=== PATIENT | female | born 1950 | race Caucasian/White ===

== ENCOUNTER 2016-07-20 03:56 | Emergency (ER) | payer OTHER ==
[~2016-07-20] VITALS: Ht 161.3 cm; Wt 83.9 kg
[~2016-07-20 03:56] MED LIST: ATOR-26 PO; Calcium PO; DICL-201 PO; EVS60; LISI5TAB3 PO; METO-217 PO; MULTTAB58 PO; OXYB5TAB74 PO; PANT40TA PO; TRIA25CA PO
[2016-07-20 03:57] VITALS: TEMP 36.7; Ht 161.3 cm; Wt 83.9 kg
[2016-07-20 04:03] VITALS: O2SAT 98
[2016-07-20] MEDS ORDERED: SODIUM CHLORIDE 0.9% 1000ML 1,000 ML IV ONE (04:15)
[2016-07-20] MEDS ORDERED: NITROGLYCERIN OINT 2% 1GM PACKET EXT ONE (04:15)
[2016-07-20] MEDS ORDERED: METO50TA16 PO (04:30)
[2016-07-20 04:31] LABS: BASO % 0.6 %; BASO ABS # 0.03 K/uL (0-0.2); COMPLETE YES; EOS % 2.8 %; HEMATOCRIT 43.1 % (37-47); IG% 0.2 %; LYMPH % 31.4 %; LYMPH ABS # 1.71 K/uL (1.2-3.4); MEAN CELL VOLUME 93.1 fL (80-100); MEAN CORPUSCULAR HEMOGLOBIN 32.4 pg (25-34); MEAN CORPUSCULAR HGB CONC 34.8 g/dl (32-36); MEAN PLATELET VOLUME 9.8 fL (7.4-10.4); MONO % 8.4 %; NEUT % 56.6 %; PLATELET COUNT 201 K/uL (130-400); RED BLOOD COUNT 4.63 M/uL (4.2-5.4); WHITE BLOOD COUNT 5.45 K/uL (4.8-10.8)
[2016-07-20 04:44] LABS: ALT/SGPT 52 U/L (12-78); BLOOD UREA NITROGEN 19 mg/dl (7-18); CALCIUM 9.6 mg/dl (8.5-10.1); CARBON DIOXIDE 26 mmol/L (21-32); CHLORIDE 100 mmol/L (98-107); GLUCOSE 109 mg/dl (70-99); SODIUM 140 mmol/L (136-145)
[2016-07-20 04:53] LABS: ALKALINE PHOSPHATASE 129 U/L (45-117)
[2016-07-20 05:11] LABS: POTASSIUM 3.6 mmol/L (3.5-5.1); PROTHROMBIN TIME (PATIENT) 10.4 SECONDS (9.0-12.0)
[2016-07-20 05:19] LABS: MAGNESIUM 1.9 mg/dl (1.8-2.4)
[2016-07-20 06:16] LABS: MANUAL MICROSCOPIC REQUIRED? NO; REVIEW REQ? NO; URINE APPEARANCE CLEAR (CLEAR); URINE BILIRUBIN NEG (NEG); URINE COLOR YELLOW; URINE EPITHELIAL CELL AUTO 0-5 /lpf (0-5); URINE NITRITE NEG (NEG); URINE PH 6.5 (4.5-7.5); URINE SPECIFIC GRAVITY 1.003 (1.000-1.030); UROBILINOGEN NEG (NEG); ZZUR CULT IF INDIC CLEAN CATCH NO
[2016-07-20] MEDS ORDERED: METOPROLOL TARTRATE 50 MG TAB PO STA (06:18)
[2016-07-20] MEDS ORDERED: HydrALAZINE HCL 20 MG/ML VIAL IV. STA (06:18)
--- NOTE | 2016-07-20 07:29 | DIAGNOSTIC IMAGING REPORT ---
CHEST ONE VIEW PORTABLE CLINICAL HISTORY: Atypical chest pain. Cold symptoms. COMPARISON STUDY: No previous studies for comparison. FINDINGS: The heart is mildly enlarged. There is mild aortic tortuosity. There is no failure. There is no focal pulmonary consolidation. There are no pleural effusions.[ IMPRESSION: AP portable study. No acute findings. Electronically signed by: Jesus Rubalcava M.D. 07/20/2016 7:27 AM
--- NOTE | 2016-07-20 07:59 | EMERGENCY ROOM VISIT NOTE ---
ED Visit Note First contact with patient: 04:03 I have personally evaluated and examined this patient. I agree with assessment and plan of Aleksandr Barros PA-C. 66 yr old female with left chest pain radiating to shoulder concerning for ACS though initial EKG/Trop normal. Much improved with nitro and with BP coming down.
[2016-07-20] MEDS ORDERED: PERFLUTREN LIPID MICROSPHERE (DEFINITY) IV ONE (09:47)
--- NOTE | 2016-07-20 10:44 | Discharge Instructions ---
Discharge Instructions Admission Reason for Admission: Chest Pain Discharge Discharge Diagnosis / Problem: Chest pain. non-cardiac. Dyspepsia Discharge Goals Goal(s): Decrease discomfort Activity Recommendations Activity Limitations: resume your previous activity . Instructions / Follow-Up Instructions / Follow-Up dr morales in one week Current Hospital Diet Patient's current hospital diet: Discharge Diet Recommended Diet: Low Fat Diet Pending Studies Studies pending at discharge: no Laboratory Results Hemoglobin A1c Test 07/07/16 11:00 Range/Units Estimated Average Glucose 114 mg/dl Hemoglobin A1c 5.6 4.5-5.6 % Lipid Panel Test 07/07/16 11:00 Range/Units Triglycerides Level 419 H 0-150 mg/dl Cholesterol Level 219 H 0-200 mg/dl HDL Cholesterol 55 mg/dl LDL Cholesterol Direct 109 mg/dl Cholesterol/HDL Ratio 4.0 LDL Cholesterol, Calculated mg/dl Medical Emergencies . Who to Call and When: Medical Emergencies: If at any time you feel your situation is an emergency, please call 911 immediately. . Non-Emergent Contact Non-Emergency issues call your: Primary Care Provider . . "Provider Documentation" section prepared by Sahil Morales. VTE Core Measure Inpt VTE Proph given/why not?: Treatment not indicated
[2016-07-20 10:56] VITALS: BP 160/86; PULSE 75; O2SAT 95
--- NOTE | 2016-07-20 10:58 | EXERCISE STRESS ECHO ---
*NOTICE TO RECEIVING [employer] This information is strictly Confidential and protected under [place] law. [place] law prohibits you from making any further disclosure of this information unless further disclosure is expressly permitted by the written consent of the person to whom it pertains or is authorized by law. A general authorization for the release of medical or other information is not sufficient for this purpose. Hospital accepts no responsibility if the information is made available to any other person, INCLUDING THE PATIENT. Interpretation Summary * The stress ECG response was normal * Suboptimal stress test due to inadequate maximum heart rate. * Stress wall motion was normal. * Normal resting biventricular systolic function. Moderate concentric left ventricular hypertrophy. Left ventricular diastolic dysfunction. Normal chamber dimensions. Normal echo response to exercise at 75 % MPHR. No significant valvular abnormalities. * -- Conclusions -- * Aortic valve sclerosis mild, without significant aortic valvular stenosis. Procedure Details * ECHOEX, CPT #86264 * ECHO COLOR FLOW, CPT #[id number] * ECHO DOPPLER, CPT #80682 * The study was technically limited with all images being suboptimal in quality. * A contrast injection of Definity was performed to improve assessment of LV function. * Contrast was injected into an intravenous site in the left arm. * One vial of Definity ultrasound contrast was diluted in normal saline to a total volume of 10 ml. A total of '5' ml of solution was administered during imaging. * Lot # [id number] of Definity utilized for procedure. * Expiration date DEC 31. * The attending nurse who injected the contrast agent was IVON LUND CPL, RN. Left Ventricle * The left ventricle is normal in size. * There is moderate concentric left ventricular hypertrophy. * Ejection Fraction = 55-60%. * Left ventricular systolic function is normal. * The left ventricular ejection fraction increases normally with stress. The left ventricular end-systolic cavity size reduces post-stress (normal response). The left ventricular wall motion with stress is normal. * A full diastolic examination was done with clinical findings of Class I diastolic dysfunction. * Resting wall motion: Normal. Stress wall motion: Appropriate increase in Left ventricular systolic function and decrease in cavity size. No stress induced segmental wall motion abnormalities. Right Ventricle * The right ventricle is normal in size and function. Atria * The left atrial size is normal. * Right atrial size is normal. * No ASD detected; PFO is not assessed. Mitral Valve * There is mild mitral annular calcification. * There is no mitral valve stenosis. * There is no mitral regurgitation noted. Tricuspid Valve * The tricuspid valve is not well visualized. * No tricuspid regurgitation. Aortic Valve * The aortic valve is trileaflet. * The aortic valve opens well. * Aortic valve sclerosis mild, without significant aortic valvular stenosis. * No aortic regurgitation is present. Pulmonic Valve * The pulmonic valve is not well visualized. * There is no pulmonic valvular regurgitation. Great Vessels * The aortic root is normal size. Stress Parameters * Normal baseline electrocardiogram. * The stress ECG response was normal * The stress portion of this study was personally supervised by the undersigned interpreting physician. * Rest heart rate was '69' BPM. * Rest blood pressure was '140/92' * Maximum heart rate achieved was 115 bpm. * Maximum heart rate was 75 % of maximum age-predicted heart rate. * Maximum blood pressure was '178/92' * Total exercise time was '03:00' * Maximum exercise MET level achieved was '4.60' METS * Maximum treadmill speed was '1.70' miles per hour. * Maximum treadmill elevation was '10.00'% grade. * Exercise was terminated due to 'SHORTNESS OF BREATH' * Target Heart Rate was not achieved due to dyspnea. * No chest pain during or following exercise. MMode 2D Measurements and Calculations IVSd 1.7 cm IVSs 1.8 cm LVIDd 3.6 cm LVIDs 2.5 cm LVPWd 1.0 cm LVPWs 1.6 cm IVS/LVPW 1.7 FS 28.6 % EDV(Teich) 53.2 ml ESV(Teich) 23.4 ml EF(Teich) 56.1 % EDV(cubed) 45.4 ml ESV(cubed) 16.5 ml EF(cubed) 63.6 % % IVS thick 6.4 % % LVPW thick 61.8 % LV mass(C)d 165.4 grams LV mass(C)dI 88.0 grams/m\S\2 LV mass(C)s 162.2 grams LV mass(C)sI 86.3 grams/m\S\2 SV(Teich) 29.9 ml SI(Teich) 15.9 ml/m\S\2 SV(cubed) 28.9 ml SI(cubed) 15.4 ml/m\S\2 Ao root diam 3.7 cm Ao root area 10.6 cm\S\2 ACS 1.8 cm LA dimension 3.5 cm LA/Ao 0.96 LVOT diam 2.0 cm LVOT area 3.2 cm\S\2 LVAd ap4 28.7 cm\S\2 LVLd ap4 7.7 cm EDV(MOD-sp4) 88.7 ml EDV(sp4-el) 90.8 ml LVAs ap4 16.1 cm\S\2 LVLs ap4 5.6 cm ESV(MOD-sp4) 39.7 ml ESV(sp4-el) 39.0 ml EF(MOD-sp4) 55.3 % EF(sp4-el) 57.1 % LVAd ap2 24.1 cm\S\2 LVLd ap2 7.4 cm EDV(MOD-sp2) 64.3 ml EDV(sp2-el) 66.2 ml LVAs ap2 15.9 cm\S\2 LVLs ap2 6.2 cm ESV(MOD-sp2) 34.3 ml ESV(sp2-el) 34.3 ml EF(MOD-sp2) 46.6 % EF(sp2-el) 48.2 % LVLd %diff -3.03 % EDV(MOD-bp) 75.2 ml LVLs %diff 9.4 % ESV(MOD-bp) 39.1 ml EF(MOD-bp) 48.0 % SV(MOD-sp4) 49.1 ml SI(MOD-sp4) 26.1 ml/m\S\2 SV(MOD-sp2) 30.0 ml SI(MOD-sp2) 15.9 ml/m\S\2 SV(MOD-bp) 36.1 ml SI(MOD-bp) 19.2 ml/m\S\2 SV(sp4-el) 51.8 ml SI(sp4-el) 27.6 ml/m\S\2 SV(sp2-el) 31.9 ml SI(sp2-el) 17.0 ml/m\S\2 Doppler Measurements and Calculations MV E max lainey 73.5 cm/sec MV A max lainey 82.4 cm/sec MV E/A 0.89 MV P1/2t max lainey 79.9 cm/sec MV P1/2t 80.2 msec MVA(P1/2t) 2.7 cm\S\2 MV dec slope 291.8 cm/sec\S\2 MV dec time 0.23 sec Ao V2 max 119.5 cm/sec Ao max PG 5.7 mmHg Ao max PG (full) 1.5 mmHg JH(V,A) 2.8 cm\S\2 JH(V,D) 2.8 cm\S\2 LV V1 max PG 4.3 mmHg LV V1 max 103.2 cm/sec PA V2 max 80.5 cm/sec PA max PG 2.6 mmHg
--- NOTE | 2016-07-20 22:40 | INTERNAL MEDICINE CONSULTATION ---
DATE OF CONSULTATION: 07/20/2016 HISTORY OF PRESENT ILLNESS: A 66-year-old female who was seen in the Emergency Room this morning. The patient presented to the Emergency Room complaining of chest pain. She does not have any prior coronary artery disease. She is treated for arterial hypertension and hyperlipidemia. The patient had her dinner last night. She had chicken lasagna. This morning she woke up around 3:00 in the morning. She was complaining of pain mostly in the most upper epigastric area and the pain radiated upward into her chest and towards the left shoulder. She felt short of breath. She had no diaphoresis. No dizziness, no lightheadedness. No nausea or vomiting. The pain persisted. She got up and tried to walk it off but it persisted, so her brought her to the Emergency Room. The patient was evaluated by Dr. Robbins. Multiple tests were done. Her electrocardiogram was normal. Her troponin I was negative and the rest of her cardiac isoenzymes were also normal. Question whether she needed admission. I saw the patient in the Emergency Room. She was resting comfortably. Her blood pressure was markedly elevated. She was given 1 dose of IV hydralazine 10 mg and she was also given her usual dose of metoprolol 75 mg p.o. PAST MEDICAL HISTORY: Her medical problems include: 1. Arterial hypertension. 2. Hyperlipidemia. 3. Inflammatory arthritis. 4. Gastroesophageal reflux. 5. Obesity. 6. Hyperglycemia. MEDICATIONS: Her home medication list included: 1. Metoprolol tartrate 75 mg twice a day. 2. Triamterene/HCTZ 37.5/25 one tablet daily. 3. Diclofenac 75 mg twice a day. 4. Pantoprazole 40 mg daily. 5. Lisinopril 5 mg daily. 6. Atorvastatin 80 mg daily. 7. Oxybutynin 5 mg twice a day. PHYSICAL EXAMINATION: GENERAL: Well developed, in no acute distress. Her recorded weight was 83.9 kg, height 161.3 cm, BMI 32.2. VITAL SIGNS: Blood pressure 176/85, pulse 75, respirations 18, oxygen saturation 97% on room air. Her temperature was 36.7. SKIN: Warm and dry. No rash. HEENT: She usually wears glasses. No mucosal abnormality. NECK: Supple without adenopathy or thyromegaly. No JVD. HEART: Regular heart sounds. No murmur, rub, or gallop. LUNGS: Clear. ABDOMEN: Soft, nontender. No organomegaly or masses. BACK: No spinal tenderness. EXTREMITIES: No edema, clubbing, or cyanosis. Good pulses. LABORATORY TESTS: WBC count 5450, hemoglobin 15, hematocrit 43.1, platelet count 201,000. Sodium 140, potassium 3.6, chloride 100, CO2 26, BUN 19, creatinine 1.0, glucose 109, calcium 9.6, magnesium 1.9, total bilirubin 0.8, AST 32, ALT 52, alkaline phosphatase 129, total CK 168, MB fraction 2.8. Troponin I less than 0.015 on arrival to the Emergency Room and I repeated a second one and was still less than 0.015 at 6:35 a.m. Total protein 8.6, albumin 4.3, globulin 4.3. Her lipase was 172 and TSH 3.770. Her electrocardiogram was normal. Her chest x-ray showed no cardiopulmonary abnormality. ASSESSMENT: 1. Chest pain. 2. Arterial hypertension. 3. Hyperlipidemia. 4. Obesity. 5. Inflammatory arthritis. 6. Hyperglycemia. PLAN: 1. After I saw the patient in the Emergency Room, I made arrangements for her to have a stress echo done. This was done. I spoke later after the test was done, to Dr. Kim. Even though the patient did not reach the maximum predicted heart rate, but his feeling was that the test was negative for any evidence of any ischemia. She had no EKG changes and no echocardiogram evidence of any ischemia. 2. The patient was discharged from the Emergency Room. She will resume all her medications. 3. Follow up in the office in 1 week. 4. It is very likely that the chest pain that she presented with is most likely dyspeptic in nature.
--- NOTE | 2016-07-21 06:30 | EMERGENCY ROOM VISIT NOTE ---
History First contact with patient: 04:03 Chief Complaint: CHEST PAIN Stated Complaint: CHEST PAIN Nursing Triage Summary: pt woke with mid sternal CP that radiates to left and her back. pt states it happened approx 0245. hx HTN. pt took tums. feels like pain may be gas but Tums didn't work. reports cold symptoms started today, has nasal drainage and cough. feels like she has been mouth breathing today. +SOB all day with cold symptoms. History of Present Illness The patient is a 66 year old female who presents to the Emergency Room with complaints of midsternal chest pain radiating to her left side and through to her back. The patient states that it began about 1 hour 15 minutes ago. She thought her symptoms might be GERD related and took times without relief. The patient has had some head cold/stuffiness today. She does have a family history of cardiac disease. She does not herself have a history of cardiac disease. She states the pain is dull. She has had some shortness of breath. Activity does not appear to improve or worsen her symptoms. She is allergic to aspirin and has a history of hives with this, and has not taken anything over- the-counter for her symptoms. Review of Systems More than 10 systems were reviewed and otherwise negative with the exception of history of present illness. Past Medical/Surgical History History of GERD and dyslipidemia Family History No pertinent family history Social History Smoking Status: Former Smoker Current/Historical Medications Scheduled Atorvastatin (Lipitor), 80 MG PO QAM Diclofenac (Voltaren), 75 MG PO BID Lisinopril (Zestril), 5 MG PO HS Metoprolol Tartrate (Lopressor) (Lopressor), 75 MG PO BID Oxybutynin Chloride (Ditropan), 5 MG PO QAM Pantoprazole (Protonix), 40 MG PO QAM Triamterene & Hydrochlorothiaz (Hctz/Triamterene), 37.5 CAP PO QAM Allergies Coded Allergies: Aspirin (Unverified Allergy, Unknown, HIVES, 07/20/16) Ibuprofen (Unverified Allergy, Unknown, HIVES, 07/20/16) Naproxen (Verified Allergy, Unknown, HIVES, 07/20/16) Piroxicam (Verified Allergy, Unknown, HIVES, 07/20/16) Sulfa Drugs (Unverified Allergy, Unknown, VOMITING/HIVES, 07/20/16) Tetracycline (Verified Allergy, Unknown, HIVES, 07/20/16) Physical Exam Vital Signs Date Time Temp Pulse Resp B/P Pulse Ox O2 Delivery O2 Flow Rate FiO2 07/20/16 10:56 75 18 160/86 95 07/20/16 09:58 75 18 155/91 97 Room Air 07/20/16 08:17 73 18 173/81 97 Room Air 07/20/16 08:02 82 07/20/16 07:31 75 18 176/85 97 Room Air 07/20/16 06:59 77 18 172/90 98 Room Air 07/20/16 06:02 75 18 195/99 98 Room Air 07/20/16 05:12 76 18 179/106 98 Room Air 07/20/16 04:09 85 07/20/16 04:07 97 Room Air 07/20/16 04:03 98 Room Air 07/20/16 03:57 36.7 79 20 200/94 97 Room Air Pain Rating (0-10): 0 Physical Exam VITALS: Vitals are noted on the nurse's note and reviewed by myself. Vital signs with elevated blood pressure GENERAL: Well-developed, well-nourished, white female, who is in no acute distress and resting comfortably. Patient is cooperative with the examination. HEAD: Normocephalic atraumatic. HEART: Regular rate and rhythm without murmurs gallops or rubs. LUNGS: Clear to auscultation bilaterally without wheezes, rales or rhonchi. No retractions or accessory muscle use. ABDOMEN: Positive normal bowel sounds x 4. Soft, nontender, without masses or organomegaly. No guarding or rebound tenderness. MUSCULOSKELETAL: No muscle atrophy, erythema, or edema noted. Full range of motion without joint tenderness in all extremities Medical Decision & Procedures ER Provider Diagnostic Interpretation: CHEST ONE VIEW PORTABLE CLINICAL HISTORY: Atypical chest pain. Cold symptoms. COMPARISON STUDY: No previous studies for comparison. FINDINGS: The heart is mildly enlarged. There is mild aortic tortuosity. There is no failure. There is no focal pulmonary consolidation. There are no pleural effusions.[ IMPRESSION: AP portable study. No acute findings. Laboratory Results 07/20/16 04:10 Red Blood Count 4.63, Mean Corpuscular Volume 93.1, Mean Corpuscular Hemoglobin 32.4, Mean Corpuscular Hemoglobin Concent 34.8, Mean Platelet Volume 9.8, Neutrophils (%) (Auto) 56.6, Lymphocytes (%) (Auto) 31.4, Monocytes (%) (Auto) 8.4, Eosinophils (%) (Auto) 2.8, Basophils (%) (Auto) 0.6, Neutrophils # (Auto) 3.09, Lymphocytes # (Auto) 1.71, Monocytes # (Auto) 0.46, Eosinophils # (Auto) 0.15, Basophils # (Auto) 0.03 07/20/16 04:10 07/20/16 04:50 Test 07/20/16 04:10 07/20/16 04:50 07/20/16 06:00 07/20/16 06:35 White Blood Count 5.45 K/uL (4.8-10.8) Red Blood Count 4.63 M/uL (4.2-5.4) Hemoglobin 15.0 g/dL (12.0-16.0) Hematocrit 43.1 % (37-47) Mean Corpuscular Volume 93.1 fL (80-100) Mean Corpuscular Hemoglobin 32.4 pg (25-34) Mean Corpuscular Hemoglobin Concent 34.8 g/dl (32-36) Platelet Count 201 K/uL (130-400) Mean Platelet Volume 9.8 fL (7.4-10.4) Neutrophils (%) (Auto) 56.6 % Lymphocytes (%) (Auto) 31.4 % Monocytes (%) (Auto) 8.4 % Eosinophils (%) (Auto) 2.8 % Basophils (%) (Auto) 0.6 % Neutrophils # (Auto) 3.09 K/uL (1.4-6.5) Lymphocytes # (Auto) 1.71 K/uL (1.2-3.4) Monocytes # (Auto) 0.46 K/uL (0.11-0.59) Eosinophils # (Auto) 0.15 K/uL (0-0.5) Basophils # (Auto) 0.03 K/uL (0-0.2) RDW Standard Deviation 46.2 fL (36.4-46.3) RDW Coefficient of Variation 13.5 % (11.5-14.5) Immature Granulocyte % (Auto) 0.2 % Immature Granulocyte # (Auto) 0.01 K/uL (0.00-0.02) Anion Gap 14.0 mmol/L (3-11) Est Creatinine Clear Calc Drug Dose 55.8 ml/min Estimated GFR () 67.0 Estimated GFR (Non- 57.8 BUN/Creatinine Ratio 19.0 (10-20) Calcium Level 9.6 mg/dl (8.5-10.1) Total Bilirubin 0.8 mg/dl (0.2-1) Alanine Aminotransferase (ALT/SGPT) 52 U/L (12-78) Alkaline Phosphatase 129 U/L (45-117) Creatine Kinase MB 2.8 ng/ml (0.5-3.6) Creatine Kinase MB Ratio (0-3.0) Total Protein 8.6 gm/dl (6.4-8.2) Albumin 4.3 gm/dl (3.4-5.0) Globulin 4.3 gm/dl (2.5-4.0) Albumin/Globulin Ratio 1.0 (0.9-2) Lipase 172 U/L (73-393) Thyroid Stimulating Hormone (TSH) 3.770 uIu/ml (0.300-4.500) Prothrombin Time 10.4 SECONDS (9.0-12.0) Prothromb Time International Ratio 1.0 (0.9-1.1) Activated Partial Thromboplast Time 26.2 SECONDS (21.0-31.0) Partial Thromboplastin Ratio 1.0 D-Dimer 410 ug/L FEU (0-500) Magnesium Level 1.9 mg/dl (1.8-2.4) Aspartate Amino Transf (AST/SGOT) 32 U/L (15-37) Total Creatine Kinase 168 U/L (26-192) Urine Color YELLOW Urine Appearance CLEAR (CLEAR) Urine pH 6.5 (4.5-7.5) Urine Specific [place] 1.003 (1.000-1.030) Urine Protein NEG (NEG) Urine Glucose (UA) NEG (NEG) Urine Ketones NEG (NEG) Urine Occult Blood NEG (NEG) Urine Nitrite NEG (NEG) Urine Bilirubin NEG (NEG) Urine Urobilinogen NEG (NEG) Urine Leukocyte Esterase TRACE (NEG) Urine WBC (Auto) 1-5 /hpf (0-5) Urine RBC (Auto) 0-4 /hpf (0-4) Urine Hyaline Casts (Auto) 0 /lpf (0-5) Urine Epithelial Cells (Auto) 0-5 /lpf (0-5) Urine Bacteria (Auto) NEG (NEG) Troponin I < 0.015 ng/ml (0-0.045) Medications Administered Medications (Trade) Dose Ordered Sig/Oneil Route Start Time Stop Time Status Last Admin Dose Admin Nitroglycerin 1 inch 1 inch NOW ONCE EXT 07/20/16 04:15 07/20/16 04:17 DC 07/20/16 04:27 1 INCH Sodium Chloride (Nss 1000ml) 1,000 ml @ 999 mls/hr Q1H1M ONCE IV 07/20/16 04:15 07/20/16 05:15 DC 07/20/16 04:27 999 MLS/HR Hydralazine HCl (HydrALAZINE INJ) 10 mg NOW STAT IV. 07/20/16 06:18 07/20/16 06:32 DC 07/20/16 06:38 10 MG Metoprolol Tartrate (Lopressor Tab) 75 mg ONE STAT PO 07/20/16 06:18 07/20/16 06:32 DC 07/20/16 06:38 75 MG Perflutren Lipid Microsphere (Definity) 2 ml ONE ONCE IV 07/20/16 09:47 07/20/16 09:48 DC 07/20/16 09:48 2 ML ED Course Physical exam and history were performed. Nursing notes and EMR were reviewed. Patient appears to have central chest pain radiating to her left side chest. The patient does have elevated blood pressure. EKG was performed and was normal sinus rhythm without acute ST elevation or evidence of ischemia. IV access was established and labs were obtained. Chest x-ray was performed. The patient was given 1 inch Nitropaste and placed on a case monitor. The patient's blood work is as above and was reviewed. She does not have a significantly elevated white blood cell count, anemia, bandemia, gross electrolyte imbalance. Troponin 1 is negative. She did have some improvement of her blood pressure with Nitropaste, however this did go up and down. I do have concern regarding the patient's symptoms, as they may be cardiac in nature. I discussed the case with patient's primary care physician, Dr. Kayla He, who agreed to evaluate the patient here in the department. Please see Dr. Morales's dictation for further patient course, plan, and disposition. The chart was completed utilizing [employer] Speech Voice Recognition Software. Grammatical errors, random word insertions, pronoun errors, and incomplete sentences are an occasional consequence of this system due to software limitations, ambient noise, and hardware issues. Any formal questions or concerns about the content, text, or information contained within the body of this dictation should be directly addressed to the provider for clarification. . Medical Decision Differential diagnosis includes, but is not limited to: Myocardial infarction, dysrhythmia, pericarditis, pneumothorax, aortic aneurysm/dissection, DVT/PE, anxiety, GERD, PUD, electrolyte imbalance, thyroid disorder, pneumonia, bronchitis, pancreatitis, and others Impression Primary Impression: Non-cardiac chest pain Departure Information Dispostion Home / Self-Care Referrals Sahil Zaman M.D. (PCP) Forms HOME CARE DOCUMENTATION FORM, IMPORTANT VISIT INFORMATION Patient Instructions A Signature Page, [facility] [employer] [facility]
== END 2016-07-20 10:56 | disposition home or self-care (01) ==
LOC: C.EDB 03:57 → C.EDA 10:56
DX: R07.89 Other chest pain (principal); I10 Essential (primary) hypertension; E66.9 Obesity, unspecified; E78.5 Hyperlipidemia, unspecified; K21.9 Gastro-esophageal reflux disease without esophagitis; Z87.891 Personal history of nicotine dependence; Z79.899 Other long term (current) drug therapy

== ENCOUNTER → 2017-01-09 | Outpatient (CLI) | payer OTHER ==
[~2017-01-09] MED LIST changes: +CALC500C70 PO; -Calcium PO; +DTR/5 PO; -EVS60; +LSN5 PO; -METO-217 PO; +METO50TA16 PO; +MULT-506 PO; -MULTTAB58 PO; -OXYB5TAB74 PO; +TRIA75TA PO
== END | disposition home or self-care (01) ==
LOC: C.PAPS 16:08
PROVIDERS: ATTEND Internal Medicine
DX: Z12.4 Encounter for screening for malignant neoplasm of cervix (principal)

== ENCOUNTER → 2017-01-09 | Outpatient (CLI) | payer OTHER ==
[~2017-01-09] MED LIST changes: -DTR/5 PO; +OXYB5TAB74 PO
[2017-01-09 13:23] LABS: BASO % 0.8 %; BASO ABS # 0.04 K/uL (0-0.2); COMPLETE YES; EOS % 2.3 %; IG% 0.2 %; LYMPH % 28.3 %; LYMPH ABS # 1.45 K/uL (1.2-3.4); MEAN CELL VOLUME 90.5 fL (80-100); MEAN CORPUSCULAR HEMOGLOBIN 30.5 pg (25-34); MEAN CORPUSCULAR HGB CONC 33.7 g/dl (32-36); MEAN PLATELET VOLUME 10.4 fL (7.4-10.4); MONO % 6.2 %; NEUT % 62.2 %; PLATELET COUNT 233 K/uL (130-400); WHITE BLOOD COUNT 5.13 K/uL (4.8-10.8)
[2017-01-09 13:26] LABS: ESTIMATED AVERAGE GLUCOSE 123 mg/dl; HA1C FLAG Normal (Normal)
[2017-01-09 13:42] LABS: ALT/SGPT 47 U/L (12-78); AST/SGOT 34 U/L (15-37); BLOOD UREA NITROGEN 21 mg/dl (7-18); BUN/CREATININE RATIO 21.4 (10-20); CARBON DIOXIDE 27 mmol/L (21-32); CHLORIDE 102 mmol/L (98-107); CHOLESTEROL 187 mg/dl (0-200); GLUCOSE 104 mg/dl (70-99); POTASSIUM 3.4 mmol/L (3.5-5.1); SODIUM 139 mmol/L (136-145); TRIGLYCERIDES 307 mg/dl (0-150); VERY LOW DENSITY LIPOPROT CALC 61 mg/dl
[2017-01-09 13:44] LABS: ALB/GLOB RATIO 1.3 (0.9-2); ALKALINE PHOSPHATASE 69 U/L (45-117); CHOLESTEROL/HDL RATIO 4.3; HDL CHOLESTEROL 43 mg/dl
[2017-01-09 13:46] LABS: CALCIUM 9.8 mg/dl (8.5-10.1)
== END | disposition home or self-care (01) ==
LOC: C.LABSPEC 12:18
PROVIDERS: ATTEND Internal Medicine
DX: R73.9 Hyperglycemia, unspecified (principal); I10 Essential (primary) hypertension; E78.5 Hyperlipidemia, unspecified; M06.4 Inflammatory polyarthropathy; B35.1 Tinea unguium

== ENCOUNTER → 2017-01-13 | Outpatient (CLI) | payer OTHER | END | disposition home or self-care (01) | LOC: C.LABSPEC 16:52 | PROVIDERS: ATTEND Internal Medicine | DX: Z12.11 Encounter for screening for malignant neoplasm of colon (principal) ==

== ENCOUNTER 2017-03-14 12:11 | Emergency (ER) | payer OTHER ==
[~2017-03-14 12:11] MED LIST changes: -CALC500C70 PO; -LSN5 PO; -MULT-506 PO; -TRIA75TA PO
[2017-03-14 12:14] VITALS: Ht 160 cm
[2017-03-14 12:42] VITALS: O2SAT 95
[2017-03-14 12:50] LABS: HEMATOCRIT 37.9 % (37-47); MEAN CELL VOLUME 87.3 fL (80-100); MEAN CORPUSCULAR HEMOGLOBIN 30.4 pg (25-34); MEAN CORPUSCULAR HGB CONC 34.8 g/dl (32-36); MEAN PLATELET VOLUME 9.8 fL (7.4-10.4); PLATELET COUNT 235 K/uL (130-400); RED BLOOD COUNT 4.34 M/uL (4.2-5.4)
[2017-03-14] MEDS ORDERED: ACETAMINOPHEN 500 MG TAB PO STA (12:53)
--- NOTE | 2017-03-14 12:59 | EMERGENCY ROOM VISIT NOTE ---
History Report prepared by Ankuribe: Ladi Null Under the Supervision of: Dr. Flaco Alcantara M.D. First contact with patient: 12:47 Chief Complaint: CHEST PAIN Stated Complaint: CHEST PAIN, NAUSEA, HEADACHE, UNDER EYE PRESSURE Nursing Triage Summary: Patient c/o mid sternal chest pain that began approx 10 minutes ago while she was driving. Pain is sharp, mid chest in to left chest, shoulder and bilateral jaw. Associated nausea when pain began. Hx controlled arhythmia with Lopressor. History of Present Illness The patient is a 66 year old female who presents to the Emergency Room with complaints of sudden stabbing central chest pain that started an hour ago. The patient states that she felt nauseous and had jaw, left shoulder, and back pain. She also notes she was slightly short of breath and had a headache. She ranks her pain as a 5/10. She denies any sweating with the onset of her symptoms. She was driving when the pain began. She is under a lot of stress right now--her is ill. Source of History: patient Onset: an hour ago Position: chest Symptom Intensity: 5/10 Quality: stabbing Timing: other (sudden) Associated Symptoms: + headache, + SOB Note: Pt notes jaw, left shoulder, and back pain. Pt denies sweating with onset of symptoms. Review of Systems See HPI for pertinent positives & negatives. A total of 10 systems reviewed and were otherwise negative. Past Medical & Surgical Medical Problems: (1) Arrhythmia Family History no pertinent family history stated. Social History Smoking Status: Former Smoker Marital Status: Current/Historical Medications Scheduled Atorvastatin (Lipitor), 80 MG PO QAM Calcium/Vitamin D (Os-[place]on 500 Plus D), 1 TAB PO DAILY Diclofenac (Voltaren), 75 MG PO BID Lisinopril (Lisinopril), 5 MG PO HS Metoprolol Tartrate (Lopressor) (Lopressor), 75 MG PO BID Multivitamin (Multivitamin), 1 TAB PO DAILY Oxybutynin Chloride (Ditropan), 5 MG PO QAM Pantoprazole (Protonix), 40 MG PO QAM Triamterene & Hydrochlorothiaz (Hctz/Triamterene), 1 TAB PO DAILY Allergies Coded Allergies: Aspirin (Unverified Allergy, Unknown, HIVES, 03/14/17) Celecoxib (Unverified Allergy, Unknown, ., 03/14/17) Ibuprofen (Unverified Allergy, Unknown, HIVES, 03/14/17) Naproxen (Verified Allergy, Unknown, HIVES, 03/14/17) Piroxicam (Verified Allergy, Unknown, HIVES, 03/14/17) Sulfa Drugs (Unverified Allergy, Unknown, VOMITING/HIVES, 03/14/17) Tetracycline (Verified Allergy, Unknown, HIVES, 03/14/17) Physical Exam Vital Signs Date Time Temp Pulse Resp B/P (MAP) Pulse Ox O2 Delivery O2 Flow Rate FiO2 03/14/17 16:32 37.5 63 14 176/85 95 03/14/17 15:51 64 14 192/63 96 Room Air 03/14/17 14:41 63 9 100 03/14/17 14:31 156/73 03/14/17 14:11 62 7 96 03/14/17 14:01 158/78 03/14/17 13:41 61 9 98 03/14/17 13:31 169/82 03/14/17 13:27 63 16 151/100 97 03/14/17 13:11 66 15 98 03/14/17 13:01 151/100 03/14/17 12:42 95 Room Air 03/14/17 12:42 37.5 68 20 191/88 95 Room Air 2.0 03/14/17 12:14 37.5 68 20 191/88 95 Room Air 03/14/17 12:14 Room Air Physical Exam GENERAL: Patient is in no acute distress. HEENT: No acute trauma, normocephalic atraumatic, mucous membranes moist, no nasal congestion, no scleral icterus. NECK: No stridor, no adenopathy, no meningismus, trachea is midline. LUNGS: Clear to auscultation bilaterally, no wheeze, no rhonchi, breath sounds equal. HEART: Without murmurs gallops or rubs, regular rate and rhythm. CHEST: Tender over left chest wall near the breast. ABDOMEN: Soft, nontender, bowel sounds positive, no hernias, no peritonitis. EXTREMITIES: No cyanosis or edema, full range of motion of all the joints without pain or difficulty, no signs for acute trauma. NEUROLOGIC: Oriented x 3, no acute motor or sensory deficits, no focal weakness. SKIN: No rash, no jaundice, no diaphoresis. Medical Decision & Procedures ER Provider Diagnostic Interpretation: Radiology results as stated below per my review and radiologist interpretation: CHEST ONE VIEW PORTABLE FINDINGS: Lung volumes are normal. No pneumothorax or pleural effusion is present. There is no consolidation or evidence of pulmonary edema. Mild cardiomegaly is unchanged. IMPRESSION: 1. No acute cardiopulmonary findings. 2. Stable mild cardiomegaly. Electronically signed by: Nick Pierre M.D. (CHEST FOR PE) ANGIO WITH FINDINGS: Talent Advisor topogram: Unremarkable. Pulmonary vasculature: The study is adequate for assessment of the pulmonary vascular tree. No filling defect within the pulmonary arteries to suggest embolus. Main pulmonary artery not enlarged. No flattening of the interventricular septum. No intracardiac filling defect. Remaining chest: On soft tissue windows, normal thyroid and thoracic inlet. No axillary, supraclavicular, hilar, or mediastinal lymphadenopathy. Atherosclerosis of the aortic arch. Multichamber enlargement of heart. Minimal aortic valve and coronary artery calcification. No pericardial or pleural effusion. Upper abdomen normal. On lung windows, minimal dependent changes likely atelectasis. Airways patent. On bone windows, degenerative changes of the spine. IMPRESSION: 1. No evidence of pulmonary embolus. No acute intrathoracic pathology. 2. Minimal dependent atelectasis. 3. Cardiomegaly. Electronically signed by: Peng Phillip M.D. Laboratory Results 03/14/17 12:30 03/14/17 12:30 Test 03/14/17 12:30 03/14/17 15:43 Red Blood Count 4.34 M/uL (4.2-5.4) Mean Corpuscular Volume 87.3 fL (80-100) Mean Corpuscular Hemoglobin 30.4 pg (25-34) Mean Corpuscular Hemoglobin Concent 34.8 g/dl (32-36) RDW Standard Deviation 42.9 fL (36.4-46.3) RDW Coefficient of Variation 13.3 % (11.5-14.5) Mean Platelet Volume 9.8 fL (7.4-10.4) Prothrombin Time 10.3 SECONDS (9.0-12.0) Prothromb Time International Ratio 1.0 (0.9-1.1) Activated Partial Thromboplast Time 25.7 SECONDS (21.0-31.0) Partial Thromboplastin Ratio 1.0 D-Dimer 600 ug/L FEU (0-500) Anion Gap 7.0 mmol/L (3-11) Estimated GFR () 71.3 Estimated GFR (Non- 61.5 BUN/Creatinine Ratio 31.7 (10-20) Calcium Level 9.7 mg/dl (8.5-10.1) Total Bilirubin 1.0 mg/dl (0.2-1) Aspartate Amino Transf (AST/SGOT) 33 U/L (15-37) Alanine Aminotransferase (ALT/SGPT) 41 U/L (12-78) Alkaline Phosphatase 79 U/L (45-117) Total Creatine Kinase 405 U/L (26-192) Creatine Kinase MB 4.2 ng/ml (0.5-3.6) Creatine Kinase MB Ratio 1.0 (0-3.0) Total Protein 7.4 gm/dl (6.4-8.2) Albumin 3.8 gm/dl (3.4-5.0) Globulin 3.6 gm/dl (2.5-4.0) Albumin/Globulin Ratio 1.1 (0.9-2) Bedside Troponin I < 0.030 ng/ml (0-0.045) Laboratory results reviewed by me. Medications Administered Medications (Trade) Dose Ordered Sig/Oneil Route Start Time Stop Time Status Last Admin Dose Admin Acetaminophen (Tylenol Tab) 1,000 mg NOW STAT PO 03/14/17 12:53 03/14/17 12:57 DC 03/14/17 13:10 1,000 MG ECG Indication: chest pain Rate (beats per minute): 69 Rhythm: normal sinus Findings: no acute ischemic change, no ectopy ED Course 1250: The patient was evaluated in room C6. A complete history and physical exam was performed. 1253: Tylenol Tab 1000 mg PO. 1415: Ioversol 100 ml IV. 1430: The patient is doing fine, agreed to a CT scan. 1540: The patient is doing fine. Awaiting second troponin before discharge. 1600: Reevaluated the patient. Discussed results and discharge instructions: She verbalized understanding and agreement. The patient is ready for discharge. Medical Decision Differential diagnosis includes but is not limited to: musculoskeletal pain, aortic dissection, PE, pneumothorax, pneumonia, SD, pericarditis. There is no leukocytosis or concerning anemia. No significant electrolyte abnormality, kidney failure or hepatitis. There is no coagulopathy. EKG shows a normal sinus rhythm, no acute ischemia. Cardiac enzyme testing 1 is not consistent with acute cardiac injury. Chest x-ray does not show mediastinal widening, pneumonia or pneumothorax. D-dimer testing was positive. Chest CT does not show evidence for PE, no obvious aortic dissection. The patient presents with sudden, sharp chest pain. Her workup is benign. Her pain seems reproducible on exam. During her stay, she was given oral Tylenol for pain control. The patient's pain is likely musculoskeletal. She was reassured. She is being discharged home with outpatient follow-up. Medication Reconcilliation Current Medication List: was personally reviewed by me Blood Pressure Screening Patient's blood pressure: Elevated blood pressure Blood pressure disposition: Referred to PCP Impression Primary Impression: Left sided chest pain Scribe Attestation The scribe's documentation has been prepared under my direction and personally reviewed by me in its entirety. I confirm that the note above accurately reflects all work, treatment, procedures, and medical decision making performed by me. Departure Information Dispostion Home / Self-Care Referrals Sahil Zaman M.D. (PCP) Forms Call Back Authorization, HOME CARE DOCUMENTATION FORM, IMPORTANT VISIT INFORMATION Patient Instructions My [facility] [employer] Additional Instructions tylenol for pain heat to the area may help rest return if worsening have blood pressure rechecked at latisha aguirre office--was high here recheck with latisha aguirre this week testing today was all ok
[2017-03-14 13:02] LABS: PROTHROMBIN TIME (PATIENT) 10.3 SECONDS (9.0-12.0)
[2017-03-14 13:08] LABS: ALT/SGPT 41 U/L (12-78); AST/SGOT 33 U/L (15-37); BLOOD UREA NITROGEN 30 mg/dl (7-18); BUN/CREATININE RATIO 31.7 (10-20); CALCIUM 9.7 mg/dl (8.5-10.1); CARBON DIOXIDE 27 mmol/L (21-32); CHLORIDE 103 mmol/L (98-107); CREATININE 0.95 mg/dl (0.60-1.20); GLUCOSE 104 mg/dl (70-99); POTASSIUM 3.6 mmol/L (3.5-5.1); SODIUM 137 mmol/L (136-145)
--- NOTE | 2017-03-14 13:09 | DIAGNOSTIC IMAGING REPORT ---
CHEST ONE VIEW PORTABLE CLINICAL HISTORY: Chest pain. COMPARISON STUDY: Chest radiograph July 20, 2016. FINDINGS: Lung volumes are normal. No pneumothorax or pleural effusion is present. There is no consolidation or evidence of pulmonary edema. Mild cardiomegaly is unchanged. IMPRESSION: 1. No acute cardiopulmonary findings. 2. Stable mild cardiomegaly. Electronically signed by: Nick Pierre M.D. 03/14/2017 1:07 PM Dictated Date/Time: 03/14/2017 1:07 PM
[2017-03-14 13:12] LABS: ALB/GLOB RATIO 1.1 (0.9-2); ALKALINE PHOSPHATASE 79 U/L (45-117)
[2017-03-14] MEDS ORDERED: TRIA75TA PO (13:34)
[2017-03-14] MEDS ORDERED: LSN5 PO (13:34)
[2017-03-14] MEDS ORDERED: MULT-506 PO (13:56)
[2017-03-14] MEDS ORDERED: CALC500C70 PO (13:56)
[2017-03-14] MEDS ORDERED: OPTIRAY 320 IV PRN (14:15)
--- NOTE | 2017-03-14 15:07 | DIAGNOSTIC IMAGING REPORT ---
(CHEST FOR PE) ANGIO WITH CLINICAL HISTORY: 66 years-old Female presenting with mid chest pain, shortness of breath, clinical concern for pulmonary embolus. TECHNIQUE: Multidetector CT angiography of the chest was performed after administration of intravenous contrast. 3-D volumetric and maximum intensity projection (MIP) images were subsequently reconstructed for review. IV contrast: 93 mL of Optiray 320. A dose lowering technique was used consistent with the principles of ALARA (as low as reasonably achievable). COMPARISON: None. CT DOSE (mGy.cm): The estimated cumulative dose is 380.80 mGy.cm. FINDINGS: Nurse Companion topogram: Unremarkable. Pulmonary vasculature: The study is adequate for assessment of the pulmonary vascular tree. No filling defect within the pulmonary arteries to suggest embolus. Main pulmonary artery not enlarged. No flattening of the interventricular septum. No intracardiac filling defect. Remaining chest: On soft tissue windows, normal thyroid and thoracic inlet. No axillary, supraclavicular, hilar, or mediastinal lymphadenopathy. Atherosclerosis of the aortic arch. Multichamber enlargement of heart. Minimal aortic valve and coronary artery calcification. No pericardial or pleural effusion. Upper abdomen normal. On lung windows, minimal dependent changes likely atelectasis. Airways patent. On bone windows, degenerative changes of the spine. IMPRESSION: 1. No evidence of pulmonary embolus. No acute intrathoracic pathology. 2. Minimal dependent atelectasis. 3. Cardiomegaly. Electronically signed by: Peng Phillip M.D. 03/14/2017 3:06 PM Dictated Date/Time: 03/14/2017 3:01 PM
[2017-03-14 16:32] VITALS: BP 176/85; PULSE 63; TEMP 37.5; O2SAT 95
== END 2017-03-14 16:33 | disposition home or self-care (01) ==
LOC: C.EDB 12:12 → C.EDC 16:33
DX: R07.9 Chest pain, unspecified (principal); I51.7 Cardiomegaly; Z87.891 Personal history of nicotine dependence; Z79.82 Long term (current) use of aspirin; Z79.899 Other long term (current) drug therapy; Z88.2 Allergy status to sulfonamides; Z88.6 Allergy status to analgesic agent; Z88.8 Allergy status to other drugs, medicaments and biological substances

== ENCOUNTER → 2017-06-28 | Outpatient (CLI) | payer OTHER ==
[~2017-06-28] MED LIST changes: +CALC500C70 PO; +DTR/5 PO; -LISI5TAB3 PO; +LSN5 PO; +MULT-506 PO; -OXYB5TAB74 PO; -TRIA25CA PO; +TRIA75TA PO
--- NOTE | 2017-06-28 16:02 | MAMMOGRAPHY REPORT ---
BILATERAL DIGITAL SCREENING MAMMOGRAM TOMOSYNTHESIS WITH CAD: 06/28/2017 TECHNIQUE: Breast tomosynthesis in addition to standard 2D mammography was performed. Current study was also evaluated with a Computer Aided Detection (CAD) system. COMPARISON: Comparison is made to exams dated: 06/27/2016 mammogram, 02/17/2016 mammogram, 07/15/2015 mammogram, 06/26/2015 mammogram, 06/25/2014 mammogram, and 06/24/2013 mammogram - [facility]. BREAST COMPOSITION: There are scattered areas of fibroglandular density in both breasts. FINDINGS: No suspicious masses, calcifications, or areas of architectural distortion are noted in ei ther breast. There has been no significant interval change compared to prior exams. There are stable postsurgical changes in the left breast from prior surgical excisions. Bilateral benign appearing c alcifications are not significantly changed. Circumscribed benign-appearing mass in the right 6:00 b reast is stable compared to multiple prior exams. IMPRESSION: ACR BI-RADS CATEGORY 2: BENIGN There is no mammographic evidence of malignancy. A 1 year screening mammogram is recommended. The pa tient will receive written notification of the results. Approximately 10% of breast cancers are not detected with mammography. A negative mammographic report should not delay biopsy if a clinically suggestive mass is present. Niesha Moore M.D. /:06/28/2017 12:38:00 Regional Program Manager: Gregoria HAHN)(M), [facility] letter sent: Normal 1/2 BI-RADS Code: ACR BI-RADS Category 2: Benign
== END | disposition home or self-care (01) ==
LOC: C.MAMM 11:06
PROVIDERS: ATTEND Internal Medicine
DX: Z12.31 Encounter for screening mammogram for malignant neoplasm of breast (principal)

== ENCOUNTER → 2017-08-02 | Outpatient (CLI) | payer OTHER ==
--- NOTE | 2017-08-02 14:25 | DIAGNOSTIC IMAGING REPORT ---
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 No acute fracture or dislocation. Small joint effusion. Peripheral vascular disease. IMPRESSION: 1. Small joint effusion without acute fracture or subluxation. 2. Degenerative changes as above. The above report was generated using voice recognition software. It may contain grammatical, syntax or spelling errors. Electronically signed by: Marito Quezada M.D. 08/02/2017 2:24 PM Dictated Date/Time: 08/02/2017 2:23 PM
--- NOTE | 2017-08-02 14:29 | DIAGNOSTIC IMAGING REPORT ---
L HIP UNILATERAL 1 VIEW CLINICAL HISTORY: HIP PAIN COMPARISON: None. DISCUSSION: Mild degenerative narrowing left and joint space. Minimal calcific trochanteric bursitis. No evidence for acetabular protrusion. Mild degenerative sclerosis of the left sacroiliac joint. There is no evidence for soft tissue swelling. IMPRESSION: Mild degenerative change. Mild calcific trochanteric bursitis. The above report was generated using voice recognition software. It may contain grammatical, syntax or spelling errors. Electronically signed by: Yazan Trivedi M.D. 08/02/2017 2:27 PM Dictated Date/Time: 08/02/2017 2:21 PM
== END | disposition home or self-care (01) ==
LOC: C.RAD 13:33
PROVIDERS: ATTEND Internal Medicine
DX: M25.562 Pain in left knee (principal); M25.552 Pain in left hip

== ENCOUNTER → 2018-02-26 | Outpatient (CLI) | payer OTHER ==
[~2018-02-26] MED LIST changes: +LISI-730 PO; -LSN5 PO
[2018-02-26 15:40] LABS: BASO % 0.7 %; BASO ABS # 0.04 K/uL (0-0.2); EOS % 4.1 %; EOS ABS # 0.25 K/uL (0-0.5); HEMATOCRIT 38.8 % (37-47); IG# 0.01 K/uL (0.00-0.02); LYMPH % 32.3 %; LYMPH ABS # 1.95 K/uL (1.2-3.4); MEAN CELL VOLUME 89.8 fL (80-100); MEAN CORPUSCULAR HEMOGLOBIN 30.1 pg (25-34); MEAN CORPUSCULAR HGB CONC 33.5 g/dl (32-36); MEAN PLATELET VOLUME 10.2 fL (7.4-10.4); MONO % 6.6 %; NEUT % 56.1 %; NEUT ABS # 3.39 K/uL (1.4-6.5); PLATELET COUNT 216 K/uL (130-400); RED CELL DISTRIBUTION WIDTH CV 13.4 % (11.5-14.5); RED CELL DISTRIBUTION WIDTH SD 43.9 fL (36.4-46.3); WHITE BLOOD COUNT 6.04 K/uL (4.8-10.8)
[2018-02-26 15:48] LABS: BLOOD UREA NITROGEN 25 mg/dl (7-18); CALCIUM 9.1 mg/dl (8.5-10.1); CARBON DIOXIDE 24 mmol/L (21-32); CREATININE 0.93 mg/dl (0.60-1.20); GLUCOSE 93 mg/dl (70-99); POTASSIUM 3.8 mmol/L (3.5-5.1); SODIUM 136 mmol/L (136-145)
--- NOTE | 2018-02-26 15:49 | DIAGNOSTIC IMAGING REPORT ---
CHEST 2 VIEWS ROUTINE CLINICAL HISTORY: 67 years-old Female presenting with preoperative assessment. TECHNIQUE: PA and lateral views of the chest were obtained. COMPARISON: 03/14/2017. FINDINGS: Atherosclerosis of the aortic arch. Cardiac silhouette normal in size. Lungs and pleural spaces clear. Osseous structures normal. Upper abdomen normal. IMPRESSION: 1. No acute cardiopulmonary disease. Electronically signed by: Peng Phillip M.D. 02/26/2018 3:48 PM Dictated Date/Time: 02/26/2018 3:47 PM
[2018-02-26 15:56] LABS: PTT PATIENT 24.4 SECONDS (21.0-31.0)
== END | disposition home or self-care (01) ==
LOC: C.CPL 14:42
PROVIDERS: ATTEND Orthopaedic Surgery
DX: Z01.810 Encounter for preprocedural cardiovascular examination (principal); Z01.812 Encounter for preprocedural laboratory examination

== ENCOUNTER 2021-02-16 04:51 | Inpatient (IN) ==
[2021-02-16] MEDS ORDERED: fentaNYL citrate 100 MCG/2 ML VIAL IV STA ×2 (05:07→09:01)
[2021-02-16] MEDS ORDERED: SODIUM CHLORIDE 0.9% 1000ML 1,000 ML IV ONE (05:07)
--- NOTE | 2021-02-16 05:10 | Emergency Department Note ---
Impression & Plan Sigmoid diverticulitis, Failure of outpatient treatment, Acute arthritis, Rigors ED Provider Note Name: BONNY PRINGLE Age: 70 Sex: F Arrives Via: Ambulance Informant: Patient ED Provider: Harris Robbins MD Chief Complaint: Chills Impression: See Above Medical Decision Makin yr old pleasant female with history of GERD, HTN, HLP, Bladder dysfunction, Ankylosing Spondylitis arrives with worsening chills/rigors overnight. Diarrhea for the previous 3 weeks with minimal improvement on flagyl. TTP left abdomen on exam without peritonitis. Labs with normal lactate, mild wbc elevation and moderate esr/crp bumps. With abdominal discomfort felt CT imaging indicated. She was found to have acute sigmoid diverticulitis on CT. Given rigors, already had a week of treatment, and now adding in severe arthritic flare, likely reactive, hospitalization seems warranted. She does not have perforation nor abscess on CT. She is not currently septic, though with rigors earlier I am concerned possible bacteremia thus cultures initially. Start with IV zosyn as already on flagyl. Hospitalist consulted for further management. Prior Medical Record and Triage/Nursing Notes reviewed by Me Additional history obtained from chart Differentials:Viral syndrome, otitis, pharyngitis, pneumonia, influenza, meningitis, urinary tract infection, sepsis, bacteremia, as well as other pathologies. Vital Signs: reviewed and remarkable for no significant abnormalities Interventions: saline lock, fentanyl IV, nss bolus 1 L IV, zosyn 4.5gm iv Labs:Reviewed and remarkable for no significant abnormalities Imaging:Radiologist interpretation reviewed by me: CT a/p w con: sigmoid diverticulitis EKG:Per My Interpretation: Indication Chills: NSR 87 bpm, qtc 411. No Ectopy. No Ischemia. Compared to EKG 02/26/18, no significant changes. Cardiac/Tele Monitoring: Cardiac Monitoring: An Order was placed for continuous cardiac monitoring. The monitor shows a rate of 80 with a normal sinus rhythm. Consults:Dr Devin PEREA Hospitalist Plan: Disposition:Hospitalization. Condition: Good History of Present Illness:70 yr old female arrives for evaluation of weakness. Patient notes that for the previous 3 weeks she has been dealing with diarrheal issues. Watery, sometimes quite frequent with abdominal cramping. Was worse last week though improving the last few days. She has been on Flagyl BID for the previous week for treatment of the diarrhea. Notes dark urine the last few days. Today with rapidly worsening weakness, lightheadedness, nausea, fatigue, chills. States she is having episodes of entire body shaking the last few hours on and off. For the previous several days she noticed that her arthritis in fingers has rapidly worsened with red swollen knuckles, far beyond baseline. No nausea, vomiting, syncope, cp, sob, cough, headache, runny nose, sore throat, neck pain, rashes, leg swelling, nor other symptoms. Notes some mild diffuse abdominal cramping, but her joints in hands/feet are much more painful. ROS: See above HPI for pertinent positives & negatives. A total of 10 systems reviewed and were otherwise negative. Past Medical History:GERD, HTN, HLP, Bladder dysfunction, Ankylosing Spondylitis Past Surgical History:Left Knee Replacement Family History:Non contributory Social History:retired, no drugs/tobacco, rare ETOH Home Medications:See Below Allergies:ASA and NSIADs, Sulfa, Tetracycline Vitals:Blood Pressure: 117/93, Pulse 86, RR 18, T 37.5C, O2 96% on RA Physical Exam: GENERAL: Patient is unwell appearing and in mild distress. Dehydrated EYES: No scleral icterus, unremarkable pupils ENT: Mucous membranes moist, no nasal congestion. NECK: No masses appreciated, nomeningismus, trachea is midline. RESPIRATORY: No dyspnea. Clear to auscultation and equal bilaterally. No wheeze, no rhonchi. CARDIOVASCULAR: Regular rate and rhythm.No murmurs, rubs, gallops appreciated. GASTROINTESTINAL: Vague diffuse TTP worse along left abdomen, otherwise abdomen soft, no peritonitis.Bowel sounds positive.No masses appreciated. BACK: No midline tenderness, no CVA tenderness EXTREMITIES: Diffuse small joint swelling and erythema in fingers, unable to close hand, mild pain with right ROM. Otherwise normal motion all extremities, no cyanosis, no edema. NEUROLOGIC: Alert and oriented, no acute motor or sensory deficits, no focal weakness, cranial nerves grossly intact. SKIN: No rash, no jaundice, no diaphoresis. PSYCH: Appropriate GCS: 15 ED Course: Times/Reassessments: Improvement with fluids and fentanyl Harris Robbins MD Past Med/Surg History Medical History Ankylosing spondylitis Arrhythmia HX OF TACHYCARDIA GERD (gastroesophageal reflux disease) History of palpitations Hyperlipemia Hypertension Osteoarthritis Surgical History H/O tubal ligation Hx of cataract surgery RIGHT AND LEFT Hx of colonoscopy Hx of hysterectomy Hx of lumpectomy LEFT BREAST Hx of varicose vein ligation RLE Social History Smoking Status: Never smoker Second Hand Exposure: No; Hx Alcohol Use: Yes Alcohol type: wine Hx Substance Use: No Preferred Language: Maltese Communication Ability: Effective Visual Impairment: No Limitations Weight Clerk Required: No Beliefs That Will Affect Care: None Current Living Situation: Spouse Other Information That Helps Us Care for You: No Feels Safe at Home: Yes Safety Concerns: Feels Safe At This Time Assistive Devices: Glasses and Walker Allergies Allergies Allergy/AdvReac Type Severity Reaction Status Date / Time adhesive Allergy Unknown BLISTERS Verified 02/16/21 07:10 aspirin Allergy Unknown HIVES Verified 02/16/21 07:10 celecoxib Allergy Unknown HIVES Verified 02/16/21 07:10 ibuprofen Allergy Unknown HIVES Verified 02/16/21 07:10 naproxen Allergy Unknown HIVES Verified 02/16/21 07:10 piroxicam Allergy Unknown HIVES Verified 02/16/21 07:10 Sulfa (Sulfonamide Allergy Unknown VOMITING/HI Verified 02/16/21 07:10 Antibiotics) VES tetracycline Allergy Unknown HIVES?, Verified 02/16/21 07:10 ANXIETY Home Meds Home Medications Medication Instructions Recorded Confirmed lisinopril 5 mg tablet 5 mg PO HS #0 03/14/17 02/16/21 multivitamin 1 tab PO QAM #0 tab 03/14/17 02/16/21 atorvastatin 80 mg tablet 80 mg PO QPM #0 tab 02/22/18 02/16/21 diclofenac sodium 75 mg 75 mg PO BID #0 tab 02/22/18 02/16/21 tablet,delayed release metoprolol tartrate 50 mg tablet 75 mg PO BID #0 tab 02/22/18 02/16/21 oxybutynin chloride 5 mg tablet 5 mg PO QPM #0 tab 02/22/18 02/16/21 pantoprazole 40 mg tablet,delayed 40 mg PO QAM #30 tab 02/22/18 02/16/21 release calcium citrate 250 mg 1 tab PO DAILY 02/16/21 02/16/21 calcium-vitamin D3 5 mcg (200 unit) tablet furosemide 40 mg tablet 40 mg PO DAILY 02/16/21 02/16/21 metronidazole 500 mg tablet 500 mg PO TID 02/16/21 02/16/21 spironolactone 25 mg tablet 25 mg PO QAM 02/16/21 02/16/21 Results & Data (ED) Vital Signs Vital Signs - 24 hr 02/16/21 04:56 02/16/21 04:59 02/16/21 05:00 Temperature 37.5 C Temperature Source Oral Pulse Rate 88 86 86 Pulse Rate from SpO2 Sensor 87 87 Respiratory Rate 14 18 18 Respiratory Effort / Characteristics Non-Labored Respiratory Depth Normal Blood Pressure 117/93 117/93 126/61 Blood Pressure Mean 101 101 82 Pulse Oximetry 98 96 95 Oxygen Delivery Method Room Air Room Air Room Air Sepsis Recent Fever Within 48 Hours No Sepsis New/Unexplained Change in Mental Status N/A Sepsis Action Taken by Nursing No Action Required 02/16/21 05:30 02/16/21 06:01 02/16/21 06:37 Temperature Temperature Source Pulse Rate 81 83 88 Pulse Rate from SpO2 Sensor 82 83 87 Respiratory Rate 17 14 15 Respiratory Effort / Characteristics Respiratory Depth Blood Pressure 118/49 L 130/72 113/93 Blood Pressure Mean 72 91 99 Pulse Oximetry 95 98 97 Oxygen Delivery Method Room Air Room Air Room Air Sepsis Recent Fever Within 48 Hours Sepsis New/Unexplained Change in Mental Status Sepsis Action Taken by Nursing 02/16/21 07:00 02/16/21 07:30 02/16/21 08:02 Temperature Temperature Source Pulse Rate 81 78 81 Pulse Rate from SpO2 Sensor 82 78 Respiratory Rate 14 9 L 8 L Respiratory Effort / Characteristics Respiratory Depth Blood Pressure 110/56 L 109/53 L Blood Pressure Mean 74 71 Pulse Oximetry 97 94 Oxygen Delivery Method Sepsis Recent Fever Within 48 Hours Sepsis New/Unexplained Change in Mental Status Sepsis Action Taken by Nursing 02/16/21 08:30 02/16/21 09:00 02/16/21 09:31 Temperature Temperature Source Pulse Rate 80 83 90 Pulse Rate from SpO2 Sensor Respiratory Rate 11 L 17 12 Respiratory Effort / Characteristics Respiratory Depth Blood Pressure 124/60 Blood Pressure Mean 81 Pulse Oximetry Oxygen Delivery Method Sepsis Recent Fever Within 48 Hours Sepsis New/Unexplained Change in Mental Status Sepsis Action Taken by Nursing Laboratory Data Result diagrams: 02/16/21 05:10 08/03/21 05:10 Lab Results 02/16/21 02/16/21 02/16/21 Range/Units 05:10 05:10 05:10 WBC 12.79 H (4.8-10.8) K/uL RBC 3.39 L (4.2-5.4) M/uL Hgb 10.6 L (12.0-16.0) g/dL Hct 31.6 L (37-47) % MCV 93.2 (80-100) fL MCH 31.3 (25-34) pg MCHC 33.5 (32-36) g/dL RDW Std Deviation 44.7 (36.4-46.3) fL RDW Coeff of [place] 13.2 (11.5-14.5) % Plt Count 327 (130-400) K/uL MPV 9.1 (7.4-10.4) fL Immature Gran % (Auto) 0.7 % Neut % (Auto) 81.6 % Lymph % (Auto) 9.3 % [place] % (Auto) 6.6 % Eos % (Auto) 1.6 % Baso % (Auto) 0.2 % Neut # (Auto) 10.44 H (1.4-6.5) K/uL Lymph # (Auto) 1.19 L (1.2-3.4) K/uL [place] # (Auto) 0.84 H (0.11-0.59) K/uL Eos # (Auto) 0.20 (0-0.5) K/uL Baso # (Auto) 0.03 (0-0.2) K/uL Immature Gran # (Auto) 0.09 H (0.00-0.02) K/uL ESR 42 H (0-30) mm/hr Sodium 132 L (136-145) mmol/L Potassium 4.0 (3.5-5.1) mmol/L Chloride 101 (98-107) mmol/L Carbon Dioxide 24 (21-32) mmol/L Anion Gap 7.0 (3-11) BUN 49 H (7-18) mg/dl Creatinine 1.64 H (0.6-1.2) mg/dl Est Cr Clr Drug Dosing 31.3 ml/min Est GFR ( Amer) 35.8 ml/min Est GFR (Non-Af Amer) 30.9 ml/min BUN/Creatinine Ratio 30.0 H (10-20) Glucose 115 H (70-99) mg/dl Lactate (0.4-2.0) mmol/L Calcium 9.6 (8.5-10.1) mg/dl Magnesium 1.7 L (1.8-2.4) mg/dl Total Bilirubin 0.5 (0.2-1) mg/dl Direct Bilirubin < 0.1 (0-0.2) mg/dl AST 54 H (15-37) U/L ALT 71 (12-78) U/L Alkaline Phosphatase 82 (45-117) U/L Troponin I < 0.015 (0-0.045) ng/ml C-Reactive Protein 2.54 H (0-0.29) mg/dl Total Protein 7.4 (6.4-8.2) gm/dl Albumin 3.5 (3.4-5.0) gm/dl Lipase 224 (73-393) U/L Procalcitonin (0-0.5) ng/ml Urine Color Urine Appearance (Clear) Urine pH (4.5-7.5) Ur Specific [place] (1.000-1.030) Urine Protein (Negative) Urine Glucose (UA) (Negative) Urine Ketones (Negative) Urine Blood (Negative) Urine Nitrite (Negative) Urine Bilirubin (Negative) Urine Urobilinogen (Negative) Ur Leukocyte Esterase (Negative) COVID-19 Eval Order SARS-CoV-2 (PCR) (Negative) 02/16/21 02/16/21 02/16/21 Range/Units 05:10 05:10 06:33 WBC (4.8-10.8) K/uL RBC (4.2-5.4) M/uL Hgb (12.0-16.0) g/dL Hct (37-47) % MCV (80-100) fL MCH (25-34) pg MCHC (32-36) g/dL RDW Std Deviation (36.4-46.3) fL RDW Coeff of Neville (11.5-14.5) % Plt Count (130-400) K/uL MPV (7.4-10.4) fL Immature Gran % (Auto) % Neut % (Auto) % Lymph % (Auto) % [place] % (Auto) % Eos % (Auto) % Baso % (Auto) % Neut # (Auto) (1.4-6.5) K/uL Lymph # (Auto) (1.2-3.4) K/uL [place] # (Auto) (0.11-0.59) K/uL Eos # (Auto) (0-0.5) K/uL Baso # (Auto) (0-0.2) K/uL Immature Gran # (Auto) (0.00-0.02) K/uL ESR (0-30) mm/hr Sodium (136-145) mmol/L Potassium (3.5-5.1) mmol/L Chloride (98-107) mmol/L Carbon Dioxide (21-32) mmol/L Anion Gap (3-11) BUN (7-18) mg/dl Creatinine (0.6-1.2) mg/dl Est Cr Clr Drug Dosing ml/min Est GFR ( Amer) ml/min Est GFR (Non-Af Amer) ml/min BUN/Creatinine Ratio (10-20) Glucose (70-99) mg/dl Lactate 1.4 (0.4-2.0) mmol/L Calcium (8.5-10.1) mg/dl Magnesium (1.8-2.4) mg/dl Total Bilirubin (0.2-1) mg/dl Direct Bilirubin (0-0.2) mg/dl AST (15-37) U/L ALT (12-78) U/L Alkaline Phosphatase (45-117) U/L Troponin I (0-0.045) ng/ml C-Reactive Protein (0-0.29) mg/dl Total Protein (6.4-8.2) gm/dl Albumin (3.4-5.0) gm/dl Lipase (73-393) U/L Procalcitonin < 0.05 (0-0.5) ng/ml Urine Color Yellow Urine Appearance Clear (Clear) Urine pH 6.0 (4.5-7.5) Ur Specific [place] 1.008 (1.000-1.030) Urine Protein Negative (Negative) Urine Glucose (UA) Negative (Negative) Urine Ketones Negative (Negative) Urine Blood Negative (Negative) Urine Nitrite Negative (Negative) Urine Bilirubin Negative (Negative) Urine Urobilinogen Negative (Negative) Ur Leukocyte Esterase Negative (Negative) COVID-19 Eval Order SARS-CoV-2 (PCR) (Negative) 02/16/21 02/16/21 Range/Units 09:23 09:23 WBC (4.8-10.8) K/uL RBC (4.2-5.4) M/uL Hgb (12.0-16.0) g/dL Hct (37-47) % MCV (80-100) fL MCH (25-34) pg MCHC (32-36) g/dL RDW Std Deviation (36.4-46.3) fL RDW Coeff of [place] (11.5-14.5) % Plt Count (130-400) K/uL MPV (7.4-10.4) fL Immature Gran % (Auto) % Neut % (Auto) % Lymph % (Auto) % [place] % (Auto) % Eos % (Auto) % Baso % (Auto) % Neut # (Auto) (1.4-6.5) K/uL Lymph # (Auto) (1.2-3.4) K/uL [place] # (Auto) (0.11-0.59) K/uL Eos # (Auto) (0-0.5) K/uL Baso # (Auto) (0-0.2) K/uL Immature Gran # (Auto) (0.00-0.02) K/uL ESR (0-30) mm/hr Sodium (136-145) mmol/L Potassium (3.5-5.1) mmol/L Chloride (98-107) mmol/L Carbon Dioxide (21-32) mmol/L Anion Gap (3-11) BUN (7-18) mg/dl Creatinine (0.6-1.2) mg/dl Est Cr Clr Drug Dosing ml/min Est GFR ( Amer) ml/min Est GFR (Non-Af Amer) ml/min BUN/Creatinine Ratio (10-20) Glucose (70-99) mg/dl Lactate (0.4-2.0) mmol/L Calcium (8.5-10.1) mg/dl Magnesium (1.8-2.4) mg/dl Total Bilirubin (0.2-1) mg/dl Direct Bilirubin (0-0.2) mg/dl AST (15-37) U/L ALT (12-78) U/L Alkaline Phosphatase (45-117) U/L Troponin I (0-0.045) ng/ml C-Reactive Protein (0-0.29) mg/dl Total Protein (6.4-8.2) gm/dl Albumin (3.4-5.0) gm/dl Lipase (73-393) U/L Procalcitonin (0-0.5) ng/ml Urine Color Urine Appearance (Clear) Urine pH (4.5-7.5) Ur Specific [place] (1.000-1.030) Urine Protein (Negative) Urine Glucose (UA) (Negative) Urine Ketones (Negative) Urine Blood (Negative) Urine Nitrite (Negative) Urine Bilirubin (Negative) Urine Urobilinogen (Negative) Ur Leukocyte Esterase (Negative) COVID-19 Eval Order Covid19 at [facility] SARS-CoV-2 (PCR) NEGATIVE (Negative) Administered Medications Atorvastatin Calcium (Atorvastatin 40 Mg Tab) 80 mg PO QPM NASH Stop: 03/18/21 20:59 Last Admin: 02/16/21 21:36 Dose: 80 mg Documented by: [id number] Diclofenac Sodium (Diclofenac Sodium 75 Mg Tabcr) 75 mg PO BID NASH Stop: 03/18/21 20:59 Last Admin: 02/16/21 21:36 Dose: 75 mg Documented by: [id number] Enoxaparin Sodium (Enoxaparin Inj 40 Mg/0.4 Ml Syr) 40 mg SQ Q24H NASH Stop: 03/18/21 18:33 Last Admin: 02/16/21 21:35 Dose: 40 mg Documented by: [id number] Sodium Chloride (Nss 1000ml) 1,000 mls @ 125 mls/hr IV .Q8H NASH Stop: 03/18/21 08:59 Last Admin: 02/16/21 19:45 Dose: 125 mls/hr Documented by: [id number] Infusion: 02/16/21 17:16 Dose: 0 mls/hr Documented by: [id number] Admin: 02/16/21 09:15 Dose: 125 mls/hr Documented by: [id number] Metoprolol Tartrate (Metoprolol Tartrate 25 Mg Tab) 75 mg PO BID NASH Stop: 03/18/21 20:59 Last Admin: 02/16/21 21:39 Dose: 75 mg Documented by: [id number] Oxybutynin Chloride (Oxybutynin Chloride 5 Mg Tab) 5 mg PO QPM NASH Stop: 03/18/21 20:59 Last Admin: 02/16/21 21:36 Dose: 5 mg Documented by: [id number] Discontinued Medications Fentanyl Citrate (Fentanyl Citrate 100 Mcg/2 Ml Vial) 25 mcg IV NOW STA Stop: 02/16/21 05:08 Last Admin: 02/16/21 05:26 Dose: 25 mcg Documented by: [id number] Fentanyl Citrate (Fentanyl Citrate 100 Mcg/2 Ml Vial) 25 mcg IV NOW STA Stop: 02/16/21 09:02 Last Admin: 02/16/21 09:15 Dose: 25 mcg Documented by: [id number] Sodium Chloride (Nss 1000ml) 1,000 mls @ 999 mls/hr IV .Q1H1M ONE Stop: 02/16/21 06:07 Last Infusion: 02/16/21 06:29 Dose: 0 mls/hr Documented by: [id number] Admin: 02/16/21 05:28 Dose: 999 mls/hr Documented by: [id number] Piperacillin Sod/Tazobactam Sod (Zosyn) 4.5 gm in 120 mls @ 240 mls/hr IV NOW ONE Stop: 02/16/21 09:12 Last Infusion: 02/16/21 10:25 Dose: 0 mls/hr Documented by: [id number] Admin: 02/16/21 09:15 Dose: 240 mls/hr Documented by: [id number] Piperacillin Sod/Tazobactam (Sod 3.375 gm/ Dextrose) 115 mls @ 230 mls/hr IV NOW ONE; Protocol Stop: 02/16/21 19:44 Last Infusion: 02/16/21 20:20 Dose: 0 mls/hr Documented by: [id number] Admin: 02/16/21 19:46 Dose: 230 mls/hr Documented by: [id number] Ioversol (Optiray 320 100ml) 94 ml IV ONCE ONE Stop: 02/16/21 07:54 Last Admin: 02/16/21 07:53 Dose: 94 ml Documented by: [id number] Imaging Data Radiologist's Impression: Abdomen/Pelvis CT 02/16/21 06:[address] WITH IV CONTRAST CT DOSE: 652.12 mGy.cm HISTORY: Acute generalized abdominal pain with diarrhea persistent diarrhea, abdominal pain, tremors TECHNIQUE: Multiaxial CT images of the abdomen and pelvis were performed following the IV administration of 94 cc of Optiray, A dose lowering technique was utilized adhering to the principles of ALARA. COMPARISON STUDY: CT abdomen and pelvis 03/18/2009 FINDINGS: The imaged inferior cardiac chambers are upper limits of normal in size. Aortic annular and coronary artery calcifications. Clear lung bases. No pn eumatosis or pneumoperitoneum. 6 mm inferior splenic hypodensity on image 124 is indeterminate however likely benign. The spleen measures within the upper limits of normal in size. Unremarkable pancreas, adrenal glands and mildly distended gallbladder. The common bile duct measures 9 mm, likely incidental. There are a few scattered hypodensities of the liver suggestive of cysts measuring up to 1.3 cm within the inferior right hepatic lobe. Mild hepatomegaly. Patency of the hepatic and portal veins. Unremarkable kidneys. No hydronephrosis. Unremarkable urinary bladder. Pelvic floor relaxation with hysterectomy. Atherosclerosis of the aorta. No adenopathy. No bowel obstruction. Colonic diverticulosis. There is mild to moderate circumferential wall thickening of the mid sigmoid colon with pericolonic inflammatory stranding and thickening of the adjacent peritoneal reflection. No abscess. The visualized appendix is unremarkable. Tiny fat filled periumbilical hernia. Degenerative changes of the spine, pelvis and hips. No acute fracture. Grade 2 anterolisthesis L5 on S1 with severe facet arthrosis. Lumbar levoscoliosis. IMPRESSION: 1. Acute sigmoid diverticulitis. No abscess or perforation. 2. No bowel obstruction. 3. Additional findings as above. ACT 112: Negative or not required by law. The above report was generated using voice recognition software. It may contain grammatical, syntax or spelling errors. Electronically signed by: Bahman Quezada M.D. 02/16/2021 8:40 AM Discharge Plan Visit Data Chief Complaint: Diarrhea Stated Complaint: DIARRHEA/BODY ACHES/SHAKES ED Provider: Harris Robbins Discharge Problem: Sigmoid diverticulitis, Failure of outpatient treatment, Acute arthritis, Rigors Patient Disposition: Admitted As Inpatient Discharge Instructions Interventions: ED Discharge Assessment Last Done: 02/16/21 18:23
[2021-02-16 05:29] LABS: Basophils # (auto) 0.03 K/uL (0-0.2); Basophils % (auto) 0.2 %; Eosinophils % (auto) 1.6 %; Hematocrit (blood only) 31.6 % (37-47); Hemoglobin 10.6 g/dL (12.0-16.0); Immature Granulocytes # (auto) 0.09 K/uL (0.00-0.02); Immature Granulocytes % (auto) 0.7 %; Lymphocytes # (auto) 1.19 K/uL (1.2-3.4); Lymphocytes % (auto) 9.3 %; Mean Corpuscular Hemoglobin 31.3 pg (25-34); Mean Corpuscular Hgb Conc 33.5 g/dL (32-36); Mean Corpuscular Volume 93.2 fL (80-100); Mean Platelet Volume 9.1 fL (7.4-10.4); Monocytes # (auto) 0.84 K/uL (0.11-0.59); Monocytes % (auto) 6.6 %; Neutrophils # (auto) 10.44 K/uL (1.4-6.5); Neutrophils % (auto) 81.6 %; Platelet Count 327 K/uL (130-400); RDW Coefficient of Variation 13.2 % (11.5-14.5); RDW Standard Deviation 44.7 fL (36.4-46.3); Red Blood Count 3.39 M/uL (4.2-5.4); White Blood Count 12.79 K/uL (4.8-10.8)
[2021-02-16 05:51] LABS: Alanine Aminotransferase 71 U/L (12-78); Albumin Level 3.5 gm/dl (3.4-5.0); Aspartate Aminotransferase 54 U/L (15-37); Blood Urea Nitrogen 49 mg/dl (7-18); C Reactive Protein 2.54 mg/dl (0-0.29); Calcium 9.6 mg/dl (8.5-10.1); Carbon Dioxide 24 mmol/L (21-32); Chloride 101 mmol/L (98-107); Creatinine Clr Calc Pharmacy 31.3 ml/min; Est GFR (African American) 35.8 ml/min; Est GFR (Non-African American) 30.9 ml/min; Glucose 115 mg/dl (70-99); Lipase 224 U/L (73-393); Magnesium 1.7 mg/dl (1.8-2.4); Sodium 132 mmol/L (136-145)
[2021-02-16 05:54] LABS: Alkaline Phosphatase 82 U/L (45-117); Bilirubin Direct < 0.1 mg/dl (0-0.2); Bilirubin,Total 0.5 mg/dl (0.2-1); Total Protein 7.4 gm/dl (6.4-8.2); Troponin I < 0.015 ng/ml (0-0.045)
[2021-02-16 06:49] LABS: Appearance Urine Clear (Clear); Bilirubin Urine Negative (Negative); Blood Urine Negative (Negative); Color Urine Yellow; Glucose Urine UA Negative (Negative); Ketones Urine Negative (Negative); Leukocyte Esterase Urine Negative (Negative); Nitrite Urine Negative (Negative); Protein Urine Negative (Negative); Specific Gravity Urine 1.008 (1.000-1.030); Urobilinogen Urine Negative (Negative)
[2021-02-16] MEDS ORDERED: OPTIRAY 320 100ml IV ONE (07:53)
--- NOTE | 2021-02-16 08:42 | CT Scan Report ---
ABDOMEN AND PELVIS CT WITH IV CONTRAST CT DOSE: 652.12 mGy.cm HISTORY: Acute generalized abdominal pain with diarrhea persistent diarrhea, abdominal pain, tremors TECHNIQUE: Multiaxial CT images of the abdomen and pelvis were performed following the IV administrat ion of 94 cc of Optiray, A dose lowering technique was utilized adhering to the principles of ALARA. COMPARISON STUDY: CT abdomen and pelvis 03/18/2009 FINDINGS: The imaged inferior cardiac chambers are upper limits of normal in size. Aortic annular and coronary artery calcifications. Clear lung bases. No pneumatosis or pneumoperitoneum. 6 mm inferior splenic hypodensity on image 124 is indeterminate however likely benign. The spleen measures within t he upper limits of normal in size. Unremarkable pancreas, adrenal glands and mildly distended gallbla dder. The common bile duct measures 9 mm, likely incidental. There are a few scattered hypodensities of the liver suggestive of cysts measuring up to 1.3 cm within the inferior right hepatic lobe. Mild hepatomegaly. Patency of the hepatic and portal veins. Unremarkable kidneys. No hydronephrosis. Unremarkable urinary bladder. Pelvic floor relaxation with h ysterectomy. Atherosclerosis of the aorta. No adenopathy. No bowel obstruction. Colonic diverticulosis. There is mild to moderate circumferential wall thickeni ng of the mid sigmoid colon with pericolonic inflammatory stranding and thickening of the adjacent pe ritoneal reflection. No abscess. The visualized appendix is unremarkable. Tiny fat filled periumbilic al hernia. Degenerative changes of the spine, pelvis and hips. No acute fracture. Grade 2 anterolisth esis L5 on S1 with severe facet arthrosis. Lumbar levoscoliosis. IMPRESSION: 1. Acute sigmoid diverticulitis. No abscess or perforation. 2. No bowel obstruction. 3. Additional findings as above. ACT 112: Negative or not required by law. The above report was generated using voice recognition software. It may contain grammatical, syntax o r spelling errors. Electronically signed by: Bahman Quezada M.D. 02/16/2021 8:40 AM
[2021-02-16] MEDS ORDERED: PIPERACILL/TAZOBAC CONSULT ACTIVE PRN ×2 (08:43→18:34)
[2021-02-16] MEDS ORDERED: PIPERACILLIN/TAZOBACTAM 4.5 GM/120 ML BAG IV ONE (08:43)
[2021-02-16] MEDS: SODIUM CHLORIDE 0.9% 1000ML 1,000 ML IV SCH ×2 (09:15→19:45)
--- NOTE | 2021-02-16 15:04 | History & Physical Report ---
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 She says her PCP has tested her for C diff and stool cultures, negative testing. She was placed on Flagyl with no improvement. Tested for COVID, negative. She says she moves her bowels several times a day. She has been trying to keep up with oral intake to replace what she loses. Admits to lower abdominal pain, most pronounced in center of abdomen. Pain is bad when she has to move her bowels, relieved after BM. No blood or melena seen, stools are orange/mucous color. No nausea or vomiting. In the ED CT abd/pelvis shows acute diverticulitis of sigmoid colon. She says she had diverticulitis many years ago, she is careful about what she eats, has been okay for many years. Recently, over past week, her finger joints have become swollen, very tender. Never had this issue before. She has h/o ankylosing spondylitis, diagnosed with HLA B27 mutation. 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 Allergies Allergy/AdvReac Type Severity Reaction Status Date / Time adhesive Allergy Unknown BLISTERS Verified 02/16/21 07:10 aspirin Allergy Unknown HIVES Verified 02/16/21 07:10 celecoxib Allergy Unknown HIVES Verified 02/16/21 07:10 ibuprofen Allergy Unknown HIVES Verified 02/16/21 07:10 naproxen Allergy Unknown HIVES Verified 02/16/21 07:10 piroxicam Allergy Unknown HIVES Verified 02/16/21 07:10 Sulfa (Sulfonamide Allergy Unknown VOMITING/HI Verified 02/16/21 07:10 Antibiotics) VES tetracycline Allergy Unknown HIVES?, Verified 02/16/21 07:10 ANXIETY Home Medications Medication Instructions Recorded Confirmed Type lisinopril 5 mg tablet 5 mg PO HS #0 03/14/17 02/16/21 History multivitamin 1 tab PO QAM #0 tab 03/14/17 02/16/21 History atorvastatin 80 mg tablet 80 mg PO QPM #0 tab 02/22/18 02/16/21 History diclofenac sodium 75 mg 75 mg PO BID #0 tab 02/22/18 02/16/21 History tablet,delayed release metoprolol tartrate 50 mg tablet 75 mg PO BID #0 tab 02/22/18 02/16/21 History oxybutynin chloride 5 mg tablet 5 mg PO QPM #0 tab 02/22/18 02/16/21 History pantoprazole 40 mg tablet,delayed 40 mg PO QAM #30 tab 02/22/18 02/16/21 History release calcium citrate 250 mg 1 tab PO DAILY 02/16/21 02/16/21 History calcium-vitamin D3 5 mcg (200 unit) tablet furosemide 40 mg tablet 40 mg PO DAILY 02/16/21 02/16/21 History metronidazole 500 mg tablet 500 mg PO TID 02/16/21 02/16/21 History spironolactone 25 mg tablet 25 mg PO QAM 02/16/21 02/16/21 History Past Med/Surg History Medical History Ankylosing spondylitis Arrhythmia HX OF TACHYCARDIA GERD (gastroesophageal reflux disease) History of palpitations Hyperlipemia Hypertension Osteoarthritis Surgical History H/O tubal ligation Hx of cataract surgery RIGHT AND LEFT Hx of colonoscopy Hx of hysterectomy Hx of lumpectomy LEFT BREAST Hx of varicose vein ligation RLE Social History Smoking Status: Never smoker Second Hand Exposure: No; Hx Alcohol Use: Yes Alcohol type: wine Hx Substance Use: No Preferred Language: [place] Communication Ability: Effective Visual Impairment: No Limitations Bell Ringer Required: No Beliefs That Will Affect Care: None Current Living Situation: Spouse Other Information That Helps Us Care for You: No Feels Safe at Home: Yes Safety Concerns: Feels Safe At This Time Assistive Devices: None Review of Systems Review of Systems: All systems reviewed & are unremarkable except as noted in HPI & below Physical Exam Constitutional: well developed, well nourished and + obese; no acute distress Eyes: PERRL, conjunctivae normal, anicteric sclerae ENMT: external ear and nose normal, oropharynx normal Neck: trachea midline, no thyromegaly Respiratory: normal respiratory effort, lungs clear to auscultation Cardiovascular: RRR, no murmur, no edema Gastrointestinal (Abdomen): Inspection/Auscultation: abdomen normal to inspection and normal bowel sounds; abdomen not distended Percussion/Palpation: + abdomen tender (lower, central abdomen), abdomen soft and normal to percussion; no guarding and abdomen not rigid Musculoskeletal: Head/Neck/Chest: normocephalic, head atraumatic and neck supple Spine: no thoracic spinal tenderness and no lumbar spinal tenderness Extremities: + extremities abnormal to inspection (DIP, MP, PIP joints bilaterally swollen, tender, tophi), no cyanosis, no clubbing and no petechiae Skin: no rashes, warm and dry Neurologic: patellar DTR's 2+ bilat, sensation intact and PERRL, EOMI, accommodation nl, no face palsy, no dysarthria Psychiatric: A+Ox3, euthymic affect Results & Data Results & Data ([facility]) Vital Signs (Past 12 Hours) Vital Signs Temp Pulse Resp BP Pulse Ox 02/16/21 14:30 91 H 14 125/73 02/16/21 14:08 89 17 02/16/21 13:30 70 12 120/65 02/16/21 13:00 69 14 122/65 02/16/21 12:30 72 17 119/66 02/16/21 12:00 70 22 106/57 L 02/16/21 11:30 70 13 116/57 L 02/16/21 11:00 70 15 02/16/21 10:30 69 19 02/16/21 10:02 78 18 02/16/21 09:31 90 12 124/60 02/16/21 09:00 83 17 02/16/21 08:30 80 11 L 02/16/21 08:02 81 8 L 02/16/21 07:30 78 9 L 109/53 L 94 02/16/21 07:00 81 14 110/56 L 97 02/16/21 06:37 88 15 113/93 97 02/16/21 06:01 83 14 130/72 98 02/16/21 05:30 81 17 118/49 L 95 02/16/21 05:00 86 18 126/61 95 02/16/21 04:59 37.5 C 86 18 117/93 96 02/16/21 04:56 88 14 117/93 98 Laboratory Results Laboratory Results - last 24 hr 02/16/21 02/16/21 02/16/21 05:10 05:10 05:10 WBC 12.79 H RBC 3.39 L Hgb 10.6 L Hct 31.6 L MCV 93.2 MCH 31.3 MCHC 33.5 RDW Std Deviation 44.7 RDW Coeff of [place] 13.2 Plt Count 327 MPV 9.1 Immature Gran % (Auto) 0.7 Neut % (Auto) 81.6 Lymph % (Auto) 9.3 [place] % (Auto) 6.6 Eos % (Auto) 1.6 Baso % (Auto) 0.2 Neut # (Auto) 10.44 H Lymph # (Auto) 1.19 L [place] # (Auto) 0.84 H Eos # (Auto) 0.20 Baso # (Auto) 0.03 Immature Gran # (Auto) 0.09 H ESR 42 H Sodium 132 L Potassium 4.0 Chloride 101 Carbon Dioxide 24 Anion Gap 7.0 BUN 49 H Creatinine 1.64 H Est Cr Clr Drug Dosing 31.3 Est GFR ( Amer) 35.8 Est GFR (Non-Af Amer) 30.9 BUN/Creatinine Ratio 30.0 H Glucose 115 H Lactate Calcium 9.6 Magnesium 1.7 L Total Bilirubin 0.5 Direct Bilirubin < 0.1 AST 54 H ALT 71 Alkaline Phosphatase 82 Troponin I < 0.015 C-Reactive Protein 2.54 H Total Protein 7.4 Albumin 3.5 Lipase 224 Procalcitonin Urine Color Urine Appearance Urine pH Ur Specific [place] Urine Protein Urine Glucose (UA) Urine Ketones Urine Blood Urine Nitrite Urine Bilirubin Urine Urobilinogen Ur Leukocyte Esterase COVID-19 Eval Order SARS-CoV-2 (PCR) 02/16/21 02/16/21 02/16/21 05:10 05:10 06:33 WBC RBC Hgb Hct MCV MCH MCHC RDW Std Deviation RDW Coeff of [place] Plt Count MPV Immature Gran % (Auto) Neut % (Auto) Lymph % (Auto) [place] % (Auto) Eos % (Auto) Baso % (Auto) Neut # (Auto) Lymph # (Auto) [place] # (Auto) Eos # (Auto) Baso # (Auto) Immature Gran # (Auto) ESR Sodium Potassium Chloride Carbon Dioxide Anion Gap BUN Creatinine Est Cr Clr Drug Dosing Est GFR ( Amer) Est GFR (Non-Af Amer) BUN/Creatinine Ratio Glucose Lactate 1.4 Calcium Magnesium Total Bilirubin Direct Bilirubin AST ALT Alkaline Phosphatase Troponin I C-Reactive Protein Total Protein Albumin Lipase Procalcitonin < 0.05 Urine Color Yellow Urine Appearance Clear Urine pH 6.0 Ur Specific [place] 1.008 Urine Protein Negative Urine Glucose (UA) Negative Urine Ketones Negative Urine Blood Negative Urine Nitrite Negative Urine Bilirubin Negative Urine Urobilinogen Negative Ur Leukocyte Esterase Negative COVID-19 Eval Order SARS-CoV-2 (PCR) 02/16/21 02/16/21 09:23 09:23 WBC RBC Hgb Hct MCV MCH MCHC RDW Std Deviation RDW Coeff of [place] Plt Count MPV Immature Gran % (Auto) Neut % (Auto) Lymph % (Auto) [place] % (Auto) Eos % (Auto) Baso % (Auto) Neut # (Auto) Lymph # (Auto) [place] # (Auto) Eos # (Auto) Baso # (Auto) Immature Gran # (Auto) ESR Sodium Potassium Chloride Carbon Dioxide Anion Gap BUN Creatinine Est Cr Clr Drug Dosing Est GFR ( Amer) Est GFR (Non-Af Amer) BUN/Creatinine Ratio Glucose Lactate Calcium Magnesium Total Bilirubin Direct Bilirubin AST ALT Alkaline Phosphatase Troponin I C-Reactive Protein Total Protein Albumin Lipase Procalcitonin Urine Color Urine Appearance Urine pH Ur Specific [place] Urine Protein Urine Glucose (UA) Urine Ketones Urine Blood Urine Nitrite Urine Bilirubin Urine Urobilinogen Ur Leukocyte Esterase COVID-19 Eval Order Covid19 at [facility] [place] SARS-CoV-2 (PCR) NEGATIVE Diagnostic Findings CT abdomen/pelvis IMPRESSION: 1. Acute sigmoid diverticulitis. No abscess or perforation. 2. No bowel obstruction. 3. Additional findings as above. Code Status & VTE Plan VTE Prophylaxis Plan VTE Prophylaxis will be ordered: Yes PG Care Time/CCT Total # of Minutes Spent Total Time Spent with Patient: Total time spent is greater than 50% in coord ination of care (as documented) at patient's floor/unit and/or counseling patient: Coding Level of Care Code 54615 Initial Inpt Care Lvl 2 Diagnoses Sigmoid diverticulitis K57.32 Acute arthritis M19.90 Dehydration E86.0
[2021-02-16] MEDS ORDERED: ONDANSETRON INJ 2 MG/ML 2 ML VIAL IV PRN (18:34)
[2021-02-16] MEDS ORDERED: PIPERACILLIN/TAZOBACTAM 3.375 GM in DEXTROSE 5% 100 ML IV SCH (18:34)
[2021-02-16] MEDS ORDERED: ACETAMINOPHEN 325 MG TAB PO PRN (18:34)
[2021-02-16] MEDS ORDERED: PIPERACILLIN/TAZOBACTAM 3.375 GM in DEXTROSE 5% 100 ML IV ONE (19:15)
[2021-02-16] MEDS: ENOXAPARIN INJ 40 MG/0.4 ML SYR SQ SCH (21:35)
[2021-02-16] MEDS: DICLOFENAC SODIUM 75 MG TABCR PO SCH (21:36)
[2021-02-16] MEDS: OXYBUTYNIN CHLORIDE 5 MG TAB PO SCH (21:36)
[2021-02-16] MEDS: ATORVASTATIN 40 MG TAB PO SCH (21:36)
[2021-02-16] MEDS: METOPROLOL TARTRATE 25 MG TAB PO SCH (21:39)
[2021-02-17] MEDS: PIPERACILLIN/TAZOBACTAM 3.375 GM in DEXTROSE 5% 100 ML IV SCH ×3 (03:26→18:14)
[2021-02-17] MEDS: SODIUM CHLORIDE 0.9% 1000ML 1,000 ML IV SCH ×2 (03:26→15:22)
[2021-02-17 06:46] LABS: Basophils # (auto) 0.03 K/uL (0-0.2); Basophils % (auto) 0.5 %; Eosinophils # (auto) 0.13 K/uL (0-0.5); Eosinophils % (auto) 2.2 %; Hematocrit (blood only) 27.1 % (37-47); Hemoglobin 8.7 g/dL (12.0-16.0); Immature Granulocytes # (auto) 0.02 K/uL (0.00-0.02); Immature Granulocytes % (auto) 0.3 %; Lymphocytes % (auto) 24.2 %; Mean Corpuscular Hemoglobin 30.2 pg (25-34); Mean Corpuscular Hgb Conc 32.1 g/dL (32-36); Mean Corpuscular Volume 94.1 fL (80-100); Mean Platelet Volume 8.7 fL (7.4-10.4); Monocytes # (auto) 0.65 K/uL (0.11-0.59); Monocytes % (auto) 11.2 %; Neutrophils # (auto) 3.56 K/uL (1.4-6.5); Neutrophils % (auto) 61.6 %; Platelet Count 253 K/uL (130-400); RDW Coefficient of Variation 13.6 % (11.5-14.5); Red Blood Count 2.88 M/uL (4.2-5.4); White Blood Count 5.79 K/uL (4.8-10.8)
[2021-02-17 07:18] LABS: BUN Creatinine Ratio 20.3 (10-20); Calcium 8.5 mg/dl (8.5-10.1); Creatinine Clr Calc Pharmacy 41.6 ml/min; Est GFR (African American) 51.3 ml/min; Est GFR (Non-African American) 44.2 ml/min; Potassium 3.5 mmol/L (3.5-5.1)
[2021-02-17] MEDS: METOPROLOL TARTRATE 25 MG TAB PO SCH ×2 (08:12→20:54)
[2021-02-17] MEDS: DICLOFENAC SODIUM 75 MG TABCR PO SCH ×2 (08:12→20:51)
[2021-02-17] MEDS: PANTOprazole 40 MG TAB PO SCH (08:12)
[2021-02-17] MEDS: CALCIUM 600MG + VIT D 400 IU TAB PO SCH (08:12)
--- NOTE | 2021-02-17 09:38 | XRay Report ---
LEFT HAND 3 VIEWS CLINICAL HISTORY: Arthritis. FINDINGS: 3 views of the left hand are obtained. No prior studies are available for comparison at the time of dictation. The skeletal structures are osteopenic. No acute fracture is seen. There is degen erative narrowing at the radiocarpal articulation. Bony spurring is seen along the radial aspect of t he scaphoid. Advanced osteoarthritic changes at the first carpometacarpal joint where there is bony o vergrowth, sclerosis, severe loss of the joint space, and subluxation. Moderate to severe osteophytic arthritic changes seen involving the radial intercarpal articulations and at the second carpometacar pal joint. Moderate osteoarthritic change is seen involving the first, second, and third metacarpopha langeal joints. There is subluxation at the second and third MTPs. Hooked osteophytes are noted in th e second and third metacarpal heads. Advanced arthritic change is noted involving the interphalangeal joints, distal greater than proximal. 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 This is greatest involving the first interphalangeal joint, as well as the third and fift h distal interphalangeal joints. There is subluxation at the first interphalangeal joint and the thir d DIP. Soft tissue edema is noted throughout the hand and fingers. IMPRESSION: 1. No fracture is seen. 2. Advanced arthritic change as detailed above with associated soft tissue edema throughout the finge rs and hand. Electronically signed by: Falco Sheppard M.D. 02/17/2021 9:37 AM
--- NOTE | 2021-02-17 11:02 | XRay Report ---
XR hand RT min 3V routine CLINICAL HISTORY: Acute arthritis. Bilateral hand pain. COMPARISON: None FINDINGS: No acute fracture is identified. Note is made of severe disc space narrowing with osteophy tosis within multiple articulations of the right hand and wrist. There is associated soft tissue swel ling, most pronounced within the fourth finger. No erosions are identified. IMPRESSION: 1. No acute fracture or dislocation within the right hand. 2. Severe arthritis within multiple articulations of the right hand and wrist with associated soft ti ssue swelling. ACT 112: Negative or not required by law. Electronically signed by: Nick Pierre M.D. 02/17/2021 11:00 AM
[2021-02-17] MEDS: ENOXAPARIN INJ 40 MG/0.4 ML SYR SQ SCH (18:14)
[2021-02-17] MEDS: OXYBUTYNIN CHLORIDE 5 MG TAB PO SCH (20:51)
[2021-02-17] MEDS: ATORVASTATIN 40 MG TAB PO SCH (20:51)
--- NOTE | 2021-02-17 22:44 | Hospitalist Progress Note ---
Date of Service February 17, 2021 Assessment & Plan (1) Sigmoid diverticulitis: Plan: had diverticulitis many many years prior continue Zosyn IV, look for less pain, less diarrhea allow her to eat WBC down to normal still with diarrhea? 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 presents with sausage digits, tophi will get hand x-rays - no erosive changes, only chronic arthritic changes seen with soft tissue swelling ask rheumatology to see since the arthritis is so pronounced -- no one available until 02/22 check LIDYA screen, uric acid, CRP, ESR tomorrow (3) Dehydration: Plan: poor oral intake, losses from diarrhea give NSS at 125cc/hr initially stop fluids (4) Anemia: Plan: Hb dropped, could be from fluids no melena, no bright red blood repeat H/H tomorrow Admission and Anticipated Discharge Date Admission Date: February 16, 2021 Subjective patient feeling a little better, less abdominal pain, still with diarrhea, maybe three times, no blood discussed Hb dropped a little, will monitor fingers, arthritis a little better breathing well, no fever, tolerating liquid diet, will advance to low residue diet Review of Systems Review of Systems: All systems reviewed & are unremarkable except as noted in Subjective Gastrointestinal: + abdominal pain and + diarrhea/loose stools; no nausea and no vomiting Musculoskeletal: + joint pain (fingers bilaterally) Physical Exam Constitutional: well developed, well nourished and + obese; no acute distress Neck: trachea midline, no thyromegaly Respiratory: normal respiratory effort, lungs clear to auscultation Cardiovascular: RRR, no murmur, no edema Gastrointestinal (Abdomen): Inspection/Auscultation: abdomen normal to inspection and normal bowel sounds; abdomen not distended Percussion/Palpation: + abdomen tender (lower, central abdomen), abdomen soft and normal to percussion; no guarding and abdomen not rigid Musculoskeletal: Head/Neck/Chest: normocephalic, head atraumatic and neck supple Spine: no thoracic spinal tenderness and no lumbar spinal tenderness Extremities: + extremities abnormal to inspection (DIP, MP, PIP joints bilaterally swollen, tender, tophi), no cyanosis, no clubbing and no petechiae Skin: no rashes, warm and dry Neurologic: patellar DTR's 2+ bilat, sensation intact and PERRL, EOMI, accommodation nl, no face palsy, no dysarthria Psychiatric: A+Ox3, euthymic affect Results & Data Results & Data ([facility]) Vital Signs (Past 12 Hours) Vital Signs Temp Pulse Resp BP BP Pulse Ox 02/17/21 21:00 75 128/75 02/17/21 15:35 37.0 C 71 16 104/52 L 96 Laboratory Results Laboratory Results - last 24 hr 02/16/21 02/17/21 02/17/21 Unknown 06:32 06:32 WBC 5.79 RBC 2.88 L Hgb 8.7 L Hct 27.1 L MCV 94.1 MCH 30.2 MCHC 32.1 RDW Std Deviation 47.0 H RDW Coeff of [place] 13.6 Plt Count 253 MPV 8.7 Immature Gran % (Auto) 0.3 Neut % (Auto) 61.6 Lymph % (Auto) 24.2 [place] % (Auto) 11.2 Eos % (Auto) 2.2 Baso % (Auto) 0.5 Neut # (Auto) 3.56 Lymph # (Auto) 1.40 [place] # (Auto) 0.65 H Eos # (Auto) 0.13 Baso # (Auto) 0.03 Immature Gran # (Auto) 0.02 Sodium Potassium Chloride Carbon Dioxide Anion Gap BUN Creatinine Est Cr Clr Drug Dosing Est GFR ( Amer) Est GFR (Non-Af Amer) BUN/Creatinine Ratio Glucose Calcium Stl C. diff Tox B Gene Negative Cdiff Gene Hepatitis C Ab Screen Neg 02/17/21 06:32 WBC RBC Hgb Hct MCV MCH MCHC RDW Std Deviation RDW Coeff of [place] Plt Count MPV Immature Gran % (Auto) Neut % (Auto) Lymph % (Auto) [place] % (Auto) Eos % (Auto) Baso % (Auto) Neut # (Auto) Lymph # (Auto) [place] # (Auto) Eos # (Auto) Baso # (Auto) Immature Gran # (Auto) Sodium 140 D Potassium 3.5 Chloride 112 H Carbon Dioxide 22 Anion Gap 6.0 BUN 25 H Creatinine 1.22 H D Est Cr Clr Drug Dosing 41.6 Est GFR ( Amer) 51.3 Est GFR (Non-Af Amer) 44.2 BUN/Creatinine Ratio 20.3 H Glucose 90 Calcium 8.5 Stl C. diff Tox B Gene Hepatitis C Ab Screen Medications Administered Current Inpatient Medications Acetaminophen (Acetaminophen 325 Mg Tab) 650 mg PO Q4H PRN PRN Reason: pain/fever Stop: 03/18/21 18:33 Last Admin: 02/17/21 20:54 Dose: 650 mg Documented by: Atorvastatin Calcium (Atorvastatin 40 Mg Tab) 80 mg PO QPM [facility] Stop: 03/18/21 20:59 Last Admin: 02/17/21 20:51 Dose: 80 mg Documented by: Diclofenac Sodium (Diclofenac Sodium 75 Mg Tabcr) 75 mg PO BID [facility] Stop: 03/18/21 20:59 Last Admin: 02/17/21 20:51 Dose: 75 mg Documented by: Enoxaparin Sodium (Enoxaparin Inj 40 Mg/0.4 Ml Syr) 40 mg SQ Q24H [facility] Stop: 03/18/21 18:33 Last Admin: 02/17/21 18:14 Dose: 40 mg Documented by: Piperacillin Sod/Tazobactam (Sod 3.375 gm/ Dextrose) 115 mls @ 28.75 mls/hr IV Q8H [facility]; Protocol Stop: 02/27/21 01:59 Last Infusion: 02/17/21 22:22 Dose: Infused Documented by: Metoprolol Tartrate (Metoprolol Tartrate 25 Mg Tab) 75 mg PO BID [facility] Stop: 03/18/21 20:59 Last Admin: 02/17/21 20:54 Dose: 75 mg Documented by: Miscellaneous Information (Piperacill/Tazobac Consult Active) 1 ea N/A UD PRN PRN Reason: Consult Stop: 03/18/21 18:33 Multivitamins/Minerals (Calcium 600mg + Vit D 400 Iu Tab) 1 tab PO DAILY [facility] Stop: 03/19/21 08:59 Last Admin: 02/17/21 08:12 Dose: 1 tab Documented by: Ondansetron HCl (Ondansetron Inj 2 Mg/Ml 2 Ml Vial) 4 mg IV Q6H PRN PRN Reason: Nausea Stop: 03/18/21 18:33 Oxybutynin Chloride (Oxybutynin Chloride 5 Mg Tab) 5 mg PO QPM [facility] Stop: 03/18/21 20:59 Last Admin: 02/17/21 20:51 Dose: 5 mg Documented by: Pantoprazole Sodium (Pantoprazole 40 Mg Tab) 40 mg PO QAM [facility] Stop: 03/19/21 08:59 Last Admin: 02/17/21 08:12 Dose: 40 mg Documented by: PG Care Time/CCT Total # of Minutes Spent Total Time Spent with Patient: Total time spent is greater than 50% in coordination of care (as documented) at patient's floor/unit and/or counseling patient: Coding Level of Care Code 83616 Subseq Hosp Care Lvl 3 Diagnoses Sigmoid diverticulitis K57.32 Acute arthritis M19.90 Dehydration E86.0 Anemia D64.9
[2021-02-18] MEDS: PIPERACILLIN/TAZOBACTAM 3.375 GM in DEXTROSE 5% 100 ML IV SCH ×3 (01:49→17:43)
--- NOTE | 2021-02-18 06:05 | Electrocardiogram Report ---
Test Reason : Blood Pressure : / mmHG Vent. Rate : 087 BPM Atrial Rate : 087 BPM P-R Int : 208 ms QRS Dur : 080 ms QT Int : 342 ms P-R-T Axes : 063 012 044 degrees QTc Int : 411 ms Poor data quality, interpretation may be adversely affected Normal sinus rhythm Normal ECG When compared with ECG of 26-FEB-2018 15:08, No significant change was found Confirmed by Ignacio Levi ([id number] on 02/18/2021 6:05:20 AM Referred By: Confirmed By:Ignacio Levi
[2021-02-18 07:37] LABS: Hematocrit (blood only) 28.7 % (37-47); Hemoglobin 9.1 g/dL (12.0-16.0); Mean Corpuscular Hemoglobin 29.9 pg (25-34); Mean Corpuscular Hgb Conc 31.7 g/dL (32-36); Mean Corpuscular Volume 94.4 fL (80-100); Mean Platelet Volume 8.8 fL (7.4-10.4); Platelet Count 251 K/uL (130-400); RDW Coefficient of Variation 13.7 % (11.5-14.5); RDW Standard Deviation 47.3 fL (36.4-46.3); Red Blood Count 3.04 M/uL (4.2-5.4); White Blood Count 7.02 K/uL (4.8-10.8)
[2021-02-18 08:02] LABS: BUN Creatinine Ratio 13.9 (10-20); C Reactive Protein 7.4 mg/dl (0-0.29); Calcium 8.9 mg/dl (8.5-10.1); Creatinine Clr Calc Pharmacy 37.8 ml/min; Est GFR (African American) 45.8 ml/min; Est GFR (Non-African American) 39.5 ml/min; Potassium 3.7 mmol/L (3.5-5.1)
[2021-02-18] MEDS: METOPROLOL TARTRATE 25 MG TAB PO SCH ×2 (08:45→20:14)
[2021-02-18] MEDS: CALCIUM 600MG + VIT D 400 IU TAB PO SCH (08:45)
[2021-02-18] MEDS: DICLOFENAC SODIUM 75 MG TABCR PO SCH ×2 (08:45→20:14)
[2021-02-18] MEDS: PANTOprazole 40 MG TAB PO SCH (08:46)
--- NOTE | 2021-02-18 14:16 | Hospitalist Progress Note ---
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 presents with sausage digits, tophi will get hand x-rays - no erosive changes, only chronic arthritic changes seen with soft tissue swelling ask rheumatology to see since the arthritis is so pronounced -- no one available until 02/22 check LIDYA screen, will take a few days uric acid normal ESR and CRP elevated, could partially be due to diverticulitis (3) Dehydration: Plan: poor oral intake, losses from diarrhea give NSS at 125cc/hr initially (4) Anemia: Plan: Hb dropped, could be from fluids no melena, no bright red blood repeat H/H today is 9 Admission and Anticipated Discharge Date Admission Date: February 16, 2021 Subjective patient says she is "a little better" less pain, still with diarrhea which is frustrating will repeat C diff testing on her, told her to get a sample fingers are about the same reviewed labs, uric acid normal, ESR 36, CRP 7.4, cr 1.3 LIDYA pending (send out labs) no fever/chills, no chest pain, no dyspnea, tolerating food Review of Systems Review of Systems: All systems reviewed & are unremarkable except as noted in Subjective Gastrointestinal: + abdominal pain and + diarrhea/loose stools; no nausea and no vomiting Musculoskeletal: + joint pain Physical Exam Constitutional: well developed, well nourished and + obese; no acute distress Neck: trachea midline, no thyromegaly Respiratory: normal respiratory effort, lungs clear to auscultation Cardiovascular: RRR, no murmur, no edema Gastrointestinal (Abdomen): Inspection/Auscultation: abdomen normal to inspection and normal bowel sounds; abdomen not distended Percussion/Palpation: + abdomen tender (lower, central abdomen), abdomen soft and normal to percussion; no guarding and abdomen not rigid Musculoskeletal: Head/Neck/Chest: normocephalic, head atraumatic and neck supple Spine: no thoracic spinal tenderness and no lumbar spinal tenderness Extremities: + extremities abnormal to inspection (DIP, MP, PIP joints bilaterally swollen, tender, tophi), no cyanosis, no clubbing and no petechiae Skin: no rashes, warm and dry Neurologic: patellar DTR's 2+ bilat, sensation intact and PERRL, EOMI, accommodation nl, no face palsy, no dysarthria Psychiatric: A+Ox3, euthymic affect Results & Data Results & Data ([facility]) Vital Signs (Past 12 Hours) Vital Signs Temp Pulse Resp BP Pulse Ox 02/18/21 06:28 36.8 C 62 18 123/72 96 Laboratory Results Laboratory Results - last 24 hr 02/18/21 02/18/21 02/18/21 07:20 07:20 07:20 WBC 7.02 RBC 3.04 L Hgb 9.1 L Hct 28.7 L MCV 94.4 MCH 29.9 MCHC 31.7 L RDW Std Deviation 47.3 H RDW Coeff of Neville 13.7 Plt Count 251 MPV 8.8 ESR 36 H Sodium 140 Potassium 3.7 Chloride 112 H Carbon Dioxide 23 Anion Gap 6.0 BUN 19 H Creatinine 1.34 H Est Cr Clr Drug Dosing 37.8 Est GFR ( Amer) 45.8 Est GFR (Non-Af Amer) 39.5 BUN/Creatinine Ratio 13.9 Glucose 99 Uric Acid 5.0 Calcium 8.9 C-Reactive Protein 7.40 H LIDYA Screen SS-A/Ro Antibody SS-B/La Antibody Sm (Francisco) Antibody SUPPLY CLERK Antibody Scl-70 Scleroderma Ab Anti-ds DNA (Crithidia) Anti-Centromere Ab Complement C3 Complement C4 02/18/21 07:20 WBC RBC Hgb Hct MCV MCH MCHC RDW Std Deviation RDW Coeff of Neville Plt Count MPV ESR Sodium Potassium Chloride Carbon Dioxide Anion Gap BUN Creatinine Est Cr Clr Drug Dosing Est GFR ( Amer) Est GFR (Non-Af Amer) BUN/Creatinine Ratio Glucose Uric Acid Calcium C-Reactive Protein LIDYA Screen Pending SS-A/Ro Antibody Pending SS-B/La Antibody Pending Sm (Francisco) Antibody Pending SUPPLY CLERK Antibody Pending Scl-70 Scleroderma Ab Pending Anti-ds DNA (Crithidia) Pending Anti-Centromere Ab Pending Complement C3 Pending Complement C4 Pending Medications Administered Current Inpatient Medications Acetaminophen (Acetaminophen 325 Mg Tab) 650 mg PO Q4H PRN PRN Reason: pain/fever Stop: 03/18/21 18:33 Last Admin: 02/17/21 20:54 Dose: 650 mg Documented by: Atorvastatin Calcium (Atorvastatin 40 Mg Tab) 80 mg PO QPM FOR[facility], [facility]1983 Stop: 03/18/21 20:59 Last Admin: 02/17/21 20:51 Dose: 80 mg Documented by: Diclofenac Sodium (Diclofenac Sodium 75 Mg Tabcr) 75 mg PO BID [facility], [facility]1983 Stop: 03/18/21 20:59 Last Admin: 02/18/21 08:45 Dose: 75 mg Documented by: Enoxaparin Sodium (Enoxaparin Inj 40 Mg/0.4 Ml Syr) 40 mg SQ Q24H [facility], [facility]1983 Stop: 03/18/21 18:33 Last Admin: 02/17/21 18:14 Dose: 40 mg Documented by: Piperacillin Sod/Tazobactam (Sod 3.375 gm/ Dextrose) 115 mls @ 28.75 mls/hr IV Q8H [facility], [facility]1983; Protocol Stop: 02/27/21 01:59 Last Admin: 02/18/21 09:23 Dose: 28.8 mls/hr Documented by: Metoprolol Tartrate (Metoprolol Tartrate 25 Mg Tab) 75 mg PO BID [facility], [facility]1983 Stop: 03/18/21 20:59 Last Admin: 02/18/21 08:45 Dose: 75 mg Documented by: Miscellaneous Information (Piperacill/Tazobac Consult Active) 1 ea N/A UD PRN PRN Reason: Consult Stop: 03/18/21 18:33 Multivitamins/Minerals (Calcium 600mg + Vit D 400 Iu Tab) 1 tab PO DAILY [facility]1983 Stop: 03/19/21 08:59 Last Admin: 02/18/21 08:45 Dose: 1 tab Documented by: Ondansetron HCl (Ondansetron Inj 2 Mg/Ml 2 Ml Vial) 4 mg IV Q6H PRN PRN Reason: Nausea Stop: 03/18/21 18:33 Oxybutynin Chloride (Oxybutynin Chloride 5 Mg Tab) 5 mg PO QPM [facility], [facility]1983 Stop: 03/18/21 20:59 Last Admin: 02/17/21 20:51 Dose: 5 mg Documented by: Pantoprazole Sodium (Pantoprazole 40 Mg Tab) 40 mg PO QAM [facility], [facility]1983 Stop: 03/19/21 08:59 Last Admin: 02/18/21 08:46 Dose: 40 mg Documented by: PG Care Time/CCT Total # of Minutes Spent Total Time Spent with Patient: Total time spent is greater than 50% in coordination of care (as documented) at patient's floor/unit and/or counseling patient: Coding Level of Care Code 34070 Subseq Hosp Care Lvl 2 Diagnoses Sigmoid diverticulitis K57.32 Acute arthritis M19.90 Dehydration E86.0 Anemia D64.9
[2021-02-18] MEDS: ENOXAPARIN INJ 40 MG/0.4 ML SYR SQ SCH (17:43)
[2021-02-18] MEDS: ATORVASTATIN 40 MG TAB PO SCH (20:14)
[2021-02-18] MEDS: OXYBUTYNIN CHLORIDE 5 MG TAB PO SCH (20:14)
[2021-02-19] MEDS: PIPERACILLIN/TAZOBACTAM 3.375 GM in DEXTROSE 5% 100 ML IV SCH ×2 (02:12→10:12)
[2021-02-19 05:51] LABS: Basophils # (auto) 0.01 K/uL (0-0.2); Basophils % (auto) 0.2 %; Eosinophils # (auto) 0.26 K/uL (0-0.5); Eosinophils % (auto) 3.9 %; Hematocrit (blood only) 27.7 % (37-47); Hemoglobin 8.9 g/dL (12.0-16.0); Immature Granulocytes # (auto) 0.05 K/uL (0.00-0.02); Immature Granulocytes % (auto) 0.8 %; Lymphocytes % (auto) 24.1 %; Mean Corpuscular Hemoglobin 30.1 pg (25-34); Mean Corpuscular Hgb Conc 32.1 g/dL (32-36); Mean Corpuscular Volume 93.6 fL (80-100); Mean Platelet Volume 9.1 fL (7.4-10.4); Monocytes # (auto) 0.49 K/uL (0.11-0.59); Monocytes % (auto) 7.4 %; Neutrophils # (auto) 4.22 K/uL (1.4-6.5); Neutrophils % (auto) 63.6 %; Platelet Count 272 K/uL (130-400); RDW Coefficient of Variation 13.7 % (11.5-14.5); RDW Standard Deviation 46.9 fL (36.4-46.3); Red Blood Count 2.96 M/uL (4.2-5.4); White Blood Count 6.63 K/uL (4.8-10.8)
[2021-02-19 06:25] LABS: Albumin Level 2.5 gm/dl (3.4-5.0); BUN Creatinine Ratio 13.4 (10-20); Bilirubin Direct 0.1 mg/dl (0-0.2); Calcium 8.5 mg/dl (8.5-10.1); Creatinine Clr Calc Pharmacy 35.7 ml/min; Est GFR (African American) 42.7 ml/min; Est GFR (Non-African American) 36.8 ml/min; Potassium 3.7 mmol/L (3.5-5.1)
[2021-02-19 06:28] LABS: Bilirubin,Total 0.6 mg/dl (0.2-1)
[2021-02-19] MEDS: CALCIUM 600MG + VIT D 400 IU TAB PO SCH (08:46)
[2021-02-19] MEDS: PANTOprazole 40 MG TAB PO SCH (08:46)
[2021-02-19] MEDS: METOPROLOL TARTRATE 25 MG TAB PO SCH (08:46)
[2021-02-19] MEDS: DICLOFENAC SODIUM 75 MG TABCR PO SCH (08:46)
--- NOTE | 2021-02-19 14:11 | Discharge Summary ---
Date of Service February 19, 2021 Admission HPI Per Admitting Provider 70 yo female presents with 3 weeks of diarrhea, says she has not really had a solid stool in that time frame. She says her PCP has tested her for C diff and stool cultures, negative testing. She was placed on Flagyl with no improvement. Tested for COVID, negative. She says she moves her bowels several times a day. She has been trying to keep up with oral intake to replace what she loses. Admits to lower abdominal pain, most pronounced in center of abdomen. Pain is bad when she has to move her bowels, relieved after BM. No blood or melena seen, stools are orange/mucous color. No nausea or vomiting. In the ED CT abd/pelvis shows acute diverticulitis of sigmoid colon. She says she had diverticulitis many years ago, she is careful about what she eats, has been okay for many years. Recently, over past week, her finger joints have become swollen, very tender. Never had this issue before. She has h/o ankylosing spondylitis, diagnosed with HLA B27 mutation. Has not followed with cold working supervisor for many years, has not had issues. Principal Diagnosis Sigmoid diverticulitis, without abscess Reactive arthritis Discharge Exam Constitutional well developed, well nourished and + obese; no acute distress Eyes PERRL, conjunctivae normal, anicteric sclerae ENMT external ear and nose normal, oropharynx normal Neck trachea midline, no thyromegaly Respiratory normal respiratory effort, lungs clear to auscultation Cardiovascular RRR, no murmur, no edema Gastrointestinal (Abdomen) Inspection/Auscultation: abdomen normal to inspection and normal bowel sounds; abdomen not distended Percussion/Palpation: abdomen soft and normal to percussion; abdomen nontender, no guarding and abdomen not rigid Musculoskeletal Head/Neck/Chest: normocephalic, head atraumatic and neck supple Spine: no thoracic spinal tenderness and no lumbar spinal tenderness Extremities: + extremities abnormal to inspection (DIP, MP, PIP joints bilaterally swollen, tender, tophi), no cyanosis, no clubbing and no petechiae Skin no rashes, warm and dry Neurologic patellar DTR's 2+ bilat, sensation intact and PERRL, EOMI, accommodation nl, no face palsy, no dysarthria Psychiatric A+Ox3, euthymic affect Discharge Data Allergies Allergy/AdvReac Type Severity Reaction Status Date / Time adhesive Allergy Unknown BLISTERS Verified 02/16/21 07:10 aspirin Allergy Unknown HIVES Verified 02/16/21 07:10 celecoxib Allergy Unknown HIVES Verified 02/16/21 07:10 ibuprofen Allergy Unknown HIVES Verified 02/16/21 07:10 naproxen Allergy Unknown HIVES Verified 02/16/21 07:10 piroxicam Allergy Unknown HIVES Verified 02/16/21 07:10 Sulfa (Sulfonamide Allergy Unknown VOMITING/HI Verified 02/16/21 07:10 Antibiotics) VES tetracycline Allergy Unknown HIVES?, Verified 02/16/21 07:10 ANXIETY Consultations 02/16/21 09:09 ED Decision to Admit Stat 02/16/21 22:37 Consult Rheumatology Routine Ordered Studies 02/16/21 06:15 CT abd pelvis IV con only Stat Hospital Course (1) Sigmoid diverticulitis: had diverticulitis many many years prior treated with Zosyn IV allow her to eat, tolerating diet for two days WBC down to normal for three days but still with diarrhea check C diff - NEGATIVE stool culture from admission is negative COVID negative discharge to home on Augmentin for 11 more days follow up with PCP if still with diarrhea after treatment could consider referral to GI should have colonoscopy in 6 weeks regardless (2) Acute arthritis: unclear etiology, h/o ankylosing spondylitis 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 Garland He uric acid normal at 5 ESR and CRP elevated, could partially be due to diverticulitis pain and swelling are improved without any treatment (3) Dehydration: poor oral intake, losses from diarrhea give NSS at 125cc/hr initially drinking well, told to replace any fluids she loses from diarrhea (4) Anemia: Hb dropped, could be from fluids no melena, no bright red blood repeat H/H stable for two days straight (5) Hypertension: on admission, her lisinopril, Lasix and Spironolactone were held due to dehydration and diarrhea BP has been normal entire stay without these medications will continue to hold since she still has diarrhea instructed her she can take the Lasix as needed if she has swelling/edema follow up with PCP Total Time Total Time Spent Total Time Spent (In Minutes): 32 Discharge Plan Discharge Items Patient Disposition: Home - Self-Care Reason For Visit: DIVERTICULITIS Discharge Diagnosis: Sigmoid diverticulitis Reactive arthritis Condition on Discharge: Good Goals: complete course of Augmentin follow up with Dr. Garland He Activity: Resume your previous activity Non-emergency contact: Primary Care Provider Call non-emergency contact if: you have any medication questions, your symptoms worsen and you have a fever Follow-up/Referrals: Sahil Morales MD [Primary Care Provider] - (We attempted to make an appt for you; however, there was only an answering machine service available when we phoned Dr. Nicholson office. Please call the office again and schedule a follow up appt within 7-10 days.) Diet: Low Fiber Addtl Attending Provider Instructions: Medications: - AUGMENTIN: 1 tab twice a day for 10 more days, start this evening - FLORASTOR: probiotic to try to restore healthy gut bacteria Sigmoid diverticulitis, diarrhea CT scan showed the mild sigmoid diverticulitis, no abscess seen pain is better, WBC was elevated on admission now down to normal for three days still with loose stools, hopeful this will improve with treatment of infection stay well hydrated, replace what you lose with stools, be sure to drink fluids with electrolytes (Gatorade, Vitamin water, Pedialyte) diarrhea: stool culture negative, COVID negative, C diff negative, no colitis on CT scan, just the diverticulitis Reactive arthritis: x-ray of both hands, no erosive changes seen, just chronic arthritis and soft tissue swelling pain is better over past few days the large bumps appear to be tophi, can be seen with gout however, uric acid level was normal could try treating acute gout but not sure that is the diagnosis, colchicine causes diarrhea and hesitant to give Prednisone with diverticulitis LIDYA screen (auto immune panel) sent but results won't be back until next week, follow up with Dr. Garland He attempted to get rheumatology to see but no one stone rigger for hospital until 02/22 if arthritis changes persist, Dr. Garland He can refer you to local cold working supervisor Lisinopril, Lasix, Spironolactone: held all these medications while admitted blood pressure and volume status stable continue to hold if you get edema in legs you can take the Lasix NEEDED follow up with Dr. Garland He with blood pressure check in office Pending Studies at Discharge: Yes Studies:: LIDYA screen, should be back next week Stand-Alone Forms: My [facility], Smoking Cessation Medications and DC Order Prescriptions: New amoxicillin-pot clavulanate [Augmentin] 875-125 mg tablet 1 tab PO BID 10 Days Qty: 20 RF: 0 Continued multivitamin Tablet 1 tab PO QAM Qty: 0 RF: 0 atorvastatin 80 mg Tablet 80 mg PO QPM Qty: 0 RF: 0 pantoprazole 40 mg Tablet,Delayed Release (Dr/Ec) 40 mg PO QAM Qty: 30 RF: 0 metoprolol tartrate 50 mg Tablet 75 mg PO BID Qty: 0 RF: 0 diclofenac sodium 75 mg Tablet,Delayed Release (Dr/Ec) 75 mg PO BID Qty: 0 RF: 0 oxybutynin chloride 5 mg Tablet 5 mg PO QPM Qty: 0 RF: 0 calcium citrate-vitamin D3 250 mg-5 mcg (200 unit) Tablet 1 tab PO DAILY RF: 0 Discontinued lisinopril 5 mg Tablet 5 mg PO HS Qty: 0 RF: 0 furosemide 40 mg tablet 40 mg PO DAILY RF: 0 metronidazole 500 mg tablet 500 mg PO TID RF: 0 spironolactone 25 mg tablet 25 mg PO QAM RF: 0 Discharge Orders: Discharge Order (Routine); Ordered 02/19/21 Ordered By: Byron Philip/Other Patient Handouts: Low-Fiber Diet, ED Diverticulitis Admission Data Admit Date/Time: 02/16/21 09:59 Attending Provider: Byron Beltran Admit Provider: Byron Beltran Primary Care Provider: Sahil Morales Other Providers: Byron Beltran ; Melchor Clark Other Interventions: Discharge Summary Assessment (RN) Last Done: 02/19/21 15:20 Coding Level of Care Code D/C DAY MANAGEMENT >30 MINS Diagnoses Sigmoid diverticulitis K57.32 Acute arthritis M19.90 Dehydration E86.0 Anemia D64.9 Hypertension I10
[2021-02-25 19:55] LABS: Anti Nuclear Antibody Screen POSITIVE (NEGATIVE); Anti-Centromere Ab <1.0 NEG AI (<1.0 NEG); Anti-SS-A <1.0 NEG AI (<1.0 NEG); Anti-SS-B <1.0 NEG AI (<1.0 NEG); Complement C3 97 mg/dL (83-193); DNA ds Crithidia NEGATIVE (NEGATIVE); RNP Antibody <1.0 NEG AI (<1.0 NEG); Scleroderma Anti Scl-70 Ab <1.0 NEG AI (<1.0 NEG); Sm Antibody <1.0 NEG AI (<1.0 NEG)
[2021-03-01 08:03] LABS: ANA Pattern 2 Nuclear, Speckled
== END 2021-02-19 15:53 | disposition home or self-care (01) | DRG 392 ==
LOC: ED 04:51 → EDINP 09:59 → 3N 18:23

== ENCOUNTER 2021-04-21 17:04 | Inpatient (IN) ==
[2021-04-21] MEDS ORDERED: SODIUM CHLORIDE 0.9% 1000ML 1,000 ML IV ONE (17:35)
[2021-04-21] MEDS ORDERED: PIPERACILLIN/TAZOBACTAM 4.5 GM/120 ML BAG IV ONE (17:35)
[2021-04-21] MEDS ORDERED: MoRPHine SULFATE 4 MG/ML 1 ML CARP\\VIAL IV PRN (17:35)
[2021-04-21] MEDS ORDERED: ONDANSETRON INJ 2 MG/ML 2 ML VIAL IV STA (17:35)
[2021-04-21] MEDS ORDERED: PIPERACILL/TAZOBAC CONSULT ACTIVE PRN ×2 (17:35→21:45)
--- NOTE | 2021-04-21 17:48 | Emergency Department Note ---
Impression & Plan Acute diverticulitis, Diverticulitis of large intestine with abscess ED Provider Note NAME: BONNY PRINGLE AGE: 70 SEX: F : 1950 ARRIVES VIA: Walk-In INFORMANT: Patient, ED PROVIDER(S): Mark Thompson DO CHIEF COMPLAINT: Abdominal pain HPI: The patient is a 70-year-old female who presented to the emergency depart [facility] for an evaluation of abdominal pain. The patient has a history of diverticulitis. She had a very rough course of diverticulitis a few months ago. She was treated with antibiotics and symptoms completely resolved. The patient was pain-free for almost complete month. She started having symptoms again a few days ago. The patient went to see her primary care physician today because of the significant pain was sent for outpatient laboratory and radiographic studies. Patient was found to have diverticulitis with a rupture on CT of the abdomen and pelvis. I did review the patient's laboratory and radiographic studies with her. The patient states she has very significant pain. She also notices mild nausea. She has had no vomiting. She denies having any rectal bleeding. Pain is worsened with palpation over the abdomen defecation as well as ambulation. Patient states the pain is mildly improved with holding still. She notices no chest pain or difficulty breathing. ROS: See above HPI for pertinent positives & negatives. A total of 10 systems reviewed and were otherwise negative. PAST MEDICAL HISTORY: See Below PAST SURGICAL HISTORY: See Below FAMILY HISTORY: See Below SOCIAL HISTORY: See Below HOME MEDICATIONS: See Below ALLERGIES: See Below VITALS: See Below PHYSICAL EXAMINATION: GENERAL: The patient is awake and alert. The patient is somewhat anxious appearing and appears to be uncomfortable. EARS, NOSE, MOUTH AND THROAT: The nose is without any evidence of any deformity. NECK: The neck is nontender and supple. RESPIRATORY: Normal respiratory effort is noted there is no evidence of wheezing rhonchi or rales CARDIOVASCULAR: Regular rate and rhythm noted there no murmurs rubs or gallops normal S1 normal S2. GASTROINTESTINAL: Abdomen is soft and mildly distended. There is significant left lower quadrant tenderness palpation. There is mild guarding in the left lower quadrant. MUSCULOSKELETAL/EXTREMITIES: There is no evidence of gross deformity full range of motion is noted in the hips and shoulders. SKIN: There is no obvious evidence of any rash. There are no petechiae, pallor or cyanosis noted. NEUROLOGIC: Patient is awake alert and oriented x3. MEDICAL DECISION MAKING: The patient is a 70-year-old female who presented to the emergency department for an evaluation of left lower quadrant abdominal pain. The patient has a history of diverticulitis over the last few months. She started having worsening symptoms over the course the last few days. She had an outpatient work-up which included CT of the abdomen and pelvis. This was consistent with microperforation and abscess. The patient was sent to the emergency department for further evaluation. She was treated with IV fluids and IV pain medication. She was also treated with IV antibiotics. I discussed her condition with the on-call general surgeon as well as the on-call [facility] hospitalist. They have agreed to evaluate the patient in the emergency department for further management and disposition. The patient was reevaluated multiple times. She was somewhat improved on reevaluation. The patient did have outpatient CT and laboratory studies which I did review. Triage Nursing notes reviewed. Prior medical records reviewed Vital Signs: reviewed and remarkable for no significant abnormalities Differential diagnosis: Etiologies such as appendicitis, diverticulitis, obstruction, inflammatory bowel disease, renal colic, PUD, biliary pathology, pancreatitis, mesenteric ischemia, aortic pathology, infections, genitourinary, UTI, perforated viscus, as well as others were entertained. ER treatment provided: See below Diagnostics interpreted by me: ECG: none Cardiac Monitoring: An order was placed for continuous cardiac monitoring. The monitor shows a rate of 81 bpm with sinus rhythm. Laboratory studies: As stated above and show below. Imaging studies: See below Consultation(s): 0445: I discussed this case with Dr. Salmon who is on-call for general surgery. I discussed this case with Dr. Stinson [facility] He will evaluate the patient in the emergency department for further management and disposition. Past Med/Surg History Medical History (Updated 04/21/21 @ 19:20 by Mark Thompson DO) Ankylosing spondylitis Arrhythmia HX OF TACHYCARDIA Bladder spasm GERD (gastroesophageal reflux disease) History of palpitations Hyperlipemia Hypertension Osteoarthritis Surgical History H/O tubal ligation Hx of cataract surgery RIGHT AND LEFT Hx of colonoscopy Hx of hysterectomy Hx of lumpectomy LEFT BREAST Hx of varicose vein ligation RLE Social History Smoking Status: Former smoker Second Hand Exposure: No; Hx Alcohol Use: Yes Alcohol type: wine Hx Substance Use: No Preferred Language: Mauritian Communication Ability: Effective Visual Impairment: No Limitations Mail Examiner Required: No Beliefs That Will Affect Care: None marital status: / Current Living Situation: Alone Feels Safe at Home: Yes Assistive Devices: Cane Allergies Allergies Allergy/AdvReac Type Severity Reaction Status Date / Time adhesive Allergy Unknown BLISTERS Verified 04/21/21 18:20 aspirin Allergy Unknown HIVES Verified 04/21/21 18:20 celecoxib Allergy Unknown HIVES Verified 04/21/21 18:20 ibuprofen Allergy Unknown HIVES Verified 04/21/21 18:20 naproxen Allergy Unknown HIVES Verified 04/21/21 18:20 piroxicam Allergy Unknown HIVES Verified 04/21/21 18:20 Sulfa (Sulfonamide Allergy Unknown VOMITING/HI Verified 04/21/21 18:20 Antibiotics) VES tetracycline Allergy Unknown HIVES?, Verified 04/21/21 18:20 ANXIETY Home Meds Home Medications Medication Instructions Recorded Confirmed multivitamin 1 tab PO QAM #0 tab 03/14/17 04/21/21 atorvastatin 80 mg tablet 80 mg PO QPM #0 tab 02/22/18 04/21/21 diclofenac sodium 75 mg 75 mg PO BID #0 tab 02/22/18 04/21/21 tablet,delayed release metoprolol tartrate 50 mg tablet 75 mg PO BID #0 tab 02/22/18 04/21/21 oxybutynin chloride 5 mg tablet 5 mg PO QPM #0 tab 02/22/18 04/21/21 pantoprazole 40 mg tablet,delayed 40 mg PO QAM #30 tab 02/22/18 04/21/21 release calcium citrate 250 mg 1 tab PO QAM 02/16/21 04/21/21 calcium-vitamin D3 5 mcg (200 unit) tablet furosemide 40 mg tablet 40 mg PO QAM 04/21/21 04/21/21 lisinopril 5 mg tablet 5 mg PO QPM 04/21/21 04/21/21 prednisone 10 mg tablet 5 mg PO DAILY 04/21/21 04/21/21 spironolactone 25 mg tablet 25 mg PO QAM 04/21/21 04/21/21 Results & Data (ED) Vital Signs Vital Signs - 24 hr 04/21/21 17:12 04/21/21 17:42 04/21/21 17:44 Temperature 36 C L 37.1 C Temperature Source Temporal Artery Scan Oral Pulse Rate 87 81 Pulse Rate [Apical] 84 Pulse Rhythm Regular Pulse Rhythm [Apical] Regular Pulse Strength [Apical] Normal Respiratory Rate 18 20 18 Respiratory Effort / Characteristics Non-Labored Spontaneous Respiratory Depth Normal Normal Respiratory Pattern Regular Blood Pressure 97/63 L Blood Pressure [Right Arm] 125/48 L Blood Pressure Mean 74 Blood Pressure Mean [Right Arm] 73 Blood Pressure Position Sitting Blood Pressure Position [Right Arm] Semi-fowlers Pulse Oximetry 96 95 97 Oxygen Delivery Method Room Air Room Air Room Air Oxygen Flow Rate 0 0 Sepsis Recent Fever Within 48 Hours No Sepsis New/Unexplained Change in Mental Status N/A Sepsis Action Taken by Nursing No Action Required Home Medications Current Medication List: was personally reviewed by me Laboratory Data Attestation: I reviewed the patient's lab results. Result diagrams: 04/22/21 06:25 04/22/21 06:25 Lab Results 04/21/21 04/21/21 04/21/21 Range/Units 17:35 17:35 17:55 ESR 47 H (0-30) mm/hr Creatinine (0.6-1.2) mg/dl Est Cr Clr Drug Dosing ml/min Est GFR ( Amer) ml/min Est GFR (Non-Af Amer) ml/min C-Reactive Protein (0-0.29) mg/dl COVID-19 Eval Order Covid19 at [facility] SARS-CoV-2 (PCR) NEGATIVE (Negative) 04/21/21 Range/Units 17:55 ESR (0-30) mm/hr Creatinine 2.54 H (0.6-1.2) mg/dl Est Cr Clr Drug Dosing 19.8 ml/min Est GFR ( Amer) 21.1 ml/min Est GFR (Non-Af Amer) 18.2 ml/min C-Reactive Protein 8.11 H (0-0.29) mg/dl COVID-19 Eval Order SARS-CoV-2 (PCR) (Negative) Administered Medications Hydromorphone HCl (Hydromorphone Inj 0.5 Mg/0.5 Ml Syr) 0.25 mg IV Q4H PRN PRN Reason: Severe Pain Stop: 05/05/21 18:45 Last Admin: 04/22/21 08:02 Dose: 0.25 mg Documented by: [id number] Cosigned by: [id number] Pantoprazole Sodium 40 mg/ (Syringe) 10 mls @ 5 mls/min IV DAILY@1100 NASH Stop: 05/22/21 10:59 Last Admin: 04/22/21 11:05 Dose: 5 mls/min Documented by: [id number] Cosigned by: [id number] Sodium Chloride (Nss 1000ml) 1,000 mls @ 100 mls/hr IV .Q10H NASH Stop: 05/21/21 21:44 Last Admin: 04/22/21 08:01 Dose: 100 mls/hr Documented by: [id number] Cosigned by: [id number] Infusion: 04/22/21 08:01 Dose: 100 mls/hr Documented by: [id number] Cosigned by: [id number] Admin: 04/21/21 22:17 Dose: 100 mls/hr Documented by: [id number] Acetaminophen (Ofirmev) 1,000 mg in 100 mls @ 400 mls/hr IV Q8H PRN PRN Reason: Pain or Fever Stop: 04/24/21 21:44 Last Infusion: 04/22/21 00:51 Dose: 0 mls/hr Documented by: [id number] Admin: 04/22/21 00:20 Dose: 400 mls/hr Documented by: [id number] Piperacillin Sod/Tazobactam (Sod 3.375 gm/ Dextrose) 115 mls @ 28.75 mls/hr IV Q8H [facility]; Protocol Stop: 05/02/21 11:59 Last Admin: 04/22/21 12:18 Dose: 28.8 mls/hr Documented by: [id number] Discontinued Medications Sodium Chloride (Nss 1000ml) 1,000 mls @ 999 mls/hr IV .Q1H1M ONE Stop: 04/21/21 18:35 Last Infusion: 04/21/21 19:58 Dose: 0 mls/hr Documented by: [id number] Admin: 04/21/21 18:00 Dose: 999 mls/hr Documented by: [id number] Piperacillin Sod/Tazobactam Sod (Zosyn) 4.5 gm in 120 mls @ 240 mls/hr IV NOW ONE Stop: 04/21/21 18:04 Last Infusion: 04/21/21 19:03 Dose: 0 mls/hr Documented by: [id number] Admin: 04/21/21 18:09 Dose: 240 mls/hr Documented by: [id number] Piperacillin Sod/Tazobactam (Sod 3.375 gm/ Dextrose) 115 mls @ 28.75 mls/hr IV Q12H [facility]; Protocol Stop: 05/02/21 00:00 Last Infusion: 04/22/21 04:16 Dose: 0 mls/hr Documented by: [id number] Admin: 04/22/21 00:16 Dose: 28.8 mls/hr Documented by: [id number] Morphine Sulfate (Morphine Sulfate 4 Mg/Ml 1 Ml Carp\Vial) 4 mg IV Q30M PRN PRN Reason: Pain Stop: 05/05/21 17:34 Last Admin: 04/21/21 18:05 Dose: 4 mg Documented by: [id number] Ondansetron HCl (Ondansetron Inj 2 Mg/Ml 2 Ml Vial) 4 mg IV NOW STA Stop: 04/21/21 17:36 Last Admin: 04/21/21 18:03 Dose: 4 mg Documented by: [id number] Discharge Plan Visit Data Chief Complaint: Abdominal Pain Stated Complaint: Abdominal Pain, DR REF ED Provider: Mark Thompson Discharge Problem: Acute diverticulitis, Diverticulitis of large intestine with abscess Patient Disposition: Admitted As Inpatient Discharge Instructions Interventions: ED Discharge Assessment Last Done: 04/21/21 21:18 Discharge Problem: Diverticulitis of large intestine with abscess Qualifiers: Diverticulitis bleeding: unspecified bleeding status Qualified Code(s): K57.20 - Diverticulitis of large intestine with perforation and abscess without bleeding
--- NOTE | 2021-04-21 18:18 | Surgery Consultation ---
Date of Consultation April 21, 2021 Assessment & Plan (1) Diverticulitis of large intestine with abscess: Patient is stable to present time and not toxic She will be admitted to the hospital for bowel rest Very limited p.o. intake with ice only for 48 hours IV antibiotics IV analgesics and antiemetics Will be very slow to advance her diet She will require colonoscopy at some point in the future We will try to avoid emergent operation which would involve colostomy History of Present Illness History of Present Illness 70-year-old female presenting to the emergency room with persistent abdominal pain mostly left lower quadrant Found on CAT scan to have acute diverticulitis with pericolonic abscess extending toward the bladder This is actually worsened since a CAT scan done 02/16/2021 where again she had acute diverticulitis and at that time Did seem to respond to oral antibiotics She does not remember when her last colonoscopy was performed She has a history of hypertension and anemia Allergies Allergy/AdvReac Type Severity Reaction Status Date / Time adhesive Allergy Unknown BLISTERS Verified 02/16/21 07:10 aspirin Allergy Unknown HIVES Verified 02/16/21 07:10 celecoxib Allergy Unknown HIVES Verified 02/16/21 07:10 ibuprofen Allergy Unknown HIVES Verified 02/16/21 07:10 naproxen Allergy Unknown HIVES Verified 02/16/21 07:10 piroxicam Allergy Unknown HIVES Verified 02/16/21 07:10 Sulfa (Sulfonamide Allergy Unknown VOMITING/HI Verified 02/16/21 07:10 Antibiotics) VES tetracycline Allergy Unknown HIVES?, Verified 02/16/21 07:10 ANXIETY Home Medications Medication Instructions Recorded Confirmed Type multivitamin 1 tab PO QAM #0 tab 03/14/17 04/21/21 History atorvastatin 80 mg tablet 80 mg PO QPM #0 tab 02/22/18 04/21/21 History diclofenac sodium 75 mg 75 mg PO BID #0 tab 02/22/18 04/21/21 History tablet,delayed release metoprolol tartrate 50 mg tablet 75 mg PO BID #0 tab 02/22/18 04/21/21 History oxybutynin chloride 5 mg tablet 5 mg PO QPM #0 tab 02/22/18 04/21/21 History pantoprazole 40 mg tablet,delayed 40 mg PO QAM #30 tab 02/22/18 04/21/21 History release calcium citrate 250 mg 1 tab PO QAM 02/16/21 04/21/21 History calcium-vitamin D3 5 mcg (200 unit) tablet furosemide 40 mg tablet 40 mg PO QAM 04/21/21 04/21/21 History lisinopril 5 mg tablet 5 mg PO QPM 04/21/21 04/21/21 History prednisone 10 mg tablet 5 mg PO DAILY 04/21/21 04/21/21 History spironolactone 25 mg tablet 25 mg PO QAM 04/21/21 04/21/21 History Patient History Medical History Ankylosing spondylitis Arrhythmia HX OF TACHYCARDIA GERD (gastroesophageal reflux disease) History of palpitations Hyperlipemia Hypertension Osteoarthritis Surgical History H/O tubal ligation Hx of cataract surgery RIGHT AND LEFT Hx of colonoscopy Hx of hysterectomy Hx of lumpectomy LEFT BREAST Hx of varicose vein ligation RLE Social History Smoking Status: Former smoker Second Hand Exposure: No; Hx Alcohol Use: Yes Alcohol type: wine Hx Substance Use: No Preferred Language: Yemeni Communication Ability: Effective Visual Impairment: No Limitations [employer] Leak Tester Required: No Beliefs That Will Affect Care: None Current Living Situation: Spouse Feels Safe at Home: Yes Assistive Devices: Glasses Review of Systems Review of Systems: All systems reviewed & are unremarkable except as noted in HPI & below Physical Exam Physical Exam: Her abdomen is soft without significant distention but she does have tenderness in the left lower quadrant to deep palpation She does have bowel sounds Constitutional: well developed and well nourished; no acute distress Eyes: + anicteric sclerae Respiratory: normal respiratory effort; no respiratory distress Cardiovascular: Rate/Rhythm: regular rate Gastrointestinal (Abdomen): Inspection/Auscultation: abdomen normal to inspection; abdomen not distended Percussion/Palpation: abdomen soft Musculoskeletal: Head/Neck/Chest: head atraumatic Skin: no rashes, warm and dry Neurologic: awake Psychiatric: Orientation: alert Results & Data ([facility]) Vital Signs (Past 12 Hours) Vital Signs Temp Pulse Pulse Resp BP BP Pulse Ox 04/21/21 17:44 81 18 97 04/21/21 17:42 37.1 C 84 20 125/48 L 95 04/21/21 17:12 36 C L 87 18 97/63 L 96 Laboratory Results I did review her laboratories and her white blood cell count is 10.2 Her H&H is 10.9 and 32 respectively Diagnostic Findings I did review her CAT scan and also her CAT scan from 02/16/2021 PG Care Time/CCT Total # of Minutes Spent Total Time Spent with Patient: Total time spent is greater than 50% in coordination of care (as documented) at patient's floor/unit and/or counseling patient: Coding Level of Care Code 99206 Initial Inpt Care Lvl 3 Diagnoses Diverticulitis of large intestine with abscess K57.20
[2021-04-21 18:36] LABS: C Reactive Protein 8.11 mg/dl (0-0.29)
[2021-04-21] MEDS ORDERED: METOPROLOL TARTRATE 1 MG/ML VIAL IV PRN (18:46)
--- NOTE | 2021-04-21 18:53 | History & Physical Report ---
Date of Service April 21, 2021 Assessment & Plan (1) Diverticulitis of large intestine with abscess: Plan: NPO except meds Zosyn 3.375 mg IV every 8 hours Zofran 4 mg IV every 6 hours as needed Protonix 40 mg IV daily Acetaminophen 1 g IV every 8 hours as needed mild pain or fever Dilaudid 0.25 mg IV every 4 hours as needed for moderate and severe pain NSS at 100 mils per hour (2) Acute kidney injury: Plan: Creatinine 2.44 upon admission, with base 1.11 IV fluids as noted above, repeat laboratories in a.m. (3) Hypertension: Plan: Hold furosemide, lisinopril, metoprolol tartrate and spironolactone. Lopressor 5 mg IV every 4 hours as needed systolic blood pressure greater than 150 (4) Ankylosing spondylitis: Plan: Hold prednisone, diclofenac. Avoid stress dose steroids for now due to infection (5) GERD (gastroesophageal reflux disease): Plan: Change pantoprazole from 40 mg p.o. every morning to IV (6) Hyperlipemia: Plan: Resume atorvastatin 80 mg in evening and able to take p.o. (7) Bladder spasm: Plan: Resume oxybutynin chloride 5 mg in the evening when able to take p.o. (8) Hypercalcemia: Plan: Calcium 11.3 upon admission, with range 8.5-9.8 May be an element of hemoconcentration due to dehydration and associated acute kidney injury Repeat laboratories in a.m. History of Present Illness Chief Complaint: The patient presents to the emergency department with recurrent left lower quadrant pain over the past several days, similar to previous episodes of diverticulitis, with most recent episode a few months ago that responded to oral antibiotics Primary Care Provider: Sahil Morales MD The patient is a 70-year-old female with a past medical history including sigmoid diverticulitis, hypertension, anemia, arthritis, left hip trochanteric bursitis, hyperlipidemia, bladder spasm, GERD, and CHF. She presented to the outpatient office of her PCP with her usual symptoms of diverticulitis, and had outpatient laboratories and CT scan of abdomen pelvis performed. The CT scan of abdomen pelvis showed acute sigmoid diverticulitis and a 3.1 x 1.5 cm perforation/abscess fluid collection. Abnormal laboratories: WBC 10.29, hemoglobin 10.9, hematocrit 32.9, sodium 133, BUN 58, creatinine 2.44 and calcium 11.3. Patient was seen by general surgery Dr. Salmon while in the ED, who will be following along, with primary service being the medical service of [facility]. Allergies Allergy/AdvReac Type Severity Reaction Status Date / Time adhesive Allergy Unknown BLISTERS Verified 04/21/21 18:20 aspirin Allergy Unknown HIVES Verified 04/21/21 18:20 celecoxib Allergy Unknown HIVES Verified 04/21/21 18:20 ibuprofen Allergy Unknown HIVES Verified 04/21/21 18:20 naproxen Allergy Unknown HIVES Verified 04/21/21 18:20 piroxicam Allergy Unknown HIVES Verified 04/21/21 18:20 Sulfa (Sulfonamide Allergy Unknown VOMITING/HI Verified 04/21/21 18:20 Antibiotics) VES tetracycline Allergy Unknown HIVES?, Verified 04/21/21 18:20 ANXIETY Home Medications Medication Instructions Recorded Confirmed Type multivitamin 1 tab PO QAM #0 tab 03/14/17 04/21/21 History atorvastatin 80 mg tablet 80 mg PO QPM #0 tab 02/22/18 04/21/21 History diclofenac sodium 75 mg 75 mg PO BID #0 tab 02/22/18 04/21/21 History tablet,delayed release metoprolol tartrate 50 mg tablet 75 mg PO BID #0 tab 02/22/18 04/21/21 History oxybutynin chloride 5 mg tablet 5 mg PO QPM #0 tab 02/22/18 04/21/21 History pantoprazole 40 mg tablet,delayed 40 mg PO QAM #30 tab 02/22/18 04/21/21 History release calcium citrate 250 mg 1 tab PO QAM 02/16/21 04/21/21 History calcium-vitamin D3 5 mcg (200 unit) tablet furosemide 40 mg tablet 40 mg PO QAM 04/21/21 04/21/21 History lisinopril 5 mg tablet 5 mg PO QPM 04/21/21 04/21/21 History prednisone 10 mg tablet 5 mg PO DAILY 04/21/21 04/21/21 History spironolactone 25 mg tablet 25 mg PO QAM 04/21/21 04/21/21 History Past Med/Surg History Medical History (Updated 04/21/21 @ 18:52 by Goldy Adams MD) Ankylosing spondylitis Arrhythmia HX OF TACHYCARDIA Bladder spasm GERD (gastroesophageal reflux disease) History of palpitations Hyperlipemia Hypertension Osteoarthritis Surgical History H/O tubal ligation Hx of cataract surgery RIGHT AND LEFT Hx of colonoscopy Hx of hysterectomy Hx of lumpectomy LEFT BREAST Hx of varicose vein ligation RLE Social History Smoking Status: Former smoker Second Hand Exposure: No; Hx Alcohol Use: Yes Alcohol type: wine Hx Substance Use: No Preferred Language: Italian Communication Ability: Effective Visual Impairment: No Limitations It Support Technician Required: No Beliefs That Will Affect Care: None Current Living Situation: Spouse Feels Safe at Home: Yes Assistive Devices: Glasses Review of Systems Review of Systems: The patient denies chest pain, palpitations, shortness of breath, dyspnea on exertion, cough, lower extremity swelling, sore throat, fevers, chills, sweats, vomiting, blood in urine or stool, dysuria, urinary frequency or urgency, lightheadedness, dizziness, headache, memory loss, loss of consciousness, rash, abnormal bruising or bleeding, imbalance, focal or generalized weakness, numbness or tingling in arms or legs, generalized arthralgias or myalgias, neck pain, or night sweats. The review of systems is otherwise negative other than for that already noted a joao, and at least 10 systems have been reviewed. Physical Exam Physical Exam: The patient is awake, alert and oriented 3, well developed and well nourished, normocephalic and atraumatic, lying in bed and in no acute distress. HEENT--PERRL, EOMI, mucous membranes and oropharynx mildly dry. Neck--supple. No JVD. No bruits. Thyroid normal, trachea midline, no adenopathy. Heart--normal S1 and S2. No murmurs, rubs or gallops. Lungs--clear bilaterally, no respiratory distress, no accessory muscle use. Abdomen--decreased bowel sounds. Mildly firm. Mildly tender. Mildly distended Extremities--no cyanosis or clubbing. No edema. Dermatologic--normal skin turgor, normal color, no abnormal lymph nodes, no rash. Neurologic--cranial nerves II through XII grossly intact. Rheumatologic--normal range of motion. Psychiatric--normal affect. Results & Data Results & Data ([facility]) Vital Signs (Past 12 Hours) Vital Signs Temp Pulse Pulse Resp BP BP Pulse Ox 04/21/21 17:44 81 18 97 04/21/21 17:42 98.8 F 84 20 125/48 L 95 04/21/21 17:12 96.8 F L 87 18 97/63 L 96 Laboratory Results Laboratory Results ESR 47 mm/hr (0-30) H 04/21/21 17:55 C-Reactive Protein 8.11 mg/dl (0-0.29) H 04/21/21 17:55 COVID-19 Eval Order Covid19 at [facility] 04/21/21 17:35 Diagnostic Findings [facility], [id number] CT Scan Report Patient: BONNY PRINGLE AAdmit Date: 04/21/21MR#: [id number]: [id number] RDAcct ID:[id number]: Date: 1950ty Zip: [place], [place] [address]Jvn: 70Location: CTSex: FRoom/Bed:Att Phy: Sahil Zaman M.D.Diagnosis: LLQ PAIN, RO DIVERTICULITISPri Phy: Sahil Zaman M.D.Service Date: 04/21/21[facility] Phy:Interpreting Phy: Nick Pierre MDAdmit Phy: Ordering Phy: Sahil Zaman M.D. cc: ~ CT abd pelvis oral con only CLINICAL HISTORY: LLQ PAIN, RO DIVERTICULITIS COMPARISON STUDY: CT of the abdomen and pelvis February 16, 2021. TECHNIQUE: Axial images of the abdomen and pelvis were obtained without IV contrast due to relative renal insufficiency. Oral contrast was administered. Automated exposure control was utilized for the study. A dose lowering technique was utilized adhering to the principles of ALARA. FINDINGS: Lung bases are unremarkable. No pneumatosis, free air or portal venous gas is present. Unenhanced images of liver, spleen, adrenal glands, kidneys and pancreas are unremarkable with the exception of a few hepatic cysts. These are unchanged. There is no biliary or pancreatic ductal dilatation. No peripancreatic or pericholecystic infiltration is present. There is no evidence for a bowel obstruction. Sigmoid diverticulosis is noted. Moderate wall thickening of the proximal to mid sigmoid colon has increased since prior exam. There is pericolonic infiltration. There has been interval development of a small pericolonic gas and fluid containing collection that measures approximately 3.1 x 1.5 cm along the left lateral aspect of the proximal sigmoid colon. There is an additional component inferiorly which extends toward the bladder which measures 2.3 cm. No gas within the bladder is present. Bladder wall thickening is noted however this could be due to underdistention. No acute fracture or suspicious lesion is identified within the visualized skeletal structures. IMPRESSION: Findings consistent with acute sigmoid diverticulitis which has progressed when compared to CT of February 16, 2021. Interval development of a perisigmoid gas and fluid containing collection which measures 3.1 x 1.5 cm consistent with contained perforation with small diverticular abscess. Additional component extends inferiorly to the bladder. No gas within the bladder to definitively indicate colovesicular fistula however the findings could be correlated with urinalysis to exclude this possibility. ACT 112: Negative or not required by law. Code Status & VTE Plan Code Status Full code VTE Prophylaxis Plan VTE Prophylaxis will be ordered: Yes PG Care Time/CCT Total # of Minutes Spent Total Time Spent with Patient: Total time spent is greater than 50% in coordination of care (as documented) at patient's floor/unit and/or counseling patient: Coding Level of Care Code 41103 Initial Inpt Care Lvl 3 Diagnoses Diverticulitis of large intestine with abscess K57.20 Hypertension I10 Ankylosing spondylitis M45.9 GERD (gastroesophageal reflux disease) K21.9 Hyperlipemia E78.5 Bladder spasm N32.89 Acute kidney injury N17.9 Hypercalcemia E83.52
[2021-04-21] MEDS ORDERED: ONDANSETRON INJ 2 MG/ML 2 ML VIAL IV PRN (21:45)
[2021-04-21] MEDS: SODIUM CHLORIDE 0.9% 1000ML 1,000 ML IV SCH (22:17)
[2021-04-21 22:29] LABS: Creatinine Clr Calc Pharmacy 19.8 ml/min; Est GFR (African American) 21.1 ml/min; Est GFR (Non-African American) 18.2 ml/min
[2021-04-22] MEDS ORDERED: PIPERACILLIN/TAZOBACTAM 3.375 GM in DEXTROSE 5% 100 ML IV SCH
[2021-04-22] MEDS: ACETAMINOPHEN 1,000 MG/100 ML VIAL IV PRN ×2 (00:20→16:37)
--- NOTE | 2021-04-22 06:26 | Surgery Progress Note ---
Date of Service April 22, 2021 Assessment & Plan (1) Diverticulitis of large intestine with abscess: Plan: Continue n.p.o. with ice only today Continue IV antibiotics Patient may ambulate as tolerated May consider rescanning prior to discharge if patient continues to progress I do believe she requires at least 4 to 5 days of IV antibiotics with her findings and history of recurrent diverticulitis We may even consider an ID consult as sometimes patients require IV antibiotics at home for 1 to 2 weeks In this situation My partners and Dr. Osorio will be covering over the weekend Admission and Anticipated Discharge Date Admission Date: April 21, 2021 Subjective Patient's vital signs are stable She had some IV acetaminophen otherwise pain is well controlled She is resting comfortably at the present time Review of Systems Review of Systems: All systems reviewed & are unremarkable except as noted in HPI & below Physical Exam Physical Exam: Her abdomen is soft without significant distention Constitutional: well developed and well nourished; no acute distress Eyes: + anicteric sclerae Respiratory: normal respiratory effort; no respiratory distress Cardiovascular: Rate/Rhythm: regular rate Gastrointestinal (Abdomen): Inspection/Auscultation: abdomen normal to inspection; abdomen not distended Percussion/Palpation: abdomen soft Musculoskeletal: Head/Neck/Chest: head atraumatic Skin: no rashes, warm and dry Neurologic: awake Psychiatric: Orientation: alert Results & Data ([facility]) Vital Signs (Past 12 Hours) Vital Signs Temp Pulse Pulse Pulse Resp BP BP 04/22/21 04:00 37.1 C 93 H 18 102/59 L 04/21/21 23:47 74 04/21/21 21:51 78 04/21/21 21:45 36.5 C 84 16 127/57 L 04/21/21 19:51 37.0 C 75 17 96/66 L 04/21/21 19:44 76 96/66 L Pulse Ox 04/22/21 04:00 97 04/21/21 23:47 04/21/21 21:51 04/21/21 21:45 92 04/21/21 19:51 96 04/21/21 19:44 96 PG Care Time/CCT Total # of Minutes Spent Total Time Spent with Patient: Total time spent is greater than 50% in coordination of care (as documented) at patient's floor/unit and/or counseling patient: Coding Level of Care Code 66169 Inpt Consult Level 3 Diagnoses Diverticulitis of large intestine with abscess K57.20 Diverticulitis bleeding: unspecified bleeding status (1) Diverticulitis of large intestine with abscess Diverticulitis bleeding: unspecified bleeding status Qualified Code(s): K57.20 - Diverticulitis of large intestine with perforation and abscess without bleeding
[2021-04-22 06:41] LABS: Basophils # (auto) 0.02 K/uL (0-0.2); Basophils % (auto) 0.2 %; Eosinophils # (auto) 0.07 K/uL (0-0.5); Eosinophils % (auto) 0.8 %; Hematocrit (blood only) 29.6 % (37-47); Hemoglobin 9.7 g/dL (12.0-16.0); Immature Granulocytes % (auto) 1.2 %; Lymphocytes # (auto) 0.95 K/uL (1.2-3.4); Lymphocytes % (auto) 11.1 %; Mean Corpuscular Hemoglobin 30.3 pg (25-34); Mean Corpuscular Hgb Conc 32.8 g/dL (32-36); Mean Corpuscular Volume 92.5 fL (80-100); Mean Platelet Volume 9.3 fL (7.4-10.4); Monocytes # (auto) 0.91 K/uL (0.11-0.59); Monocytes % (auto) 10.6 %; Neutrophils # (auto) 6.54 K/uL (1.4-6.5); Neutrophils % (auto) 76.1 %; Platelet Count 237 K/uL (130-400); RDW Coefficient of Variation 15.8 % (11.5-14.5); RDW Standard Deviation 52.8 fL (36.4-46.3); White Blood Count 8.59 K/uL (4.8-10.8)
[2021-04-22 07:30] LABS: Albumin Globulin Ratio 0.7 (0.9-2); Albumin Level 2.6 gm/dl (3.4-5.0); BUN Creatinine Ratio 22.3 (10-20); Calcium 9.2 mg/dl (8.5-10.1); Creatinine Clr Calc Pharmacy 25.2 ml/min; Est GFR (African American) 28.2 ml/min; Est GFR (Non-African American) 24.3 ml/min; Potassium 3.9 mmol/L (3.5-5.1); Total Protein 6.6 gm/dl (6.4-8.2)
[2021-04-22] MEDS: SODIUM CHLORIDE 0.9% 1000ML 1,000 ML IV SCH ×2 (08:01→16:38)
[2021-04-22] MEDS: HYDROmorphone INJ 0.5 MG/0.5 ML SYR IV PRN (08:02)
--- NOTE | 2021-04-22 09:22 | Hospitalist Progress Note ---
Date of Service April 22, 2021 Assessment & Plan (1) Diverticulitis of large intestine with abscess: Plan: seen on imaging 04/21/21, recommend to keep NPO except meds/ ice chips per consult of 04/22 abscess 3x1.5 cm left lateral sigmoid colon continues on Zosyn 3.375 mg IV every 8 hours Zofran 4 mg IV every 6 hours as needed Protonix 40 mg IV daily Acetaminophen 1 g IV every 8 hours as needed mild pain or fever Dilaudid 0.25 mg IV every 4 hours as needed for moderate and severe pain NSS at 100 mils per hour (2) Acute kidney injury: Plan: Creatinine 2.44 upon admission, with base of Chronic kideny disease stage 3 IV fluids as noted above, follow electrolytes hold renal affecting meds (3) Hypertension: Plan: Holding furosemide, lisinopril, and spironolactone. using metoprolol to avoid rebound tachycardia iv Lopressor 5 mg IV every 4 hours as needed systolic blood pressure greater than 150 (4) Ankylosing spondylitis: Plan: Hold prednisone, diclofenac. Avoid stress dose steroids for now due to infection be wary of adrenal insufficiency, check am cortisol 04/23/20 (5) GERD (gastroesophageal reflux disease): Plan: Change pantoprazole from 40 mg p.o. every morning to IV (6) Hyperlipemia: Plan: Resume atorvastatin 80 mg in evening and able to take p.o. (7) Bladder spasm: Plan: Resume oxybutynin chloride 5 mg in the evening when able to take p.o. (8) Hypercalcemia: Plan: Calcium 11.3 upon admission, now has normalized with hydration May be an element of hemoconcentration due to dehydration and associated acute kidney injury Admission and Anticipated Discharge Date Admission Date: April 21, 2021 Subjective pt has persistent abdominal pain worse with movement, attempting to treat medically as wants to try to avoid surgery if possible, no stool output no nausea or vomiting Review of Systems Review of Systems: Moderate distress and fatigue no headache, no visual changes no speech or swallowing issues no chest pain, pressure or palpitations no shortness of breath, cough or wheezes Nominal pain worse to examination and movement no nausea vomiting no stool production no dysuria, hematuria or frequency no focal joint pain or swelling Mild bilateral low back pain nonradicular no bruising, bleeding or rashes no focal signs of weakness or numbness or altered sensation no complaints of anxiety or depression.. Physical Exam Physical Exam: The patient appeared well nourished and normally developed. Vital signs as documented. Head exam is normocephalic atraumatic Neck is without JVD, thyromegaly, or carotid bruits. Lungs are clear to auscultation, no focal loss of breath sounds Cardiac exam, Rhythm is regular.. No murmurs, rubs or gallops. Abdominal exam reveals normal bowel sounds, soft milla to examination not in acute abdomen no rebound or guarding Extremities are nonedematous and both pedal pulses are present Neurologic exam is alert and oriented, no focal loss of strength or sensation Skin is without bruises or rashes Psychologically is without concerns for anxiety or depression Results & Data Results & Data ([facility]) Vital Signs (Past 12 Hours) Vital Signs Temp Pulse Pulse Pulse Resp BP BP 04/22/21 09:11 98 H 04/22/21 04:00 98.8 F 93 H 18 102/59 L 04/21/21 23:47 74 04/21/21 21:51 78 04/21/21 21:45 97.7 F 84 16 127/57 L Pulse Ox 04/22/21 09:11 04/22/21 04:00 97 04/21/21 23:47 04/21/21 21:51 04/21/21 21:45 92 PG Care Time/CCT Total # of Minutes Spent Total Time Spent with Patient: Total time spent is greater than 50% in coordination of care (as documented) at patient's floor/unit and/or counseling patient: Coding Level of Care Code 30469 Subseq Hosp Care Lvl 3 Diagnoses Diverticulitis of large intestine with abscess K57.20 Diverticulitis bleeding: unspecified bleeding status Acute kidney injury N17.9 Hypertension I10 Ankylosing spondylitis M45.9 GERD (gastroesophageal reflux disease) K21.9 Hyperlipemia E78.5 Bladder spasm N32.89 Hypercalcemia E83.52 (1) Diverticulitis of large intestine with abscess Diverticulitis bleeding: unspecified bleeding status Qualified Code(s): K57.20 - Diverticulitis of large intestine with perforation and abscess without bleeding
[2021-04-22] MEDS: PANTOprazole 40 MG in SYRINGE 0 ML IV SCH (11:05)
[2021-04-22] MEDS: PIPERACILLIN/TAZOBACTAM 3.375 GM in DEXTROSE 5% 100 ML IV SCH ×2 (12:18→20:02)
[2021-04-22] MEDS ORDERED: METOPROLOL TARTRATE 1 MG/ML VIAL IV PRN (19:03)
[2021-04-22] MEDS ORDERED: METOPROLOL TARTRATE 1 MG/ML VIAL IV STA (19:03)
[2021-04-23] MEDS ORDERED: ACETAMINOPHEN 1000 MG/100 ML IV IV STA (00:04)
[2021-04-23] MEDS ORDERED: ACETAMINOPHEN 1,000 MG/100 ML VIAL IV ONE (00:15)
[2021-04-23] MEDS: SODIUM CHLORIDE 0.9% 1000ML 1,000 ML IV SCH ×3 (01:40→17:38)
[2021-04-23] MEDS: PIPERACILLIN/TAZOBACTAM 3.375 GM in DEXTROSE 5% 100 ML IV SCH ×3 (04:48→20:20)
--- NOTE | 2021-04-23 07:19 | Hospitalist Progress Note ---
Date of Service April 23, 2021 Assessment & Plan (1) Diverticulitis of large intestine with abscess: Plan: seen on imaging 04/21/21, surgery is following abscess 3x1.5 cm left lateral sigmoid colon continues on Zosyn 3.375 mg IV every 8 hours Zofran 4 mg IV every 6 hours as needed Protonix 40 mg IV daily Acetaminophen 1 g IV every 8 hours as needed mild pain or fever Dilaudid 0.25 mg IV every 4 hours as needed for moderate and severe pain NSS at 100 mils per hour (2) Acute kidney injury: Plan: Creatinine 2.44 upon admission, with base of Chronic kideny disease stage 3 IV fluids as noted above, follow electrolytes hold renal affecting meds (3) Hypertension: Plan: Holding furosemide, lisinopril, and spironolactone. using metoprolol to avoid rebound tachycardia iv Lopressor 5 mg IV every 4 hours as needed systolic blood pressure greater than 150 (4) Ankylosing spondylitis: Plan: Hold prednisone, diclofenac. Avoid stress dose steroids for now due to infection be wary of adrenal insufficiency (5) GERD (gastroesophageal reflux disease): Plan: Change pantoprazole from 40 mg p.o. every morning to IV (6) Hyperlipemia: Plan: Resume atorvastatin 80 mg in evening and able to take p.o. (7) Bladder spasm: Plan: Resume oxybutynin chloride 5 mg when able to take p.o. 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 difficile comes back gene positive toxin negative so therefore will have appropriate contact precautions but she is likely C. difficile carrier not having acute C. difficile colitis therefore will not institute any antibiotic treatment at this time. Once taking more robust p.o. we will include some probiotics in her oral regiment Admission and Anticipated Discharge Date Admission Date: April 21, 2021 Subjective this pt is having diarrhea, did test c diff gene pos but toxin negative and was on prehospital metronidazle, otherwise still does not feel that well, is also asking for some clear liquid diet and coffee due to caffeine headache Review of Systems Review of Systems: Moderate distress and fatigue no headache, no visual changes no speech or swallowing issues no chest pain, pressure or palpitations no shortness of breath, cough or wheezes Persistent abdominal pain and diarrhea no vomitus no dysuria, hematuria or frequency no focal joint pain or swelling no back pain, CVA tenderness or radicular pain no bruising, bleeding or rashes no focal signs of weakness or numbness or altered sensation no complaints of anxiety or depression.. Physical Exam Physical Exam: The patient appeared well nourished and normally developed. Vital signs as documented. Head exam is normocephalic atraumatic Neck is without JVD, thyromegaly, or carotid bruits. Lungs are clear to auscultation, no focal loss of breath sounds Cardiac exam, Rhythm is regular.. No murmurs, rubs or gallops. Abdominal exam reveals normal bowel sounds, she is diffusely tender no focal loss no rebound no guarding Extremities are nonedematous and both pedal pulses are present Neurologic exam is alert and oriented, no focal loss of strength or sensation Skin is without bruises or rashes Psychologically is without concerns for anxiety or depression Results & Data Results & Data ([facility]) Vital Signs (Past 12 Hours) Vital Signs Temp Pulse Pulse Resp BP Pulse Ox 04/23/21 07:12 87 04/23/21 03:33 98.2 F 90 18 110/68 94 04/23/21 02:02 94 H 04/23/21 00:26 98.4 F 100 H 18 107/66 95 04/22/21 19:46 98.4 F 110 H 18 145/57 H 95 PG Care Time/CCT Total # of Minutes Spent Total Time Spent with Patient: Total time spent is greater than 50% in coordination of care (as documented) at patient's floor/unit and/or counseling patient: Coding Level of Care Code 56887 Subseq Hosp Care Lvl 2 Diagnoses Diverticulitis of large intestine with abscess K57.20 Diverticulitis bleeding: unspecified bleeding status Acute kidney injury N17.9 Hypertension I10 Ankylosing spondylitis M45.9 GERD (gastroesophageal reflux disease) K21.9 Hyperlipemia E78.5 Bladder spasm N32.89 Hypercalcemia E83.52 Clostridioides difficile carrier Z22.1 (1) Diverticulitis of large intestine with abscess Diverticulitis bleeding: unspecified bleeding status Qualified Code(s): K57.20 - Diverticulitis of large intestine with perforation and abscess without bleeding
--- NOTE | 2021-04-23 08:15 | Surgery Progress Note ---
Date of Service April 23, 2021 Assessment & Plan (1) Acute diverticulitis: Plan: recurrent modest improvement. continue npo/iv antibiotics re-scan if clinically worsens currently afebrile will continue to follow closely [facility] covering for weekend. Admission and Anticipated Discharge Date Admission Date: April 21, 2021 Subjective pt seen. some modest improvement from yesterday. no new complaints. Physical Exam Constitutional: WD/WN, vitals as above no acute distress and not ill appearing Eyes: PERRL, conjunctivae normal, anicteric sclerae EOM intact bilaterally ENMT: external ear and nose normal, oropharynx normal Ears: no hearing impairment Neck: trachea midline, no thyromegaly Respiratory: normal respiratory effort; no respiratory distress and does not use accessory muscles Cardiovascular: Rate/Rhythm: regular rate and regular rhythm Gastrointestinal (Abdomen): soft. +ttp suprapubic and LLQ. mild guarding. no peritonitis. Skin: no rashes, warm and dry Psychiatric: Orientation: alert, oriented x 3 and cooperative Results & Data ([facility]) Vital Signs (Past 12 Hours) Vital Signs Temp Pulse Pulse Resp BP Pulse Ox 04/23/21 08:04 36.7 C 95 H 20 98/62 L 96 04/23/21 07:12 87 04/23/21 03:33 36.8 C 90 18 110/68 94 04/23/21 02:02 94 H 04/23/21 00:26 36.9 C 100 H 18 107/66 95 PG Care Time/CCT Total # of Minutes Spent Total Time Spent with Patient: Total time spent is greater than 50% in coordination of care (as documented) at patient's floor/unit and/or counseling patient: Coding Level of Care Code 04328 Subseq Hosp Care Lvl 3 Diagnoses Acute diverticulitis K57.92
[2021-04-23 08:46] LABS: Basophils # (auto) 0.02 K/uL (0-0.2); Basophils % (auto) 0.3 %; Eosinophils # (auto) 0.07 K/uL (0-0.5); Eosinophils % (auto) 1.1 %; Hematocrit (blood only) 27.7 % (37-47); Immature Granulocytes # (auto) 0.08 K/uL (0.00-0.02); Immature Granulocytes % (auto) 1.3 %; Lymphocytes % (auto) 15.9 %; Mean Corpuscular Hgb Conc 32.5 g/dL (32-36); Mean Corpuscular Volume 92.3 fL (80-100); Mean Platelet Volume 9.1 fL (7.4-10.4); Monocytes # (auto) 0.57 K/uL (0.11-0.59); Monocytes % (auto) 9.1 %; Neutrophils # (auto) 4.55 K/uL (1.4-6.5); Neutrophils % (auto) 72.3 %; Platelet Count 244 K/uL (130-400); RDW Standard Deviation 53.6 fL (36.4-46.3); White Blood Count 6.29 K/uL (4.8-10.8)
[2021-04-23 09:09] LABS: Albumin Level 2.2 gm/dl (3.4-5.0); Calcium 8.9 mg/dl (8.5-10.1); Creatinine Clr Calc Pharmacy 40.4 ml/min; Est GFR (African American) 49.3 ml/min; Est GFR (Non-African American) 42.5 ml/min; Magnesium 2.5 mg/dl (1.8-2.4); Potassium 3.6 mmol/L (3.5-5.1)
[2021-04-23 09:20] LABS: Albumin Globulin Ratio 0.5 (0.9-2); Bilirubin,Total 0.7 mg/dl (0.2-1); Total Protein 6.2 gm/dl (6.4-8.2)
[2021-04-23] MEDS: ACETAMINOPHEN 1,000 MG/100 ML VIAL IV PRN ×2 (11:07→20:00)
[2021-04-23] MEDS: PANTOprazole 40 MG in SYRINGE 0 ML IV SCH (11:07)
[2021-04-23 17:04] LABS: Cdiff Antigen Negative; Cdiff Toxin A+B Negative Cdiff Toxin (Negative)
[2021-04-24] MEDS: SODIUM CHLORIDE 0.9% 1000ML 1,000 ML IV SCH ×2 (03:24→12:57)
[2021-04-24] MEDS: PIPERACILLIN/TAZOBACTAM 3.375 GM in DEXTROSE 5% 100 ML IV SCH ×3 (04:22→21:09)
[2021-04-24 07:06] LABS: Basophils # (auto) 0.02 K/uL (0-0.2); Basophils % (auto) 0.4 %; Eosinophils # (auto) 0.08 K/uL (0-0.5); Eosinophils % (auto) 1.6 %; Hematocrit (blood only) 26.4 % (37-47); Hemoglobin 8.5 g/dL (12.0-16.0); Immature Granulocytes # (auto) 0.06 K/uL (0.00-0.02); Immature Granulocytes % (auto) 1.2 %; Lymphocytes # (auto) 0.82 K/uL (1.2-3.4); Lymphocytes % (auto) 16.2 %; Mean Corpuscular Hgb Conc 32.2 g/dL (32-36); Mean Corpuscular Volume 93.3 fL (80-100); Mean Platelet Volume 8.5 fL (7.4-10.4); Monocytes % (auto) 9.9 %; Neutrophils # (auto) 3.59 K/uL (1.4-6.5); Neutrophils % (auto) 70.7 %; Platelet Count 234 K/uL (130-400); RDW Coefficient of Variation 15.7 % (11.5-14.5); RDW Standard Deviation 53.6 fL (36.4-46.3); Red Blood Count 2.83 M/uL (4.2-5.4); White Blood Count 5.07 K/uL (4.8-10.8)
[2021-04-24 07:36] LABS: Albumin Globulin Ratio 0.5 (0.9-2); Albumin Level 2.2 gm/dl (3.4-5.0); BUN Creatinine Ratio 8.5 (10-20); Bilirubin,Total 0.6 mg/dl (0.2-1); Calcium 8.8 mg/dl (8.5-10.1); Creatinine Clr Calc Pharmacy 49.4 ml/min; Est GFR (African American) 63.6 ml/min; Est GFR (Non-African American) 54.9 ml/min; Globulin 4.1 gm/dl (2.5-4.0); Potassium 3.3 mmol/L (3.5-5.1); Total Protein 6.3 gm/dl (6.4-8.2)
[2021-04-24] MEDS ORDERED: POTASSIUM CHLORIDE 10 MEQ / 100ML WTR IV STA (09:12)
[2021-04-24] MEDS: POTASSIUM CHLORIDE / WTR 10 MEQ/100 ML PLCT IV SCH ×3 (10:34→12:50)
[2021-04-24] MEDS: PANTOprazole 40 MG in SYRINGE 0 ML IV SCH (11:42)
--- NOTE | 2021-04-24 11:56 | Surgery Progress Note ---
Date of Service April 24, 2021 Assessment & Plan (1) Acute diverticulitis: Plan: F/U acute diverticulitis with 3 cm abscess, pt is doing better, less abdominal pain, normal WBC, plan continue IV antibiotic, clear diet, will F/U, Admission and Anticipated Discharge Date Admission Date: April 21, 2021 Subjective this pt is having diarrhea, did test c diff gene pos but toxin negative and was on prehospital metronidazle, otherwise still does not feel that well, is also asking for some clear liquid diet and coffee due to caffeine headache 04/24/2021 11:55AM F/U diverticulitis with 3 cm abscess, pt is doing better, less pain, no nausea, no vomiting, T 37.2, WBC 5.6 Physical Exam Constitutional: WD/WN, vitals as above Eyes: PERRL, conjunctivae normal, anicteric sclerae Neck: trachea midline, no thyromegaly Respiratory: normal respiratory effort, lungs clear to auscultation Cardiovascular: RRR, no murmur, no edema Gastrointestinal (Abdomen): soft, mild tenderness at LLQ, no rebound pain, no distend, BS + Neurologic: patellar DTR's 2+ bilat, sensation intact Psychiatric: A+Ox3, euthymic affect Results & Data ([facility]) Vital Signs (Past 12 Hours) Vital Signs Temp Pulse Pulse Resp BP BP Pulse Ox 04/24/21 11:40 37.2 C 103 H 16 148/87 H 99 04/24/21 06:43 37.3 C 103 H 18 135/82 97 04/24/21 04:00 37.1 C 91 H 18 139/79 92 04/24/21 00:23 94 H Laboratory Results Abnormal lab results 04/23/21 04/24/21 04/24/21 Range/Units 15:04 06:50 06:50 RBC 2.83 L (4.2-5.4) M/uL Hgb 8.5 L (12.0-16.0) g/dL Hct 26.4 L (37-47) % RDW Std Deviation 53.6 H (36.4-46.3) fL RDW Coeff of Neville 15.7 H (11.5-14.5) % Lymph # (Auto) 0.82 L (1.2-3.4) K/uL Immature Gran # (Auto) 0.06 H (0.00-0.02) K/uL Potassium 3.3 L (3.5-5.1) mmol/L Chloride 113 H (98-107) mmol/L Carbon Dioxide 19 L (21-32) mmol/L BUN/Creatinine Ratio 8.5 L (10-20) Total Protein 6.3 L (6.4-8.2) gm/dl Albumin 2.2 L (3.4-5.0) gm/dl Globulin 4.1 H (2.5-4.0) gm/dl Albumin/Globulin Ratio 0.5 L (0.9-2) Stl C. diff Tox B Gene Positive Cdiff Gene H (Neg)
[2021-04-24] MEDS ORDERED: OPTIRAY 320 100ml IV ONE (15:04)
--- NOTE | 2021-04-24 16:19 | Hospitalist Progress Note ---
Date of Service April 24, 2021 Assessment & Plan (1) Diverticulitis of large intestine with abscess: Plan: seen on imaging 04/21/21, surgery is following abscess 3x1.5 cm left lateral sigmoid colon continues on Zosyn 3.375 mg IV every 8 hours worsening abdominal pain with concern for worsening abscess with tachycardia, no leukocytosis, CT abdomen and pelvis ordered Protonix 40 mg IV daily Acetaminophen 1 g IV every 8 hours as needed mild pain or fever Dilaudid 0.25 mg IV every 4 hours as needed for moderate and severe pain NSS at 100 mils per hour (2) Acute kidney injury: Plan: resolved with hydration (3) Anemia: Plan: pts hgb has drifted down, no sign of acute blood loss , maybe dilutional, will follow and continue iv ppi increased to bid (4) Hypertension: Plan: continue Holding furosemide, lisinopril, and spironolactone. using metoprolol to avoid rebound tachycardia will have metoprolol 25 mg bid po with small sip and iv Lopressor 5 mg IV every 4 hours as needed systolic blood pressure greater than 150 (5) Ankylosing spondylitis: Plan: Hold prednisone, diclofenac. Avoid stress dose steroids for now due to infection be wary of adrenal insufficiency (6) GERD (gastroesophageal reflux disease): Plan: Change pantoprazole from 40 mg p.o. every morning to IV (7) Hyperlipemia: Plan: Resume atorvastatin 80 mg in evening and able to take p.o. (8) Bladder spasm: Plan: Resume oxybutynin chloride 5 mg when able to take p.o. 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 difficile comes back gene positive toxin negative so therefore will have appropriate contact precautions but she is likely C. difficile carrier not having acute C. difficile colitis therefore will not institute any antibiotic treatment at this time. Once taking more robust p.o. we will include some probiotics in her oral regiment Admission and Anticipated Discharge Date Admission Date: April 21, 2021 Subjective pt states she does not feel well, some increased pain in abdomen, no temps but 99F, is tachycardic but maybe due to pain. will have CT Abdomen and pelvis to asses abscess still with diarrhea Review of Systems Review of Systems: Moderate distress and fatigue no headache, no visual changes no speech or swallowing issues no chest pain, pressure or palpitations no shortness of breath, cough or wheezes Persistent abdominal pain slightly worse and continues with diarrhea no vomitus no dysuria, hematuria or frequency no focal joint pain or swelling no back pain, CVA tenderness or radicular pain no bruising, bleeding or rashes no focal signs of weakness or numbness or altered sensation no complaints of anxiety or depression.. Physical Exam 2 Physical Exam: The patient appeared well nourished and normally developed. Vital signs as documented. Head exam is normocephalic atraumatic Neck is without JVD, thyromegaly, or carotid bruits. Lungs are clear to auscultation, no focal loss of breath sounds Cardiac exam, Rhythm is regular.. No murmurs, rubs or gallops. Abdominal exam reveals normal bowel sounds, she is diffusely tender moreso in left lower quadrant no rebound, some guarding Extremities are nonedematous and both pedal pulses are present Neurologic exam is alert and oriented, no focal loss of strength or sensation Skin is without bruises or rashes Psychologically is without concerns for anxiety or depression Results & Data Results & Data ([facility]) Vital Signs (Past 12 Hours) Vital Signs Temp Pulse Pulse Resp BP BP Pulse Ox 04/24/21 15:49 110 H 04/24/21 11:40 99.0 F 103 H 16 148/87 H 99 04/24/21 09:00 104 H 04/24/21 06:43 99.1 F 103 H 18 135/82 97 PG Care Time/CCT Total # of Minutes Spent Total Time Spent with Patient: Total time spent is greater than 50% in coordination of care (as documented) at patient's floor/unit and/or counseling patient: Coding Level of Care Code 91340 Subseq Hosp Care Lvl 3 Diagnoses Diverticulitis of large intestine with abscess K57.20 Diverticulitis bleeding: unspecified bleeding status Acute kidney injury N17.9 Hypertension I10 Ankylosing spondylitis M45.9 GERD (gastroesophageal reflux disease) K21.9 Hyperlipemia E78.5 Bladder spasm N32.89 Hypercalcemia E83.52 Clostridioides difficile carrier Z22.1 Anemia D64.9 (1) Diverticulitis of large intestine with abscess Diverticulitis bleeding: unspecified bleeding status Qualified Code(s): K57.20 - Diverticulitis of large intestine with perforation and abscess without bleeding
[2021-04-24] MEDS: HYDROmorphone INJ 0.5 MG/0.5 ML SYR IV PRN (18:27)
--- NOTE | 2021-04-24 19:10 | CT Scan Report ---
ABDOMEN AND PELVIS CT WITH IV AND ORAL CONTRAST CT DOSE: 548.08 mGy.cm HISTORY: Follow up study in a patient with acute sigmoid diverticulitis with abscess eval for worsen ing abscess TECHNIQUE: Multiaxial CT images of the abdomen and pelvis were performed following the IV administrat ion of 89 cc of Optiray and oral contrast. A dose lowering technique was utilized adhering to the pr inciples of TANYA. COMPARISON STUDY: 04/21/2021 FINDINGS: Small pleural effusions mild dependent bibasilar atelectasis. No pneumatosis or pneumoperit oneum. Mild splenomegaly, 13.8 cm. The pancreas, adrenal glands, gallbladder and liver appear unremar kable. 1.3 cm left hepatic lobe cyst. Patency of the hepatic and portal veins. Unremarkable kidneys. No hydronephrosis. Urinary bladder wall thickening with partial distention. Atherosclerosis of the ao rta without aneurysm. No adenopathy. Unremarkable IVC. No bowel obstruction. Acute sigmoid diverticulitis redemonstrated with moderate wall thickening and p ericolonic stranding. Small abscess adjacent to the sigmoid colon has matured with progressive wall t hickening measuring 2.6 x 2.0 cm, previously measured at 3.2 x 1.5 cm. Unremarkable soft tissues. Unc hanged grade 1 anterolisthesis L5 on S1 with chronic pars defects. No acute fracture. IMPRESSION: 1. Progressively worsened acute sigmoid diverticulitis. There is progressive maturation of the perisi gmoid abscess which has not increased in size measuring 2.6 x 2.0 cm. 2. Urinary bladder wall thickening is likely reactive secondary to the aforementioned abscess. Correl ate with urinalysis to exclude cystitis. 3. No bowel obstruction or pneumoperitoneum. 4. Small pleural effusions. ACT 112: Negative or not required by law. The above report was generated using voice recognition software. It may contain grammatical, syntax o r spelling errors. Electronically signed by: Bahman Quezada M.D. 04/24/2021 7:09 PM
[2021-04-24] MEDS: METOPROLOL TARTRATE 25 MG TAB PO SCH (21:09)
[2021-04-25] MEDS: SODIUM CHLORIDE 0.9% 1000ML 1,000 ML IV SCH ×3 (00:11→20:20)
[2021-04-25] MEDS: PANTOprazole 40 MG in SYRINGE 0 ML IV SCH ×3 (00:45→20:20)
[2021-04-25] MEDS: HYDROmorphone INJ 0.5 MG/0.5 ML SYR IV PRN (00:45)
[2021-04-25] MEDS: PIPERACILLIN/TAZOBACTAM 3.375 GM in DEXTROSE 5% 100 ML IV SCH ×3 (04:32→20:21)
[2021-04-25] MEDS: METOPROLOL TARTRATE 25 MG TAB PO SCH ×2 (08:03→20:22)
[2021-04-25] MEDS ORDERED: ACETAMINOPHEN 500 MG TAB PO PRN (11:19)
--- NOTE | 2021-04-25 12:22 | Surgery Progress Note ---
Date of Service April 25, 2021 Assessment & Plan (1) Acute diverticulitis: Plan: F/U acute diverticulitis with 3 cm abscess, pt is doing better, less abdominal pain, normal WBC, plan continue IV antibiotic, clear diet, will F/U, 04/25/2021 12: 20PM doing better plan continue IV antibiotic, full liquid diet, will F/U, Admission and Anticipated Discharge Date Admission Date: April 21, 2021 Subjective 04/25/2021 12: 20PM, pt said she is doing better, no abdominal pain, tolerated clear diet, Physical Exam Constitutional: WD/WN, vitals as above Eyes: PERRL, conjunctivae normal, anicteric sclerae Neck: trachea midline, no thyromegaly Respiratory: normal respiratory effort, lungs clear to auscultation Cardiovascular: RRR, no murmur, no edema Gastrointestinal (Abdomen): soft, NT, Nd, BS + Neurologic: patellar DTR's 2+ bilat, sensation intact Psychiatric: A+Ox3, euthymic affect Results & Data ([facility]) Vital Signs (Past 12 Hours) Vital Signs Temp Pulse Resp BP Pulse Ox 04/25/21 11:52 37.7 C H 81 16 134/77 95 04/25/21 07:34 36.8 C 88 16 113/67 91 04/25/21 04:38 37.1 C 106 H 18 129/82 93
--- NOTE | 2021-04-25 16:29 | Hospitalist Progress Note ---
Date of Service April 25, 2021 Assessment & Plan (1) Diverticulitis of large intestine with abscess: Plan: seen on imaging 04/21/21, surgery is following abscess 3x1.5 cm left lateral sigmoid colon continues on Zosyn 3.375 mg IV every 8 hours worsening abdominal pain with concern for worsening abscess with tachycardia, no leukocytosis, CT abdomen and pelvis visually reviewed by myself this shows worsened sigmoid diverticulitis with maturation of the perisigmoid abscess but not increased in size 2.6 x 2.0 cm We will reconvene with surgical consultation on 04/26/2021 Protonix 40 mg IV daily Acetaminophen 1 g IV every 8 hours as needed mild pain or fever Dilaudid 0.25 mg IV every 4 hours as needed for moderate and severe pain NSS at 100 mils per hour (2) Acute kidney injury: Plan: resolved with hydration (3) Anemia: Plan: pts hgb has drifted down, no sign of acute blood loss , maybe dilutional, will follow and continue iv ppi increased to bid (4) Hypertension: Plan: continue Holding furosemide, lisinopril, and spironolactone. using metoprolol to avoid rebound tachycardia will have metoprolol 25 mg bid po with small sip and iv Lopressor 5 mg IV every 4 hours as needed systolic blood pressure greater than 150 (5) Ankylosing spondylitis: Plan: Hold prednisone, diclofenac. Avoid stress dose steroids for now due to infection be wary of adrenal insufficiency (6) GERD (gastroesophageal reflux disease): Plan: Change pantoprazole from 40 mg p.o. every morning to IV (7) Hyperlipemia: Plan: Resume atorvastatin 80 mg in evening and able to take p.o. (8) Bladder spasm: Plan: Resume oxybutynin chloride 5 mg when able to take p.o. 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 difficile comes back gene positive toxin negative so therefore will have appropriate contact precautions but she is likely C. difficile carrier not having acute C. difficile colitis therefore will not institute any antibiotic treatment at this time. Once taking more robust p.o. we will include some probiotics in her oral regiment Admission and Anticipated Discharge Date Admission Date: April 21, 2021 Subjective 04/25/2021 12: 20PM, pt said she is doing better, no abdominal pain, tolerated clear diet, much improved than yesterday 04/24 Review of Systems Review of Systems: Mild distress and fatigue no headache, no visual changes no speech or swallowing issues no chest pain, pressure or palpitations no shortness of breath, cough or wheezes Feels abdominal pain worse with movement still with diarrhea no dysuria, hematuria or frequency no focal joint pain or swelling no back pain, CVA tenderness or radicular pain no bruising, bleeding or rashes no focal signs of weakness or numbness or altered sensation no complaints of anxiety or depression.. Physical Exam Physical Exam: The patient appeared well nourished and normally developed. Vital signs as documented. Head exam is normocephalic atraumatic Neck is without JVD, thyromegaly, or carotid bruits. Lungs are clear to auscultation, no focal loss of breath sounds Cardiac exam, Rhythm is regular.. No murmurs, rubs or gallops. Abdominal exam reveals normal bowel sounds, soft tender mostly in the left side Extremities are nonedematous and both pedal pulses are present Neurologic exam is alert and oriented, no focal loss of strength or sensation Skin is without bruises or rashes Psychologically is without concerns for anxiety or depression Results & Data Results & Data ([facility]) Vital Signs (Past 12 Hours) Vital Signs Temp Pulse Resp BP Pulse Ox 04/25/21 15:55 98.6 F 79 16 131/78 96 04/25/21 11:52 99.9 F H 81 16 134/77 95 04/25/21 07:34 98.2 F 88 16 113/67 91 04/25/21 04:38 98.8 F 106 H 18 129/82 93 PG Care Time/CCT Total # of Minutes Spent Total Time Spent with Patient: Total time spent is greater than 50% in coordination of care (as documented) at patient's floor/unit and/or counseling patient: Coding Level of Care Code 61360 Subseq Hosp Care Lvl 2 Diagnoses Diverticulitis of large intestine with abscess K57.20 Diverticulitis bleeding: unspecified bleeding status Acute kidney injury N17.9 Anemia D64.9 Hypertension I10 Ankylosing spondylitis M45.9 GERD (gastroesophageal reflux disease) K21.9 Hyperlipemia E78.5 Bladder spasm N32.89 Hypercalcemia E83.52 Clostridioides difficile carrier Z22.1 (1) Diverticulitis of large intestine with abscess Diverticulitis bleeding: unspecified bleeding status Qualified Code(s): K57.20 - Diverticulitis of large intestine with perforation and abscess without bleeding
[2021-04-25] MEDS: DICLOFENAC SODIUM 75 MG TABCR PO SCH (20:21)
[2021-04-26] MEDS: SODIUM CHLORIDE 0.9% 1000ML 1,000 ML IV SCH ×2 (05:13→15:35)
[2021-04-26] MEDS: PIPERACILLIN/TAZOBACTAM 3.375 GM in DEXTROSE 5% 100 ML IV SCH ×3 (05:13→19:46)
--- NOTE | 2021-04-26 07:01 | Surgery Progress Note ---
Date of Service April 26, 2021 Assessment & Plan (1) Diverticulitis of large intestine with abscess: Plan: Her CT scan 2 days ago did show some additional thickening of the sigmoid colon Her abscess was not worse than it had been previously I'm a little hesitant to quickly advance her diet and discharge her even though she does want to go home Sometimes depending on her bowel function patients need to be on PPN/TPN Although she seems to be doing better with her p.o. intake and GI function Continue IV antibiotics for now Check her white count this morning Admission and Anticipated Discharge Date Admission Date: April 21, 2021 Subjective Patient says she feels so much better Apparently tolerating some full liquids with bowel movements that are less loose Review of Systems Review of Systems: All systems reviewed & are unremarkable except as noted in HPI & below Physical Exam Physical Exam: Her abdomen is soft without significant distention Constitutional: well developed and well nourished; no acute distress Eyes: + anicteric sclerae Respiratory: normal respiratory effort; no respiratory distress Cardiovascular: Rate/Rhythm: regular rate Gastrointestinal (Abdomen): Inspection/Auscultation: abdomen normal to inspection; abdomen not distended Percussion/Palpation: abdomen soft Musculoskeletal: Head/Neck/Chest: head atraumatic Skin: no rashes, warm and dry Neurologic: awake Psychiatric: Orientation: alert Results & Data ([facility]) Vital Signs (Past 12 Hours) Vital Signs Temp Pulse Pulse Resp BP Pulse Ox 04/26/21 04:38 36.7 C 78 18 132/80 95 04/25/21 23:05 37.1 C 78 18 151/84 H 95 04/25/21 23:00 76 PG Care Time/CCT Total # of Minutes Spent Total Time Spent with Patient: Total time spent is greater than 50% in coordination of care (as documented) at patient's floor/unit and/or counseling patient: Coding Level of Care Code 61335 Inpt Consult Level 3 Diagnoses Diverticulitis of large intestine with abscess K57.20 Diverticulitis bleeding: unspecified bleeding status (1) Diverticulitis of large intestine with abscess Diverticulitis bleeding: unspecified bleeding status Qualified Code(s): K57.20 - Diverticulitis of large intestine with perforation and abscess without bleeding
[2021-04-26 07:29] LABS: Basophils # (auto) 0.02 K/uL (0-0.2); Basophils % (auto) 0.6 %; Eosinophils # (auto) 0.11 K/uL (0-0.5); Eosinophils % (auto) 3.1 %; Hematocrit (blood only) 23.5 % (37-47); Hemoglobin 7.6 g/dL (12.0-16.0); Immature Granulocytes # (auto) 0.05 K/uL (0.00-0.02); Immature Granulocytes % (auto) 1.4 %; Lymphocytes # (auto) 0.89 K/uL (1.2-3.4); Lymphocytes % (auto) 24.9 %; Mean Corpuscular Hemoglobin 29.5 pg (25-34); Mean Corpuscular Hgb Conc 32.3 g/dL (32-36); Mean Corpuscular Volume 91.1 fL (80-100); Mean Platelet Volume 8.4 fL (7.4-10.4); Monocytes # (auto) 0.38 K/uL (0.11-0.59); Monocytes % (auto) 10.6 %; Neutrophils # (auto) 2.12 K/uL (1.4-6.5); Neutrophils % (auto) 59.4 %; Platelet Count 238 K/uL (130-400); RDW Coefficient of Variation 15.9 % (11.5-14.5); RDW Standard Deviation 53.2 fL (36.4-46.3); Red Blood Count 2.58 M/uL (4.2-5.4); White Blood Count 3.57 K/uL (4.8-10.8)
[2021-04-26] MEDS: METOPROLOL TARTRATE 25 MG TAB PO SCH ×2 (07:47→19:52)
[2021-04-26] MEDS: DICLOFENAC SODIUM 75 MG TABCR PO SCH ×2 (07:47→19:51)
[2021-04-26] MEDS: PANTOprazole 40 MG in SYRINGE 0 ML IV SCH (07:48)
[2021-04-26 07:52] LABS: BUN Creatinine Ratio 3.7 (10-20); Calcium 8.1 mg/dl (8.5-10.1); Creatinine Clr Calc Pharmacy 61.6 ml/min; Est GFR (African American) 81.7 ml/min; Est GFR (Non-African American) 70.4 ml/min; Magnesium 1.6 mg/dl (1.8-2.4)
[2021-04-26 08:08] LABS: RBC Morphology Unremarkable
[2021-04-26] MEDS: POTASSIUM CHLORIDE 10 MEQ TABCR PO SCH ×3 (09:25→19:46)
[2021-04-26] MEDS: MAGNESIUM SULFATE / D5W 1 GM/100 ML BAG IV SCH ×2 (09:25→11:31)
[2021-04-26] MEDS: POTASSIUM CHLORIDE / WTR 10 MEQ/100 ML PLCT IV SCH ×4 (09:25→12:37)
[2021-04-26] MEDS: MAGNESIUM OXIDE 400 MG TAB PO SCH (09:28)
--- NOTE | 2021-04-26 17:50 | Hospitalist Progress Note ---
Date of Service April 26, 2021 Assessment & Plan (1) Diverticulitis of large intestine with abscess: Plan: Nuris is a 70-year-old female who presented with acute diverticulitis with abscess. Diverticulitis with abscess - seen on imaging 04/21/21, surgery is following - abscess 3x1.5 cm left lateral sigmoid colon - continues on Zosyn 3.375 mg IV every 8 hours. Augmentin reasonable once ready for PO downgrade. - Clinically improving ab pain, non on exam today. - Surgery following. Agree with slow advancement of diet given thickening of colon and abscess. - Protonix 40 mg IV daily - Acetaminophen 1 g IV every 8 hours as needed mild pain or fever - Dilaudid 0.25 mg IV every 4 hours as needed for moderate and severe pain - NSS at 100 mils per hour Potassium 3.0, repleted (2) Acute kidney injury: Plan: resolved with hydration (3) Anemia: Plan: No signs of active bleeding, downtrending hemoglobin? Dilutional Hemoglobin 7.6 today, transfusion threshold 7.0 Recheck hemoglobin every morning unless signs of bleeding, avoid iatrogenic anemia Normocytic (4) Hypertension: Plan: Resumed furosemide, lisinopril. May resume spironolactone if renal function remains stable and BP tolerating Resumed p.o. metoprolol - iv Lopressor 5 mg IV every 4 hours as needed systolic blood pressure greater than 150 (5) Ankylosing spondylitis: Plan: -Hold prednisone, diclofenac. 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 difficile comes back gene positive toxin negative so therefore will have appropriate contact precautions but she is likely C. difficile carrier not having acute C. difficile colitis therefore will not institute any antibiotic treatment at this time. Once taking more robust p.o. we will include some probiotics in her oral regiment Admission and Anticipated Discharge Date Admission Date: April 21, 2021 Subjective Seen at bedside this morning. Reports she feels well, tolerating full liquids without pain. Denies fever/chills/sweats. Denies abdominal pain today, prior pain greatly improved. Discussed CT scan results and abscess, and hesitation to advance overly quick and discharge despite patient wanting to go home. Discussed with surgical team, will continue to evaluate steadily advance diet and continue IV antibiotics at this time. Review of Systems Review of Systems: 10 point review of systems negative at bedside assessment today Physical Exam Physical Exam: General: A&Ox3. NAD. Cooperative. HEENT: Atraumatic, normocephalic. Visual acuity and hearing grossly intact. Pulm: CTAB A&P. -wheezes, -rales, -rhonchi. Symmetrical chest rise. No increase work of breathing. No respiratory distress. Cardiac: RRR, -mrg. Radial pulses intact and symmetrical. Abdominal: Nontender, nondistended, soft. BS present. Extremities: Moving all extremities equally. Sensation to soft touch in hands and feet intact and symmetrical. Results & Data Results & Data ([facility]) Vital Signs (Past 12 Hours) Vital Signs Temp Pulse Resp BP BP Pulse Ox 04/26/21 15:41 36.9 C 86 18 143/82 H 94 04/26/21 12:00 37.2 C 83 18 151/80 H 93 04/26/21 06:58 36.7 C 75 18 126/53 L 96 PG Care Time/CCT Total # of Minutes Spent Total Time Spent with Patient: Total time spent is greater than 50% in coordination of care (as documented) at patient's floor/unit and/or counseling patient: Coding Level of Care Code 72717 Subseq Hosp Care Lvl 3 Diagnoses Diverticulitis of large intestine with abscess K57.20 Diverticulitis bleeding: unspecified bleeding status Acute kidney injury N17.9 Anemia D64.9 Hypertension I10 Ankylosing spondylitis M45.9 GERD (gastroesophageal reflux disease) K21.9 Hyperlipemia E78.5 Bladder spasm N32.89 Hypercalcemia E83.52 Clostridioides difficile carrier Z22.1 (1) Diverticulitis of large intestine with abscess Diverticulitis bleeding: unspecified bleeding status Qualified Code(s): K57.20 - Diverticulitis of large intestine with perforation and abscess without bleeding
[2021-04-26] MEDS: PANTOprazole 40 MG TAB PO SCH (19:51)
[2021-04-26] MEDS ORDERED: Nursing to Pharmacy Communication SCH (20:45)
[2021-04-26] MEDS ORDERED: lisinopril 5 MG TAB PO SCH (21:00)
[2021-04-26] MEDS ORDERED: ATORVASTATIN 40 MG TAB PO SCH (21:00)
[2021-04-26] MEDS ORDERED: OXYBUTYNIN CHLORIDE 5 MG TAB PO SCH (21:00)
[2021-04-27] MEDS: SODIUM CHLORIDE 0.9% 1000ML 1,000 ML IV SCH (01:32)
[2021-04-27] MEDS: PIPERACILLIN/TAZOBACTAM 3.375 GM in DEXTROSE 5% 100 ML IV SCH (04:46)
[2021-04-27 06:43] LABS: Hematocrit (blood only) 23.1 % (37-47); Hemoglobin 7.5 g/dL (12.0-16.0); Mean Corpuscular Hemoglobin 29.8 pg (25-34); Mean Corpuscular Hgb Conc 32.5 g/dL (32-36); Mean Corpuscular Volume 91.7 fL (80-100); Mean Platelet Volume 8.6 fL (7.4-10.4); Platelet Count 257 K/uL (130-400); RDW Coefficient of Variation 16.2 % (11.5-14.5); RDW Standard Deviation 54.6 fL (36.4-46.3); Red Blood Count 2.52 M/uL (4.2-5.4); White Blood Count 4.05 K/uL (4.8-10.8)
[2021-04-27 07:10] LABS: BUN Creatinine Ratio 3.6 (10-20); Calcium 8.3 mg/dl (8.5-10.1); Creatinine Clr Calc Pharmacy 60.2 ml/min; Est GFR (African American) 79.3 ml/min; Est GFR (Non-African American) 68.5 ml/min; Potassium 3.5 mmol/L (3.5-5.1)
[2021-04-27] MEDS: METOPROLOL TARTRATE 25 MG TAB PO SCH (08:57)
[2021-04-27] MEDS: POTASSIUM CHLORIDE 10 MEQ TABCR PO SCH ×2 (08:58→13:26)
[2021-04-27] MEDS: MAGNESIUM OXIDE 400 MG TAB PO SCH (08:58)
[2021-04-27] MEDS: DICLOFENAC SODIUM 75 MG TABCR PO SCH (08:58)
[2021-04-27] MEDS: PANTOprazole 40 MG TAB PO SCH (08:58)
[2021-04-27] MEDS ORDERED: predniSONE 5 MG TAB PO SCH (09:00)
[2021-04-27] MEDS ORDERED: FUROSEMIDE 40 MG TAB PO SCH (09:00)
[2021-04-27] MEDS ORDERED: PANTOprazole 40 MG TAB PO SCH (09:00)
[2021-04-27] MEDS ORDERED: SPIRONOLACTONE 25 MG TAB PO SCH (09:00)
--- NOTE | 2021-04-27 09:36 | Surgery Progress Note ---
Date of Service April 27, 2021 Assessment & Plan (1) Diverticulitis of large intestine with abscess: Plan: She appears to be stable from a surgical standpoint and is tolerating her diet I would agree with Augmentin p.o. for at least 2 weeks I do believe she is a candidate for surgery and we did discuss the possibility Of her being seen by colorectal surgery and she would like this to be Analy Zhang The colorectal surgeons from [place] do come to [facility] Discharge will depend on her medical evaluation Admission and Anticipated Discharge Date Admission Date: April 21, 2021 Subjective Patient is awake and alert Her vital signs are stable Overall she had a drop in her hemoglobin but it has been stable She normally takes diuretics at home She has had no dark stools or melena Review of Systems Review of Systems: All systems reviewed & are unremarkable except as noted in HPI & below Physical Exam Physical Exam: Her abdomen is soft without significant distention Constitutional: well developed and well nourished; no acute distress Eyes: + anicteric sclerae Respiratory: normal respiratory effort; no respiratory distress Cardiovascular: Rate/Rhythm: regular rate Gastrointestinal (Abdomen): Inspection/Auscultation: abdomen normal to inspection; abdomen not distended Percussion/Palpation: abdomen soft Musculoskeletal: Head/Neck/Chest: head atraumatic Skin: no rashes, warm and dry Neurologic: awake Psychiatric: Orientation: alert Results & Data ([facility]) Vital Signs (Past 12 Hours) Vital Signs Temp Pulse Pulse Resp BP BP Pulse Ox 04/27/21 07:30 37.0 C 81 16 144/82 H 95 04/27/21 07:20 88 04/27/21 04:57 36.7 C 76 18 145/70 H 93 04/27/21 04:39 72 04/27/21 00:00 36.5 C 80 18 134/77 95 PG Care Time/CCT Total # of Minutes Spent Total Time Spent with Patient: Total time spent is greater than 50% in coordination of care (as documented) at patient's floor/unit and/or counseling patient: Coding Level of Care Code 66828 Inpt Consult Level 3 Diagnoses Diverticulitis of large intestine with abscess K57.20 Diverticulitis bleeding: unspecified bleeding status (1) Diverticulitis of large intestine with abscess Diverticulitis bleeding: unspecified bleeding status Qualified Code(s): K57.20 - Diverticulitis of large intestine with perforation and abscess without bleeding
--- NOTE | 2021-04-27 13:47 | Discharge Summary ---
Date of Service April 27, 2021 Admission HPI Per Admitting Provider The patient is a 70-year-old female with a past medical history including sigmoid diverticulitis, hypertension, anemia, arthritis, left hip trochanteric bursitis, hyperlipidemia, bladder spasm, GERD, and CHF. She presented to the outpatient office of her PCP with her usual symptoms of diverticulitis, and had outpatient laboratories and CT scan of abdomen pelvis performed. The CT scan of abdomen pelvis showed acute sigmoid diverticulitis and a 3.1 x 1.5 cm perforation/abscess fluid collection. Abnormal laboratories: WBC 10.29, hemoglobin 10.9, hematocrit 32.9, sodium 133, BUN 58, creatinine 2.44 and calcium 11.3. Patient was seen by general surgery Dr. Salmon while in the ED, who will be following along, with primary service being the medical service of [facility] group. Admission Exam Per Admitting Provider The patient is awake, alert and oriented 3, well developed and well nourished, normocephalic and atraumatic, lying in bed and in no acute distress. HEENT--PERRL, EOMI, mucous membranes and oropharynx mildly dry. Neck--supple. No JVD. No bruits. Thyroid normal, trachea midline, no adenopathy. Heart--normal S1 and S2. No murmurs, rubs or gallops. Lungs--clear bilaterally, no respiratory distress, no accessory muscle use. Abdomen--decreased bowel sounds. Mildly firm. Mildly tender. Mildly distended Extremities--no cyanosis or clubbing. No edema. Dermatologic--normal skin turgor, normal color, no abnormal lymph nodes, no rash. Neurologic--cranial nerves II through XII grossly intact. Rheumatologic--normal range of motion. Psychiatric--normal affect. Principal Diagnosis Acute diverticulitis with abscess Discharge Exam General: A&Ox3. NAD. Cooperative. HEENT: Atraumatic, normocephalic. Visual acuity and hearing grossly intact. Pulm: CTAB A&P. -wheezes, -rales, -rhonchi. Symmetrical chest rise. No increase work of breathing. No respiratory distress. Cardiac: RRR, -mrg. Radial pulses intact and symmetrical. Abdominal: Nontender, nondistended, soft. BS present. Extremities: Moving all extremities equally. Sensation to soft touch in hands and feet intact and symmetrical. Discharge Data Allergies Allergy/AdvReac Type Severity Reaction Status Date / Time adhesive Allergy Unknown BLISTERS Verified 04/21/21 18:20 aspirin Allergy Unknown HIVES Verified 04/21/21 18:20 celecoxib Allergy Unknown HIVES Verified 04/21/21 18:20 ibuprofen Allergy Unknown HIVES Verified 04/21/21 18:20 naproxen Allergy Unknown HIVES Verified 04/21/21 18:20 piroxicam Allergy Unknown HIVES Verified 04/21/21 18:20 Sulfa (Sulfonamide Allergy Unknown VOMITING/HI Verified 04/21/21 18:20 Antibiotics) VES tetracycline Allergy Unknown HIVES?, Verified 04/21/21 18:20 ANXIETY Consultations 04/21/21 17:44 Consult General Surgery Stat ED Decision to Admit Stat Ordered Studies 04/24/21 12:21 CT abd pelvis oral and IV con Routine Hospital Course (1) Diverticulitis of large intestine with abscess: Nuris is a 70-year-old female who presented with acute diverticulitis with abscess. She was treated with antibiotic therapy, reimaging showed improving abscess with residual inflammation during admission. Patient preferred outpatient follow-up with discharge soon as possible, wrist/benefits were reviewed and unsure decision making was discharged home with close follow- up to PCP and colorectal surgery. Critical to do as outpatient: 1. Patient with downtrending hemoglobin which stabilized day of discharge but was not yet uptrending. Patient strongly insistent on discharge, agreeable to follow-up with PCP within 48 hours, repeat CBC to ensure stability and return if any symptoms/signs of active bleeding develop 2. Complete 2-week course of Augmentin treatment, extension if needed based on clinical progression 3. Follow-up with colorectal surgery in [facility]. Patient did not require acute surgical intervention as inpt, but is a followup surgical candidate for followup per [facility] general surgery. Diverticulitis with abscess - seen on imaging 04/21/21, surgery consulted - abscess 3x1.5 cm left lateral sigmoid colon - continues on Zosyn 3.375 mg IV every 8 hours. Augmentin reasonable once ready for PO downgrade. - Clinically improving ab pain, no pain x48 hours within discharge - Surgery following. Diet slowly progressed to regular, patient remained clinically well - Protonix 40 mg IV daily converted to Protonix p.o. daily on discharge - Acetaminophen 1 g IV every 8 hours as needed mild pain or fever - Dilaudid 0.25 mg IV every 4 hours as needed for moderate and severe pain, no pain on day of discharge (2) Acute kidney injury: resolved with hydration (3) Anemia: Patient with no signs of active bleeding during admission but a hemoglobin which decreased from prior baseline of 10-7.6 and remained stable without active bleeding -Without signs of active bleeding suspected improved diverticular bleed compounded with delusional from aggressive fluids Recommended additional observation until uptrending, patient preferred outpatient follow-up within 48 hours for repeat CBC Normocytic (4) Hypertension: Furosemide, lisinopril, spironolactone held for SANDRA and resumed once normalized Continue p.o. metoprolol - iv Lopressor 5 mg IV every 4 hours as needed systolic blood pressure greater than 150. Was not needed during admission (5) Ankylosing spondylitis: -Hold prednisone, diclofenac. 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 difficile comes back gene positive toxin negative so therefore will have appropriate contact precautions but she is likely C. difficile carrier not having acute C. difficile colitis therefore will not institute any antibiotic treatment at this time. Once taking more robust p.o. we will include some probiotics in her oral regiment Total Time Total Time Spent Total Time Spent (In Minutes): Total time spent day of discharge including documentation, coordination of care, and direct patient care 45 minutes. Discharge Plan Discharge Items Patient Disposition: Home - Self-Care Reason For Visit: ACUTE SIG DIVERTICULITIS WITH PERF/ABSCESS Discharge Diagnosis: Acute diverticulitis with abscess Activity: Per Instructions section Non-emergency contact: Primary Care Provider Call non-emergency contact if: you have any medication questions, your symptoms worsen and you have a fever Follow-up/Referrals: Sahil Morales MD [Primary Care Provider] - Diet: Regular Addtl Attending Provider Instructions: You are seen in the hospital for acute diverticulitis with abscess. You clinically improved with antibiotics, and have been prescribed antibiotics on discharge as noted below. Your blood levels (hemoglobin) decreased and then remained stable during admission, and did not decrease to the point of requiring a blood transfusion. The risk/benefits of remaining in the hospital for further blood count monitoring were discussed, on shared decision making he preferred to return home with close follow-up to your primary care provider. You have been prescribed an antibiotic, Augmentin. Please take Augmentin 875/125 mg (1 tab) by mouth twice daily for 14 days. Your primary care provider or retail account manager may recommend an extension of this course based on your clinical progression and follow-up. Your prednisone and clofenamide have been temporarily held, and these can contribute to GI bleeding and your risk of bowel perforation. Please discuss when it is safe to resume these medications at your follow-up appointment. Follow-up is being scheduled for you with colorectal surgery at [facility]. You should be seen within 2 weeks. If you do not receive a call to confirm your appointment within 48 hours, please call their office at . You were seen by general surgery while at [facility] and while you did not require acute invention during time of hospitalization, you are a candidate for surgery and should be followed closely as an outpatient. A follow-up appointment is being scheduled for you with your primary care provider. You should hear confirmation of this appoint within 48 hours, and should be seen within 2-3 days. You should have a repeat CBC (blood level) performed within 2 to 3 days. If you do not hear from your primary care physician regarding an appointment, please contact his office at [phone]. If you develop any new or worsening symptoms including fever, chills, sweats, chest pain, chest pressure, difficulty breathing, uncontrolled nausea/vomiting, rash, wheezing, passing out or nearly passing out, bleeding, black/bloody bowel movements, or other new or concerning symptoms please call your primary care physician at [phone], or call 911 for re-evaluation in the emergency department if you are very concerned. Pending Studies at Discharge: Yes Stand-Alone Forms: [employer] [facility], Smoking Cessation Medications and DC Order Prescriptions: New amoxicillin-pot clavulanate [Augmentin] 875-125 mg Tablet 1 tab PO BIDM 10 Days Qty: 20 RF: 0 Continued multivitamin Tablet 1 tab PO QAM Qty: 0 RF: 0 atorvastatin 80 mg Tablet 80 mg PO QPM Qty: 0 RF: 0 pantoprazole 40 mg Tablet,Delayed Release (Dr/Ec) 40 mg PO QAM Qty: 30 RF: 0 metoprolol tartrate 50 mg Tablet 75 mg PO BID Qty: 0 RF: 0 oxybutynin chloride 5 mg Tablet 5 mg PO QPM Qty: 0 RF: 0 calcium citrate-vitamin D3 250 mg-5 mcg (200 unit) Tablet 1 tab PO QAM RF: 0 lisinopril 5 mg tablet 5 mg PO QPM RF: 0 furosemide 40 mg tablet 40 mg PO QAM RF: 0 spironolactone 25 mg tablet 25 mg PO QAM RF: 0 Discontinued diclofenac sodium 75 mg Tablet,Delayed Release (Dr/Ec) 75 mg PO BID Qty: 0 RF: 0 prednisone 10 mg tablet 5 mg PO DAILY RF: 0 Discharge Orders: Discharge Order (Routine); Ordered 04/27/21 Ordered By: Peng Gillespie Admission Data Admit Date/Time: 04/21/21 18:32 Attending Provider: Peng Gillespie Admit Provider: Goldy Adams Primary Care Provider: Sahil Morales Other Providers: Irvin Salmon ; Goldy Adams Other Interventions: Discharge Summary Assessment (RN) Last Done: 04/27/21 14:25 Coding Level of Care Code D/C DAY MANAGEMENT >30 MINS Diagnoses Diverticulitis of large intestine with abscess K57.20 Diverticulitis bleeding: unspecified bleeding status Acute kidney injury N17.9 Anemia D64.9 Hypertension I10 Ankylosing spondylitis M45.9 GERD (gastroesophageal reflux disease) K21.9 Hyperlipemia E78.5 Bladder spasm N32.89 Hypercalcemia E83.52 Clostridioides difficile carrier Z22.1
[2021-04-27] MEDS ORDERED: AMOXICILLIN/CLAVULANATE 875 MG TAB PO SCH (17:00)
== END 2021-04-27 15:43 | disposition home or self-care (01) | DRG 392 ==
LOC: ED 17:04 → 2W 18:32 → SUATTDRO 18:32 → 2W 21:18

== ENCOUNTER 2025-06-14 19:42 | Inpatient (IN) ==
[2025-06-14] MEDS: SODIUM CHLORIDE 0.9% 500 ML IV ONE (20:00)
[2025-06-14] MEDS: MoRPHine SULFATE 4 MG/ML 1 ML CARP\\VIAL IV STA (20:01)
[2025-06-14] MEDS: ONDANSETRON INJ 2 MG/ML 2 ML VIAL IV STA (20:01)
--- NOTE | 2025-06-14 20:05 | Emergency Department Note ---
Impression & Plan Sigmoid diverticulitis, Abscess of sigmoid colon, Leukocytosis, Acute hypokalemia ED Provider Note HISTORY OF PRESENT ILLNESS: Patient is a 74-year-old female presenting with left lower quadrant abdominal pain. Patient reports she woke up in the middle of the night last night with pain in her left lower quadrant. She states that the pain continued to worsen throughout the day today. She had a fever of 102 yesterday. She states she had a fever of 101 earlier this afternoon but did not take anything for it. She states this feels similar to her prior episodes of diverticulitis. Denies any nausea, vomiting or diarrhea. She reports an abdominal surgical history significant for hysterectomy. Denies any chest pain or shortness of breath. Denies any dysuria or hematuria. ROS: as above PHYSICAL EXAM: Constitutional: Patient appears in no acute distress. HENT: Head: Normocephalic and atraumatic. Eyes: EOMI, PERRL Mouth/Throat: Mucous membranes moist. Neck: Trachea midline. Neck supple. Cardiovascular: RRR, No murmurs, rubs or gallops. Intact distal pulses. Pulmonary/Chest: No respiratory distress. Breath sounds clear and equal bilaterally. No wheezes or rales. Abdominal: Abdomen soft, no rebound or guarding. LLQ TTP Musculoskeletal: No edema, tenderness or deformity noted. Skin: Warm and dry. No rash, erythema, pallor or cyanosis Psychiatric: Appropriate mood and affect for situation. Neurological: Alert and keenly responsive. CN II-XII grossly intact, moving all extremities equally and fully. MDM: - Vitals signs showed hypertension - History obtained via patient. History as above. - Chronic conditions affecting care: HTN; HLD; anemia - Differential diagnoses include, but are not limited to: diverticulitis; ischemic colitis; colonic abscess; bowel obstruction; ureteral calculi - Order placed for continuous cardiac monitoring. At this time, monitor showed rate of 67 bpm with normal sinus rhythm, per my interpretation. - External medical records reviewed. Discharge summary dated 04/27/2021 was reviewed. Patient was admitted that time for acute diverticulitis with abscess. - Laboratory workup interpreted by myself showed leukocytosis (WBC 12.12) with neutrophil predominance; hypokalemia (K 3.0); normal creatinine; normal lactic acid; normal AST/ALT; elevated total bilirubin (1.2); normal lipase - Patient given 500 cc NS, 4 mg IV morphine and 4 mg IV zofran for symptomatic management - CT abdomen/pelvis with IV contrast showed rim-enhancing fluid collection posterior to the sigmoid colon measuring 2.5 x 5.5 x 3 cm posterior to the proximal and mid sigmoid segment. Noted to have sigmoid diverticulitis. Radiology suspects sigmoid diverticulitis with adjacent incompletely organized abscess versus peritonitis. - IV zosyn administered. - Discussed case with general surgery ANT at 22:38. Will be down to see the patient. Recommended medicine admission. - Discussion was had with caser in about patient's case and need for admission - Hospitalist consulted for admission - Patient admitted to [facility] for further evaluation and management. 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 Ankylosing spondylitis GERD (gastroesophageal reflux disease) Hypertension Hyperlipemia Osteoarthritis History of palpitations Arrhythmia HX OF TACHYCARDIA Surgical History H/O tubal ligation Hx of lumpectomy LEFT BREAST Hx of hysterectomy Hx of colonoscopy Hx of cataract surgery RIGHT AND LEFT Hx of varicose vein ligation RLE Social History Smoking Status: Former smoker Second Hand Exposure: No; Do You Dip or Chew Tobacco: No; Hx Alcohol Use: Yes Alcohol type: wine Hx Substance Use: No Preferred Language: Georgian Communication Ability: Effective Visual Impairment: No Limitations 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 Required: No Beliefs That Will Affect Care: None marital status: / Current Living Situation: Alone Feels Safe at Home: Yes Assistive Devices: None Allergies Allergies Allergy/AdvReac Type Severity Reaction Status Date / Time adhesive Allergy Unknown BLISTERS Verified 01/28/25 18:37 aspirin Allergy Unknown HIVES Verified 01/28/25 18:37 celecoxib Allergy Unknown HIVES Verified 01/28/25 18:37 ibuprofen Allergy Unknown HIVES Verified 01/28/25 18:37 naproxen Allergy Unknown HIVES Verified 01/28/25 18:37 piroxicam Allergy Unknown HIVES Verified 01/28/25 18:37 Sulfa (Sulfonamide Allergy Unknown VOMITING/HI Verified 01/28/25 18:37 Antibiotics) VES tetracycline Allergy Unknown HIVES?, Verified 01/28/25 18:37 ANXIETY Home Meds Home Medications Medication Instructions Recorded Confirmed atorvastatin 80 mg tablet 80 mg PO QPM #0 tabs 02/22/18 01/28/25 metoprolol tartrate 50 mg tablet 50 mg PO BID #0 tabs 02/22/18 01/28/25 oxybutynin chloride 5 mg tablet 5 mg PO QPM #0 tabs 02/22/18 01/28/25 pantoprazole 40 mg tablet,delayed 40 mg PO QAM #30 tabs 02/22/18 01/28/25 release furosemide 40 mg tablet 40 mg PO QAM 04/21/21 01/28/25 lisinopril 5 mg tablet 5 mg PO QPM 04/21/21 01/28/25 acetaminophen 500 mg tablet 500 mg PO HS 01/28/25 01/28/25 acetaminophen 650 mg 650 mg PO QAM 01/28/25 01/28/25 tablet,extended release (Tylenol Arthritis Pain) uxbfflrl-oljsaje-frkb-lutein tablet 1 tab PO QAM 01/28/25 01/28/25 potassium chloride 10 mEq 10 meq PO BID 01/28/25 01/28/25 capsule,extended release prednisone 5 mg tablet 5 mg PO QAM 01/28/25 01/28/25 Results & Data (ED) Vital Signs Vital Signs - 24 hr 06/14/25 19:44 06/14/25 19:55 06/14/25 19:59 Temperature 36.8 C Temperature Source Temporal Artery Scan Pulse Rate 81 Pulse Rate [Right Finger] Pulse Rate from SpO2 Sensor Pulse Rhythm Regular Pulse Rhythm [Right Finger] Pulse Strength Normal Pulse Strength [Right Finger] Respiratory Rate 20 Respiratory Effort / Characteristics Non-Labored Spontaneous Respiratory Depth Normal Respiratory Pattern Regular Blood Pressure 211/83 H 185/99 H Blood Pressure [Right Arm] Blood Pressure Mean 125 118 Blood Pressure Mean [Right Arm] Blood Pressure Position Sitting Blood Pressure Position [Right Arm] Pulse Oximetry 94 95 Oxygen Delivery Method Room Air Room Air Oxygen Flow Rate Sepsis Recent Fever Within 48 Hours Yes Sepsis New/Unexplained Change in Mental Status N/A Sepsis Action Taken by Nursing No Action Required 06/14/25 20:00 06/14/25 20:00 06/14/25 20:00 Temperature Temperature Source Pulse Rate 80 Pulse Rate [Right Finger] Pulse Rate from SpO2 Sensor 81 Pulse Rhythm Pulse Rhythm [Right Finger] Pulse Strength Pulse Strength [Right Finger] Respiratory Rate 27 H Respiratory Effort / Characteristics Respiratory Depth Respiratory Pattern Blood Pressure 159/99 H 159/99 H Blood Pressure [Right Arm] Blood Pressure Mean 115 115 Blood Pressure Mean [Right Arm] Blood Pressure Position Blood Pressure Position [Right Arm] Pulse Oximetry 96 Oxygen Delivery Method Oxygen Flow Rate Sepsis Recent Fever Within 48 Hours Sepsis New/Unexplained Change in Mental Status Sepsis Action Taken by Nursing 06/14/25 20:00 06/14/25 20:00 06/14/25 20:00 Temperature Temperature Source Pulse Rate Pulse Rate [Right Finger] Pulse Rate from SpO2 Sensor Pulse Rhythm Pulse Rhythm [Right Finger] Pulse Strength Pulse Strength [Right Finger] Respiratory Rate Respiratory Effort / Characteristics Respiratory Depth Respiratory Pattern Blood Pressure 159/99 H 159/99 H 159/99 H Blood Pressure [Right Arm] Blood Pressure Mean 115 115 115 Blood Pressure Mean [Right Arm] Blood Pressure Position Blood Pressure Position [Right Arm] Pulse Oximetry Oxygen Delivery Method Oxygen Flow Rate Sepsis Recent Fever Within 48 Hours Sepsis New/Unexplained Change in Mental Status Sepsis Action Taken by Nursing 06/14/25 20:03 06/14/25 20:12 06/14/25 20:21 Temperature Temperature Source Pulse Rate 77 74 71 Pulse Rate [Right Finger] Pulse Rate from SpO2 Sensor 73 71 Pulse Rhythm Pulse Rhythm [Right Finger] Pulse Strength Pulse Strength [Right Finger] Respiratory Rate 17 13 Respiratory Effort / Characteristics Respiratory Depth Respiratory Pattern Blood Pressure Blood Pressure [Right Arm] Blood Pressure Mean Blood Pressure Mean [Right Arm] Blood Pressure Position Blood Pressure Position [Right Arm] Pulse Oximetry 91 92 Oxygen Delivery Method Oxygen Flow Rate Sepsis Recent Fever Within 48 Hours Sepsis New/Unexplained Change in Mental Status Sepsis Action Taken by Nursing 06/14/25 20:30 06/14/25 20:30 06/14/25 20:30 Temperature Temperature Source Pulse Rate Pulse Rate [Right Finger] Pulse Rate from SpO2 Sensor Pulse Rhythm Pulse Rhythm [Right Finger] Pulse Strength Pulse Strength [Right Finger] Respiratory Rate Respiratory Effort / Characteristics Respiratory Depth Respiratory Pattern Blood Pressure 144/75 H 144/75 H 144/75 H Blood Pressure [Right Arm] Blood Pressure Mean 97 97 97 Blood Pressure Mean [Right Arm] Blood Pressure Position Blood Pressure Position [Right Arm] Pulse Oximetry Oxygen Delivery Method Oxygen Flow Rate Sepsis Recent Fever Within 48 Hours Sepsis New/Unexplained Change in Mental Status Sepsis Action Taken by Nursing 06/14/25 20:30 06/14/25 20:30 06/14/25 20:30 Temperature Temperature Source Pulse Rate 72 Pulse Rate [Right Finger] Pulse Rate from SpO2 Sensor 72 Pulse Rhythm Pulse Rhythm [Right Finger] Pulse Strength Pulse Strength [Right Finger] Respiratory Rate 22 Respiratory Effort / Characteristics Respiratory Depth Respiratory Pattern Blood Pressure 144/75 H 144/75 H Blood Pressure [Right Arm] Blood Pressure Mean 97 97 Blood Pressure Mean [Right Arm] Blood Pressure Position Blood Pressure Position [Right Arm] Pulse Oximetry 91 Oxygen Delivery Method Oxygen Flow Rate Sepsis Recent Fever Within 48 Hours Sepsis New/Unexplained Change in Mental Status Sepsis Action Taken by Nursing 06/14/25 20:42 06/14/25 20:51 06/14/25 21:18 Temperature Temperature Source Pulse Rate 71 71 Pulse Rate [Right Finger] Pulse Rate from SpO2 Sensor 70 70 76 Pulse Rhythm Pulse Rhythm [Right Finger] Pulse Strength Pulse Strength [Right Finger] Respiratory Rate 12 13 Respiratory Effort / Characteristics Respiratory Depth Respiratory Pattern Blood Pressure Blood Pressure [Right Arm] Blood Pressure Mean Blood Pressure Mean [Right Arm] Blood Pressure Position Blood Pressure Position [Right Arm] Pulse Oximetry 90 88 L 89 L Oxygen Delivery Method Oxygen Flow Rate Sepsis Recent Fever Within 48 Hours Sepsis New/Unexplained Change in Mental Status Sepsis Action Taken by Nursing 06/14/25 21:19 06/14/25 21:19 06/14/25 21:20 Temperature Temperature Source Pulse Rate Pulse Rate [Right Finger] 76 Pulse Rate from SpO2 Sensor Pulse Rhythm Pulse Rhythm [Right Finger] Regular Pulse Strength Pulse Strength [Right Finger] Normal Respiratory Rate 21 Respiratory Effort / Characteristics Non-Labored Respiratory Depth Normal Respiratory Pattern Regular Blood Pressure 143/67 H 143/67 H Blood Pressure [Right Arm] 143/67 H Blood Pressure Mean 93 93 Blood Pressure Mean [Right Arm] 92 Blood Pressure Position Blood Pressure Position [Right Arm] Sitting Pulse Oximetry 97 Oxygen Delivery Method Room Air Oxygen Flow Rate Sepsis Recent Fever Within 48 Hours Sepsis New/Unexplained Change in Mental Status Sepsis Action Taken by Nursing 06/14/25 21:21 06/14/25 21:54 Temperature Temperature Source Pulse Rate 67 Pulse Rate [Right Finger] Pulse Rate from SpO2 Sensor Pulse Rhythm Pulse Rhythm [Right Finger] Pulse Strength Pulse Strength [Right Finger] Respiratory Rate 19 Respiratory Effort / Characteristics Respiratory Depth Respiratory Pattern Blood Pressure Blood Pressure [Right Arm] Blood Pressure Mean Blood Pressure Mean [Right Arm] Blood Pressure Position Blood Pressure Position [Right Arm] Pulse Oximetry 96 Oxygen Delivery Method Nasal Cannula Oxygen Flow Rate 1 Sepsis Recent Fever Within 48 Hours Sepsis New/Unexplained Change in Mental Status Sepsis Action Taken by Nursing Laboratory Data 06/14/25 20:00 06/14/25 20:00 Lab Results 06/14/25 06/14/25 Range/Units 20:00 21:07 WBC 12.12 H (4.8-10.8) K/ul RBC 5.05 (4.20-5.40) M/uL Hgb 15.3 (12.0-16.0) g/dL Hct 45.4 (37.0-47.0) % MCV 89.9 (80.0-100.0) fL MCH 30.3 (25.0-34.0) pg MCHC 33.7 (32.0-36.0) g/dL RDW Std Deviation 46.9 H (36.4-46.3) fL RDW Coeff of [place] 14.2 (11.5-14.5) % Plt Count 192 (130-400) K/uL MPV 9.8 (9.4-12.4) fL Immature Gran % (Auto) 0.3 % Neut % (Auto) 81.2 % Lymph % (Auto) 10.1 % [place] % (Auto) 8.0 % Eos % (Auto) 0.2 % Baso % (Auto) 0.2 % Neut # (Auto) 9.84 H (1.40-6.50) K/uL Lymph # (Auto) 1.23 (1.20-3.40) K/uL [place] # (Auto) 0.97 H (0.11-0.59) K/uL Eos # (Auto) 0.02 (0.00-0.50) K/uL Baso # (Auto) 0.02 (0.00-0.20) K/uL Immature Gran # (Auto) 0.04 (0.01-0.20) K/uL Sodium 140 (136-145) mmol/L Potassium 3.0 L (3.5-5.1) mmol/L Chloride 99 (98-107) mmol/L Carbon Dioxide 30 (21-32) mmol/L Anion Gap 11 (3-11) BUN 16 (6-23) mg/dl Creatinine 0.89 (0.6-1.2) mg/dl Est Cr Clr Drug Dosing 50.9 ml/min eGFR 67.15 BUN/Creatinine Ratio 18.0 (10-20) Glucose 116 H (70-99(Fasting)) mg/dl Lactate 1.3 (0.4-2.0) mmol/L Calcium 9.8 (8.6-10.3) mg/dl Total Bilirubin 1.2 H (0.2-1.0) mg/dl AST 25 (13-39) U/L ALT 20 (7-52) U/L Alkaline Phosphatase 61 (34-104) U/L Total Protein 7.7 (6.0-8.3) gm/dl Albumin 4.1 (3.4-5.0) gm/dl Globulin 3.6 (2.5-4.0) gm/dl Albumin/Globulin Ratio 1.1 (0.9-2) Lipase 12 (11-82) U/L Urine Color Yellow Urine Appearance Clear (Clear) Urine pH 6.5 (4.5-7.5) Ur Specific [place] 1.014 (1.000-1.030) Urine Protein Negative (Negative) Urine Glucose (UA) Negative (Negative) Urine Ketones Trace H (Negative) Urine Blood Trace H (Negative) Urine Nitrite Negative (Negative) Urine Bilirubin Negative (Negative) Urine Urobilinogen Negative (Negative) Ur Leukocyte Esterase 2+ H (Negative) Urine WBC (Auto) 21-50 H (0-5) /hpf Urine RBC (Auto) 3-5 H (0-2) /hpf U Hyaline Cast (Auto) 0-2 (0-2) /lpf U Epithel Cells (Auto) 0-2 (0-2) /hpf Urine Bacteria (Auto) None Seen (None Seen) Urine Comment Administered Medications Discontinued Medications Sodium Chloride (Nss) 500 mls @ 999 mls/hr IV .Q31M ONE Stop: 06/14/25 20:27 Last Infusion: 06/14/25 21:52 Dose: Infused Documented By: navneet Admin: 06/14/25 20:00 Dose: 999 mls/hr Documented By: ISAIAS Ioversol (Optiray 320 100ml) 90 ml IV ONCE ONE Stop: 06/14/25 21:12 Last Admin: 06/14/25 21:12 Dose: 90 ml Documented By: SALIMA Morphine Sulfate (Morphine Sulfate 4 Mg/Ml 1 Ml Carp\Vial) 4 mg IV NOW STA Stop: 06/14/25 19:58 Last Admin: 06/14/25 20:01 Dose: 4 mg Documented By: ISAIAS Ondansetron HCl (Ondansetron Inj 2 Mg/Ml 2 Ml Vial) 4 mg IV NOW STA Stop: 06/14/25 19:58 Last Admin: 06/14/25 20:01 Dose: 4 mg Documented By: ISAIAS Imaging Data Radiologist's Impression: Abdomen/Pelvis CT 06/14/25 19:50 Exam(s): CT ABDOMEN + PELVIS With Contrast IV Amt: 90 ml optiray 320 EXAM: CT Abdomen and Pelvis With Intravenous Contrast CLINICAL HISTORY: abd pain; fever. TECHNIQUE: Axial computed tomography images of the abdomen and pelvis with intravenous contrast. CTDI is 26.96 mGy and DLP is 1072.69 mGy-cm. Automated exposure control was utilized for the study. A dose lowering technique was utilized adhering to the principles of ALARA. CONTRAST: Patient received 90 ml optiray 320 of IV contrast COMPARISON: CT Abdomen Pelvis dated 01/28/2025 FINDINGS: Lung bases: No significant abnormality. No mass. No consolidation. ABDOMEN: Liver: Low attenuation foci in the liver which may be due to cysts but are too small to characterize. Gallbladder and bile ducts: No significant abnormality. No calcified stones. No ductal dilation. Pancreas: No significant abnormality. No mass. No ductal dilation. Spleen: No significant abnormality. No splenomegaly. Adrenals: No significant abnormality. No mass. Kidneys and ureters: No significant abnormality. No solid mass. No hydronephrosis. Stomach and bowel: No evidence for focal high-grade bowel obstruction. No small bowel mucosal abnormality. Moderate stool burden throughout the colon. The sigmoid colon is decompressed with extensive diverticulosis. There is pericolonic fat stranding adjacent to the proximal to mid sigmoid segment. PELVIS: Appendix: Not clearly identified. No findings to suggest acute appendicitis. Bladder: No significant abnormality. No mass. Reproductive: Status post hysterectomy. ABDOMEN and PELVIS: Intraperitoneal space: Abnormal partially rim enhancing fluid collection posterior to the sigmoid colon measuring 2.5 x 5.5 x 3 cm posterior to the proximal and mid sigmoid segment. No free air. Bones/joints: 7 mm anterolisthesis involving L5 on S1 secondary to bilateral L5 spondylolysis. Multilevel degenerative changes throughout the lumbar spine, most prominent involving L1-2 and L2-3, stable in appearance. No acute fracture. No dislocation. Soft tissues: No significant abnormality. Vasculature: Atherosclerotic disease. No abdominal aortic aneurysm. Lymph nodes: No significant abnormality. No enlarged lymph nodes. IMPRESSION: Abnormal partially rim enhancing fluid collection posterior to the sigmoid colon measuring 2.5 x 5.5 x 3 cm posterior to the proximal and mid sigmoid segment. There is mucosal thickening with regional diverticula of the decompressed sigmoid colon. Suspect sigmoid diverticulitis with adjacent incompletely organized abscess versus peritonitis. Electronically signed by: Ramon Fernández MD 06/14/25 22:36 PM Discharge Plan Visit Data Chief Complaint: Abdominal Pain Stated Complaint: FEVER, STOMACH, PROBABLE DIVERTICULITIS ED Provider: Marilynn Rodriguez Discharge Problem: Sigmoid diverticulitis, Abscess of sigmoid colon, Leukocytosis, Acute hypokalemia Patient Disposition: Admitted As Inpatient Condition: Fair Forms Stand Alone Forms: My [facility] Prescriptions Prescriptions: No Action atorvastatin 80 mg Tablet 80 mg PO QPM Qty: 0 pantoprazole 40 mg Tablet,Delayed Release (Dr/Ec) 40 mg PO QAM Qty: 30 metoprolol tartrate 50 mg Tablet 50 mg PO BID Qty: 0 oxybutynin chloride 5 mg Tablet 5 mg PO QPM Qty: 0 lisinopril 5 mg tablet 5 mg PO QPM furosemide 40 mg tablet 40 mg PO QAM potassium chloride 10 mEq capsule, extended release 10 meq PO BID prednisone 5 mg tablet 5 mg PO QAM acetaminophen [Tylenol Ex Str Rapid Release] 500 mg Tablet 500 mg PO HS acetaminophen [Tylenol Arthritis Pain] 650 mg Tablet Extended Release 650 mg PO QAM Centrum Silver Ultra Women's Tablet 1 tab PO QAM Referrals Referrals: Jessica Morales MD [Primary Care Provider] -
[2025-06-14 20:32] LABS: Hematocrit (blood only) 45.4 % (37.0-47.0); Hemoglobin 15.3 g/dL (12.0-16.0); Immature Granulocytes # (auto) 0.04 K/uL (0.01-0.20); Immature Granulocytes % (auto) 0.3 %; Mean Corpuscular Hemoglobin 30.3 pg (25.0-34.0); Mean Corpuscular Volume 89.9 fL (80.0-100.0); Platelet Count 192 K/uL (130-400); RDW Standard Deviation 46.9 fL (36.4-46.3); Red Blood Count 5.05 M/uL (4.20-5.40); White Blood Count 12.12 K/ul (4.8-10.8)
[2025-06-14 20:52] LABS: Alanine Aminotransferase 20.0 U/L (7-52); Albumin Globulin Ratio 1.1 (0.9-2); Albumin Level 4.1 gm/dl (3.4-5.0); Alkaline Phosphatase 61.0 U/L (34-104); Anion Gap 11.0 (3-11); Bilirubin,Total 1.2 mg/dl (0.2-1.0); Blood Urea Nitrogen 16.0 mg/dl (6-23); Calcium 9.8 mg/dl (8.6-10.3); Carbon Dioxide 30.0 mmol/L (21-32); Chloride 99.0 mmol/L (98-107); Creatinine Clr Calc Pharmacy 50.9 ml/min; Globulin 3.6 gm/dl (2.5-4.0); Glucose 116.0 mg/dl (70-99(Fasting)); Lipase 12.0 U/L (11-82); Potassium 3.0 mmol/L (3.5-5.1); Sodium 140.0 mmol/L (136-145); Total Protein 7.7 gm/dl (6.0-8.3)
[2025-06-14] MEDS: OPTIRAY 320 100ml IV ONE (21:12)
[2025-06-14 21:34] LABS: Appearance Urine Clear (Clear); Bacteria Urine Automated None Seen (None Seen); Cast Urine Automated 0-2 /lpf (0-2); Epithelial Cell Urine Auto 0-2 /hpf (0-2); Glucose Urine UA Negative (Negative); WBC Urine Automated 21-50 /hpf (0-5)
--- NOTE | 2025-06-14 22:36 | CT Scan Report ---
Exam(s): CT ABDOMEN + PELVIS With Contrast IV Amt: 90 ml optiray 320 EXAM: CT Abdomen and Pelvis With Intravenous Contrast CLINICAL HISTORY: abd pain; fever. TECHNIQUE: Axial computed tomography images of the abdomen and pelvis with intravenous contrast. CTDI is 26.96 mGy and DLP is 1072.69 mGy-cm. Automated exposure control was utilized for the study. A dose lowering technique was utilized adhering to the principles of ALARA. CONTRAST: Patient received 90 ml optiray 320 of IV contrast COMPARISON: CT Abdomen Pelvis dated 01/28/2025 FINDINGS: Lung bases: No significant abnormality. No mass. No consolidation. ABDOMEN: Liver: Low attenuation foci in the liver which may be due to cysts but are too small to characterize. Gallbladder and bile ducts: No significant abnormality. No calcified stones. No ductal dilation. Pancreas: No significant abnormality. No mass. No ductal dilation. Spleen: No significant abnormality. No splenomegaly. Adrenals: No significant abnormality. No mass. Kidneys and ureters: No significant abnormality. No solid mass. No hydronephrosis. Stomach and bowel: No evidence for focal high-grade bowel obstruction. No small bowel mucosal abnormality. Moderate stool burden throughout the colon. The sigmoid colon is decompressed with extensive diverticulosis. There is pericolonic fat stranding adjacent to the proximal to mid sigmoid segment. PELVIS: Appendix: Not clearly identified. No findings to suggest acute appendicitis. Bladder: No significant abnormality. No mass. Reproductive: Status post hysterectomy. ABDOMEN and PELVIS: Intraperitoneal space: Abnormal partially rim enhancing fluid collection posterior to the sigmoid colon measuring 2.5 x 5.5 x 3 cm posterior to the proximal and mid sigmoid segment. No free air. Bones/joints: 7 mm anterolisthesis involving L5 on S1 secondary to bilateral L5 spondylolysis. Multilevel degenerative changes throughout the lumbar spine, most prominent involving L1-2 and L2-3, stable in appearance. No acute fracture. No dislocation. Soft tissues: No significant abnormality. Vasculature: Atherosclerotic disease. No abdominal aortic aneurysm. Lymph nodes: No significant abnormality. No enlarged lymph nodes. IMPRESSION: Abnormal partially rim enhancing fluid collection posterior to the sigmoid colon measuring 2.5 x 5.5 x 3 cm posterior to the proximal and mid sigmoid segment. There is mucosal thickening with regional diverticula of the decompressed sigmoid colon. Suspect sigmoid diverticulitis with adjacent incompletely organized abscess versus peritonitis. Electronically signed by: Ramno Fernández MD 06/14/25 22:36 PM
--- NOTE | 2025-06-14 22:48 | History & Physical Report ---
Date of Service June 14, 2025 Assessment & Plan (1) Sigmoid diverticulitis: Plan: Assessment and plan below following discussion of case with ED provider and reviewing patient history/pertinent normal/abnormal diagnostic test results. Complicated diverticulitis Recurrent disease Acute hypoxemic respiratory failure Likely secondary to narcotic administration hypertension, stable hyperlipidemia, on statin Rx GERD DM2 diet-controlled, well-controlled as of recent hemoglobin A1c of 5.23 April 2025 ankylosing spondylitis/sacroiliitis on chronic steroid Rx Hypokalemia secondary to decreased p.o. intake, home diuretic Rx contributory past tobacco abuse Admit to med/tele given hypoxemia Baseline VBG, chest x-ray Zosyn General Surgery consult re: recurrent diverticulitis with complication Patient already seen at the ER by provider. N.p.o. status and antibiotics recommended. IR consultation recommended on Monday (06/16) for possible percutaneous abscess drainage as per ED provider. Continue daily prednisone, watch out for adrenal insufficiency Replace potassium ISS BG goal 110-140 DVT prophylaxis. Lovenox subcu Full code Text document was generated using [employer] voice recognition software. It may contain grammatical or spelling errors. Kindly contact undersigned for clarification of any documentation item in question. History of Present Illness Chief Complaint: Abdominal pain Primary Care Provider: Jessica Morales MD History obtained from patient and records. Medical history significant for hypertension, hyperlipidemia, GERD, recurrent diverticulitis, past history of C. difficile, DM2 diet-controlled, ankylosing spondylitis/sacroiliitis on chronic steroid Rx, past tobacco abuse. Last confinement April 2021 for diverticular abscess which resolved with medical management. Patient woke up last night with achy lower abdominal pain reminiscent of diverticulitis attack. Fever 102 at home. Some nausea symptoms. Denies chest pain, SOB. Poor appetite. Patient consulted ER for worsening symptoms. IV Zosyn administered at the ER. Lowest O2 sats of 80s documented at the ER. 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 Allergies Allergy/AdvReac Type Severity Reaction Status Date / Time adhesive Allergy Unknown BLISTERS Verified 01/28/25 18:37 aspirin Allergy Unknown HIVES Verified 01/28/25 18:37 celecoxib Allergy Unknown HIVES Verified 01/28/25 18:37 ibuprofen Allergy Unknown HIVES Verified 01/28/25 18:37 naproxen Allergy Unknown HIVES Verified 01/28/25 18:37 piroxicam Allergy Unknown HIVES Verified 01/28/25 18:37 Sulfa (Sulfonamide Allergy Unknown VOMITING/HI Verified 01/28/25 18:37 Antibiotics) VES tetracycline Allergy Unknown HIVES?, Verified 01/28/25 18:37 ANXIETY Home Medications Medication Instructions Recorded Confirmed Type atorvastatin 80 mg tablet 80 mg PO QPM #0 tabs 02/22/18 06/14/25 History metoprolol tartrate 50 mg tablet 50 mg PO BID #0 tabs 02/22/18 06/14/25 History oxybutynin chloride 5 mg tablet 5 mg PO QPM #0 tabs 02/22/18 06/14/25 History pantoprazole 40 mg tablet,delayed 40 mg PO QAM #30 tabs 02/22/18 06/14/25 History release furosemide 40 mg tablet 40 mg PO QAM 04/21/21 06/14/25 History lisinopril 5 mg tablet 5 mg PO QPM 04/21/21 06/14/25 History acetaminophen 500 mg tablet 500 mg PO HS 01/28/25 06/14/25 History acetaminophen 650 mg 650 mg PO QAM 01/28/25 06/14/25 History tablet,extended release (Tylenol Arthritis Pain) aekrlayc-wlquoom-tmsk-lutein tablet 1 tab PO QAM 01/28/25 06/14/25 History potassium chloride 10 mEq 10 meq PO BID 01/28/25 06/14/25 History capsule,extended release prednisone 5 mg tablet 5 mg PO QAM 01/28/25 06/14/25 History Past Med/Surg History Problem List Acute hypokalemia (Acute) Leukocytosis (Acute) Abscess of sigmoid colon (Acute) Sigmoid diverticulitis (Acute) Anemia Trochanteric bursitis of left hip Arthritis of ankle Medical History Anemia 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 Ankylosing spondylitis GERD (gastroesophageal reflux disease) Hypertension Hyperlipemia Osteoarthritis History of palpitations Arrhythmia HX OF TACHYCARDIA Surgical History H/O tubal ligation Hx of lumpectomy LEFT BREAST Hx of hysterectomy Hx of colonoscopy Hx of cataract surgery RIGHT AND LEFT Hx of varicose vein ligation RLE Social History Smoking Status: Never smoker Second Hand Exposure: No; Do You Dip or Chew Tobacco: No; Hx Alcohol Use: Yes Alcohol type: wine Hx Substance Use: No Preferred Language: Citizen Of [place] Communication Ability: Effective Visual Impairment: No Limitations Transmission System Operator Required: No Beliefs That Will Affect Care: None marital status: / Current Living Situation: Alone Feels Safe at Home: Yes Assistive Devices: Cane and Glasses Review of Systems Review of Systems: As per HPI, all other systems reviewed and negative Physical Exam Physical Exam: GENERAL: Comfortable, slightly anxious, obese, no respiratory distress SKIN: Normal color, warm HEENT: [place] palpebral conjunctivae, no ptosis, dry buccal mucosa, nasal cannula in place NECK : Supple, no tenderness CHEST : Decreased breath sounds, no tenderness HEART : RRR, no obvious murmurs ABDOMEN: Some distention, hypogastric tenderness EXTREMITIES : No LE swelling/tenderness, palpable pulses, no other conspicuous deformities noted NEUROLOGIC : Coherent, no facial asymmetry, no other gross focality Results & Data Results & Data Vital Signs (Past 12 Hours) Vital Signs Temp Pulse Pulse Resp BP BP Pulse Ox 06/14/25 21:54 96 06/14/25 21:21 67 19 06/14/25 21:20 76 21 143/67 H 97 06/14/25 21:19 143/67 H 06/14/25 21:19 143/67 H 06/14/25 21:18 89 L 06/14/25 20:51 71 13 88 L 06/14/25 20:42 71 12 90 06/14/25 20:30 72 22 91 06/14/25 20:30 144/75 H 06/14/25 20:30 144/75 H 06/14/25 20:30 144/75 H 06/14/25 20:30 144/75 H 06/14/25 20:30 144/75 H 06/14/25 20:21 71 13 92 06/14/25 20:12 74 17 91 06/14/25 20:03 77 06/14/25 20:00 159/99 H 06/14/25 20:00 159/99 H 06/14/25 20:00 159/99 H 06/14/25 20:00 159/99 H 06/14/25 20:00 159/99 H 06/14/25 20:00 80 27 H 96 06/14/25 19:59 95 06/14/25 19:55 185/99 H 06/14/25 19:44 36.8 C 81 20 211/83 H 94 O2 Del Method O2 Flow Rate 06/14/25 21:54 Nasal Cannula 1 06/14/25 21:21 06/14/25 21:20 Room Air 06/14/25 21:19 06/14/25 21:19 06/14/25 21:18 06/14/25 20:51 06/14/25 20:42 06/14/25 20:30 06/14/25 20:30 06/14/25 20:30 06/14/25 20:30 06/14/25 20:30 06/14/25 20:30 06/14/25 20:21 06/14/25 20:12 06/14/25 20:03 06/14/25 20:00 06/14/25 20:00 06/14/25 20:00 06/14/25 20:00 06/14/25 20:00 06/14/25 20:00 06/14/25 19:59 Room Air 06/14/25 19:55 06/14/25 19:44 Room Air Laboratory Results Laboratory Results WBC 12.12 K/ul (4.8-10.8) H 06/14/25 20:00 RBC 5.05 M/uL (4.20-5.40) 06/14/25 20:00 Hgb 15.3 g/dL (12.0-16.0) 06/14/25 20:00 Hct 45.4 % (37.0-47.0) 06/14/25 20:00 MCV 89.9 fL (80.0-100.0) 06/14/25 20:00 MCH 30.3 pg (25.0-34.0) 06/14/25 20:00 MCHC 33.7 g/dL (32.0-36.0) 06/14/25 20:00 RDW Std Deviation 46.9 fL (36.4-46.3) H 06/14/25 20:00 RDW Coeff of [place] 14.2 % (11.5-14.5) 06/14/25 20:00 Plt Count 192 K/uL (130-400) 06/14/25 20:00 MPV 9.8 fL (9.4-12.4) 06/14/25 20:00 Immature Gran % (Auto) 0.3 % 06/14/25 20:00 Neut % (Auto) 81.2 % 06/14/25 20:00 Lymph % (Auto) 10.1 % 06/14/25 20:00 [place] % (Auto) 8.0 % 06/14/25 20:00 Eos % (Auto) 0.2 % 06/14/25 20:00 Baso % (Auto) 0.2 % 06/14/25 20:00 Neut # (Auto) 9.84 K/uL (1.40-6.50) H 06/14/25 20:00 Lymph # (Auto) 1.23 K/uL (1.20-3.40) 06/14/25 20:00 [place] # (Auto) 0.97 K/uL (0.11-0.59) H 06/14/25 20:00 Eos # (Auto) 0.02 K/uL (0.00-0.50) 06/14/25 20:00 Baso # (Auto) 0.02 K/uL (0.00-0.20) 06/14/25 20:00 Immature Gran # (Auto) 0.04 K/uL (0.01-0.20) 06/14/25 20:00 Sodium 140 mmol/L (136-145) 06/14/25 20:00 Potassium 3.0 mmol/L (3.5-5.1) L 06/14/25 20:00 Chloride 99 mmol/L (98-107) 06/14/25 20:00 Carbon Dioxide 30 mmol/L (21-32) 06/14/25 20:00 Anion Gap 11 (3-11) 06/14/25 20:00 BUN 16 mg/dl (6-23) 06/14/25 20:00 Creatinine 0.89 mg/dl (0.6-1.2) 06/14/25 20:00 Est Cr Clr Drug Dosing 50.9 ml/min 06/14/25 20:00 eGFR 67.15 06/14/25 20:00 BUN/Creatinine Ratio 18.0 (10-20) 06/14/25 20:00 Glucose 116 mg/dl (70-99(Fasting)) H 06/14/25 20:00 Lactate 1.3 mmol/L (0.4-2.0) 06/14/25 20:00 Calcium 9.8 mg/dl (8.6-10.3) 06/14/25 20:00 Total Bilirubin 1.2 mg/dl (0.2-1.0) H 06/14/25 20:00 AST 25 U/L (13-39) 06/14/25 20:00 ALT 20 U/L (7-52) 06/14/25 20:00 Alkaline Phosphatase 61 U/L (34-104) 06/14/25 20:00 Total Protein 7.7 gm/dl (6.0-8.3) 06/14/25 20:00 Albumin 4.1 gm/dl (3.4-5.0) 06/14/25 20:00 Globulin 3.6 gm/dl (2.5-4.0) 06/14/25 20:00 Albumin/Globulin Ratio 1.1 (0.9-2) 06/14/25 20:00 Lipase 12 U/L (11-82) 06/14/25 20:00 Urine Color Yellow 06/14/25 21:07 Urine Appearance Clear (Clear) 06/14/25 21:07 Urine pH 6.5 (4.5-7.5) 06/14/25 21:07 Ur Specific [place] 1.014 (1.000-1.030) 06/14/25 21:07 Urine Protein Negative (Negative) 06/14/25 21:07 Urine Glucose (UA) Negative (Negative) 06/14/25 21:07 Urine Ketones Trace (Negative) H 06/14/25 21:07 Urine Blood Trace (Negative) H 06/14/25 21:07 Urine Nitrite Negative (Negative) 06/14/25 21: Urine Bilirubin Negative (Negative) 06/14/25 21:07 Urine Urobilinogen Negative (Negative) 06/14/25 21:07 Ur Leukocyte Esterase 2+ (Negative) H 06/14/25 21:07 Urine WBC (Auto) 21-50 /hpf (0-5) H 06/14/25 21:07 Urine RBC (Auto) 3-5 /hpf (0-2) H 06/14/25 21:07 U Hyaline Cast (Auto) 0-2 /lpf (0-2) 06/14/25 21:07 U Epithel Cells (Auto) 0-2 /hpf (0-2) 06/14/25 21:07 Urine Bacteria (Auto) None Seen (None Seen) 06/14/25 21:07 Urine Comment 06/14/25 21:07 Impressions Abdomen/Pelvis CT 06/14/25 19:50 Exam(s): CT ABDOMEN + PELVIS With Contrast IV Amt: 90 ml optiray 320 EXAM: CT Abdomen and Pelvis With Intravenous Contrast CLINICAL HISTORY: abd pain; fever. TECHNIQUE: Axial computed tomography images of the abdomen and pelvis with intravenous contrast. CTDI is 26.96 mGy and DLP is 1072.69 mGy-cm. Automated exposure control was utilized for the study. A dose lowering technique was utilized adhering to the principles of ALARA. CONTRAST: Patient received 90 ml optiray 320 of IV contrast COMPARISON: CT Abdomen Pelvis dated 01/28/2025 FINDINGS: Lung bases: No significant abnormality. No mass. No consolidation. ABDOMEN: Liver: Low attenuation foci in the liver which may be due to cysts but are too small to characterize. Gallbladder and bile ducts: No significant abnormality. No calcified stones. No ductal dilation. Pancreas: No significant abnormality. No mass. No ductal dilation. Spleen: No significant abnormality. No splenomegaly. Adrenals: No significant abnormality. No mass. Kidneys and ureters: No significant abnormality. No solid mass. No hydronephrosis. Stomach and bowel: No evidence for focal high-grade bowel obstruction. No small bowel mucosal abnormality. Moderate stool burden throughout the colon. The sigmoid colon is decompressed with extensive diverticulosis. There is pericolonic fat stranding adjacent to the proximal to mid sigmoid segment. PELVIS: Appendix: Not clearly identified. No findings to suggest acute appendicitis. Bladder: No significant abnormality. No mass. Reproductive: Status post hysterectomy. ABDOMEN and PELVIS: Intraperitoneal space: Abnormal partially rim enhancing fluid collection posterior to the sigmoid colon measuring 2.5 x 5.5 x 3 cm posterior to the proximal and mid sigmoid segment. No free air. Bones/joints: 7 mm anterolisthesis involving L5 on S1 secondary to bilateral L5 spondylolysis. Multilevel degenerative changes throughout the lumbar spine, most prominent involving L1-2 and L2-3, stable in appearance. No acute fracture. No dislocation. Soft tissues: No significant abnormality. Vasculature: Atherosclerotic disease. No abdominal aortic aneurysm. Lymph nodes: No significant abnormality. No enlarged lymph nodes. IMPRESSION: Abnormal partially rim enhancing fluid collection posterior to the sigmoid colon measuring 2.5 x 5.5 x 3 cm posterior to the proximal and mid sigmoid segment. There is mucosal thickening with regional diverticula of the decompressed sigmoid colon. Suspect sigmoid diverticulitis with adjacent incompletely organized abscess versus peritonitis. Electronically signed by: Ramon Fernández MD 06/14/25 22:36 PM
[2025-06-14] MEDS: PIPERACILLIN/TAZOBACTAM 4.5 GM/100 ML BAG IV ONE (23:02)
[2025-06-14] MEDS: POTASSIUM CHLORIDE CRTAB 20 MEQ TABCR PO STA (23:38)
[2025-06-14 23:40] LABS: Magnesium 1.8 mg/dl (1.7-2.4)
--- NOTE | 2025-06-14 23:49 | Surgery Consultation ---
<Statement entered by Poli Kaufman, - 06/15/25 18:24> This case was discussed with the surgical PA, I agree with this plan Date of Consultation June 14, 2025 Assessment & Plan (1) Sigmoid diverticulitis: I evaluated the patient in room B7 and the patient is going to be admitted on the hospitalist service with surgical recommendations as follows: Provide analgesics only provide antiemetics Hydrate with IV fluids and supplement electrolytes as indicated Antibiotics in form of Zosyn initiated and he should continue N.p.o. status should be implemented and maintained Patient does have an abscess secondary to diverticulitis. Will consult with our interventional radiology colleagues to see if there is any role for percutaneous intervention At the present time the patient is nontoxic-appearingshe is normotensive wqithout tachycardia or fever and only exhibits a slight leukocytosis therefore I feel conservative measures can be attempted. I did discuss with the patient that if an emergent operation would need to be performed she would likely necessitate a temporary colostomy which she would like to avoid I did discuss with the patient that if we can get her abscess drained percutaneously and treat her conservatively, once she has recovered we would recommend that she get see a colorectal specialist for consideration of surgical intervention Would recommend following serial labs Additional recommendations were forthcoming based on her clinical course as it unfolds History of Present Illness Reason for Consultation: Diverticulitis History of Present Illness This is a 74-year-old female who presented to the emergency department secondary to lower abdominal pain that began yesterday. Patient reports that she has had fevers as high as 101. She denies any nausea or vomiting. She notes that she has been having bowel movements without any bright blood per rectum or hematochezia. The patient does not report any mitigating or modifying factors to her pain. The patient further relates that she does have a history of diverticulitis. She was hospitalized in April 2021 secondary to diverticulitis and she was treated conservatively at this time. It was recommended the patient did see colorectal surgery resolution of this problem which she did. She notes that the colorectal surgeon she saw was from through [facility] and she was offered surgical intervention which she declined. She also notes that she did have a colonoscopy following recovery from that a forementioned episode of diverticulitis and to the best of her knowledge there is no concerning pathology. The patient further relates that she believes she did have an episode of diverticulitis since that time however she was not hospitalized. Since arrival to hospital this patient has had labs and imaging which I independently reviewed. Chest x-ray did not show any evidence of pneumothorax. A CT scan of the abdomen and pelvis showed the patient had a rim-enhancing fluid collection posterior to the sigmoid colon which measured 2.5 x 5.5 x 3 cm. There is no gross intraperitoneal free air. This fluid collection is concerning for an abscess secondary to sigmoid diverticulitis. Labs include CBC white blood cell count was 12.1. Hemoglobin and hematocrit as well as platelet count were normal. Chemistry profile showed sodium was normal. Potassium is 3.0. BUN and creatinine were not elevated. Lactic acid level was normal at 1.3. At the time of my interview the patient was resting comfortably in bed and she was in no distress. Allergies Allergy/AdvReac Type Severity Reaction Status Date / Time adhesive Allergy Unknown BLISTERS Verified 01/28/25 18:37 aspirin Allergy Unknown HIVES Verified 01/28/25 18:37 celecoxib Allergy Unknown HIVES Verified 01/28/25 18:37 ibuprofen Allergy Unknown HIVES Verified 01/28/25 18:37 naproxen Allergy Unknown HIVES Verified 01/28/25 18:37 piroxicam Allergy Unknown HIVES Verified 01/28/25 18:37 Sulfa (Sulfonamide Allergy Unknown VOMITING/HI Verified 01/28/25 18:37 Antibiotics) VES tetracycline Allergy Unknown HIVES?, Verified 01/28/25 18:37 ANXIETY Home Medications Medication Instructions Recorded Confirmed Type atorvastatin 80 mg tablet 80 mg PO QPM #0 tabs 02/22/18 06/14/25 History metoprolol tartrate 50 mg tablet 50 mg PO BID #0 tabs 02/22/18 06/14/25 History oxybutynin chloride 5 mg tablet 5 mg PO QPM #0 tabs 02/22/18 06/14/25 History pantoprazole 40 mg tablet,delayed 40 mg PO QAM #30 tabs 02/22/18 06/14/25 History release furosemide 40 mg tablet 40 mg PO QAM 04/21/21 06/14/25 History lisinopril 5 mg tablet 5 mg PO QPM 04/21/21 06/14/25 History acetaminophen 500 mg tablet 500 mg PO HS 01/28/25 06/14/25 History acetaminophen 650 mg 650 mg PO QAM 01/28/25 06/14/25 History tablet,extended release (Tylenol Arthritis Pain) lwtadjul-vshhosn-ycvq-lutein tablet 1 tab PO QAM 01/28/25 06/14/25 History potassium chloride 10 mEq 10 meq PO BID 01/28/25 06/14/25 History capsule,extended release prednisone 5 mg tablet 5 mg PO QAM 01/28/25 06/14/25 History Patient History Medical History Anemia 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 Ankylosing spondylitis GERD (gastroesophageal reflux disease) Hypertension Hyperlipemia Osteoarthritis History of palpitations Arrhythmia HX OF TACHYCARDIA Surgical History H/O tubal ligation Hx of lumpectomy LEFT BREAST Hx of hysterectomy Hx of colonoscopy Hx of cataract surgery RIGHT AND LEFT Hx of varicose vein ligation RLE Social History Smoking Status: Former smoker Second Hand Exposure: No; Do You Dip or Chew Tobacco: No; Hx Alcohol Use: Yes Alcohol type: wine Hx Substance Use: No Preferred Language: [place] Communication Ability: Effective Visual Impairment: No Limitations Assessment Manager Required: No Beliefs That Will Affect Care: None marital status: / Current Living Situation: Alone Feels Safe at Home: Yes Assistive Devices: None Review of Systems Review of Systems: All systems reviewed & are unremarkable except as noted in HPI & below Physical Exam Constitutional: WD/WN, vitals as above Eyes: no conjunctival abnormality ENMT: Ears: no hearing impairment and no external ear abnormality Mouth: no oropharynx abnormality Neck: trachea midline Respiratory: normal respiratory effort; no respiratory distress and no labored breathing Cardiovascular: Rate/Rhythm: regular rate and regular rhythm Gastrointestinal (Abdomen): Abdomen is soft without rigidity, rebound tenderness, or guarding. There are no signs of peritonitis. The patient did have pain with palpation of the left lower quadrant. Musculoskeletal: No calf tenderness Skin: no rashes Neurologic: moves all extremities Psychiatric: A+Ox3, euthymic affect Results & Data Vital Signs (Past 12 Hours) Vital Signs Temp Pulse Pulse Resp BP BP Pulse Ox 06/14/25 23:30 72 20 124/74 95 06/14/25 23:12 73 13 111/60 95 06/14/25 23:00 111/60 06/14/25 23:00 111/60 06/14/25 22:51 74 9 L 94 06/14/25 22:42 74 19 93 06/14/25 22:30 74 15 92 06/14/25 22:30 111/74 06/14/25 22:30 111/74 06/14/25 22:30 111/74 06/14/25 22:30 111/74 06/14/25 22:30 111/74 06/14/25 22:21 74 15 93 06/14/25 22:12 74 16 93 06/14/25 22:00 73 17 92 06/14/25 22:00 122/77 06/14/25 22:00 122/77 06/14/25 22:00 122/77 06/14/25 22:00 122/77 06/14/25 22:00 122/77 06/14/25 21:54 96 06/14/25 21:51 76 19 90 06/14/25 21:42 75 18 88 L 06/14/25 21:30 76 15 90 06/14/25 21:30 147/72 H 06/14/25 21:30 147/72 H 06/14/25 21:30 147/72 H 06/14/25 21:30 147/72 H 06/14/25 21:30 147/72 H 06/14/25 21:21 67 19 06/14/25 21:20 76 21 143/67 H 97 06/14/25 21:19 143/67 H 06/14/25 21:19 143/67 H 06/14/25 21:18 89 L 06/14/25 20:51 71 13 88 L 06/14/25 20:42 71 12 90 06/14/25 20:30 72 22 91 06/14/25 20:30 144/75 H 06/14/25 20:30 144/75 H 06/14/25 20:30 144/75 H 06/14/25 20:30 144/75 H 06/14/25 20:30 144/75 H 06/14/25 20:21 71 13 92 06/14/25 20:12 74 17 91 06/14/25 20:03 77 06/14/25 20:00 159/99 H 06/14/25 20:00 159/99 H 06/14/25 20:00 159/99 H 06/14/25 20:00 159/99 H 06/14/25 20:00 159/99 H 06/14/25 20:00 80 27 H 96 06/14/25 19:59 95 06/14/25 19:55 185/99 H 06/14/25 19:44 36.8 C 81 20 211/83 H 94 O2 Del Method O2 Flow Rate 06/14/25 23:30 Nasal Cannula 1 06/14/25 23:12 06/14/25 23:00 06/14/25 23:00 06/14/25 22:51 06/14/25 22:42 06/14/25 22:30 06/14/25 22:30 06/14/25 22:30 06/14/25 22:30 06/14/25 22:30 06/14/25 22:30 06/14/25 22:21 06/14/25 22:12 06/14/25 22:00 06/14/25 22:00 06/14/25 22:00 06/14/25 22:00 06/14/25 22:00 06/14/25 22:00 06/14/25 21:54 Nasal Cannula 1 06/14/25 21:51 06/14/25 21:42 06/14/25 21:30 06/14/25 21:30 06/14/25 21:30 06/14/25 21:30 06/14/25 21:30 06/14/25 21:30 06/14/25 21:21 06/14/25 21:20 Room Air 06/14/25 21:19 06/14/25 21:19 06/14/25 21:18 06/14/25 20:51 06/14/25 20:42 06/14/25 20:30 06/14/25 20:30 06/14/25 20:30 06/14/25 20:30 06/14/25 20:30 06/14/25 20:30 06/14/25 20:21 06/14/25 20:12 06/14/25 20:03 06/14/25 20:00 06/14/25 20:00 06/14/25 20:00 06/14/25 20:00 06/14/25 20:00 06/14/25 20:00 06/14/25 19:59 Room Air 06/14/25 19:55 06/14/25 19:44 Room Air PG Care Time/CCT Total # of Minutes Spent Total Time Spent with Patient: Total time spent is greater than 50% in coordination of care (as documented) at patient's floor/unit and/or counseling patient: Coding Level of Care Code 53474 INT INP/OBS CARE 3/75MIN Diagnoses Sigmoid diverticulitis K57.32
--- NOTE | 2025-06-15 00:08 | XRay Report ---
Exam(s): XR CXR 1 VIEW EXAM: XR Chest, 1 View CLINICAL HISTORY: low o2. TECHNIQUE: Frontal view of the chest. COMPARISON: Chest two views dated 02/26/2018 FINDINGS: Lungs: Questionable subtle subsegmental ill-defined opacity at the right lung base. The lungs are otherwise well-aerated. The pulmonary vasculature is unremarkable. Pleural space: No significant abnormality. No pneumothorax. No large pleural effusion. Heart: The cardiac silhouette is within normal limits, accounting for portable technique. Mediastinum: No significant abnormality identified. The trachea is midline. Bones/joints: No significant abnormality. No acute fracture. IMPRESSION: Questionable subtle subsegmental ill-defined opacity at the right lung base. Suspect artifact from overlying soft tissues; however, subtle right basilar atelectasis or infection is difficult to entirely exclude on this portable examination. The lungs are otherwise unremarkable. No pleural effusion or pneumothorax. Electronically signed by: Ramon Fernández MD 06/15/25 00:07 AM
[2025-06-15] MEDS ORDERED: LORazepam 0.5 MG TAB PO PRN (00:37)
[2025-06-15] MEDS ORDERED: ACETAMINOPHEN 325 MG TAB PO PRN (00:37)
[2025-06-15] MEDS ORDERED: PROMETHAZINE 6.25 MG/50.25 ML BAG IV PRN (00:37)
[2025-06-15] MEDS: MoRPHine SULFATE 4 MG/ML 1 ML CARP\\VIAL IV PRN (01:23)
[2025-06-15] MEDS: POTASSIUM CHLORIDE 20 MEQ in LACTATED RINGER'S 1,000 ML IV ONE (01:26)
[2025-06-15] MEDS ORDERED: GLUCOSE 10 TAB/TUBE PO PRN (01:33)
[2025-06-15] MEDS ORDERED: DEXTROSE 50% 50 ML SYRINGE IV PRN (01:33)
[2025-06-15] MEDS ORDERED: GLUCAGON FOR INJ 1 MG VIAL SQ PRN (01:33)
[2025-06-15] MEDS ORDERED: CARBOHYDRATES FOR HYPOGLYCEMIA PO PRN (01:33)
[2025-06-15] MEDS ORDERED: GLUCOSE 40% GEL 15 GM TUBE PO PRN (01:33)
[2025-06-15 01:34] LABS: Base Excess VBG 5.0 mEq/L; HCO3 VBG 30 mmol/L; Oxygen Saturation VBG 78.1 %; PCO2 VBG 44 mmHg (38-50); PO2 VBG 47 mmHg; pH VBG 7.44 (7.36-7.41)
[2025-06-15] MEDS: INSULIN ASPART PER UNIT CHARGE SC SCH ×2 (02:54→18:13)
[2025-06-15] MEDS: PIPERACILLIN/TAZOBACTAM 4.5 GM/100 ML BAG IV SCH (05:18)
[2025-06-15 06:37] LABS: Anion Gap 10.0 (3-11); Blood Urea Nitrogen 14.0 mg/dl (6-23); Calcium 9.3 mg/dl (8.6-10.3); Carbon Dioxide 28.0 mmol/L (21-32); Chloride 103.0 mmol/L (98-107); Creatinine Clr Calc Pharmacy 50.4 ml/min; Glucose 109.0 mg/dl (70-99(Fasting)); Potassium 3.3 mmol/L (3.5-5.1); Sodium 141.0 mmol/L (136-145)
[2025-06-15 06:57] LABS: Hematocrit (blood only) 43.9 % (37.0-47.0); Hemoglobin 14.5 g/dL (12.0-16.0); Immature Granulocytes # (auto) 0.07 K/uL (0.01-0.20); Immature Granulocytes % (auto) 0.5 %; Mean Corpuscular Hemoglobin 29.8 pg (25.0-34.0); Mean Corpuscular Volume 90.3 fL (80.0-100.0); Platelet Count 143 K/uL (130-400); RDW Standard Deviation 48.0 fL (36.4-46.3); Red Blood Count 4.86 M/uL (4.20-5.40); White Blood Count 12.82 K/ul (4.8-10.8)
[2025-06-15] MEDS: ACETAMINOPHEN 325 MG TAB PO SCH (09:12)
[2025-06-15] MEDS: ENOXAPARIN INJ 40 MG/0.4 ML SYR SQ SCH (09:12)
[2025-06-15] MEDS: METOPROLOL TARTRATE 50 MG TAB PO SCH (09:12)
[2025-06-15] MEDS: CEROVITE ADV FORMULA TAB PO SCH (09:12)
--- NOTE | 2025-06-15 10:53 | Hospitalist Progress Note ---
Date of Service June 15, 2025 Assessment & Plan (1) Abscess of sigmoid colon due to diverticulitis: (2) Acute hypokalemia: (3) Ankylosing spondylitis: (4) Hypertension: Plan Patient with diverticulitis abscess formation, symptomatically slightly improved. Asking for possible clear liquids. Replace potassium Continue antibiotics Continue pain control Communication with surgical team, may investigate IR drainage if possible tomorrow Admission and Anticipated Discharge Date Admission Date: June 14, 2025 Subjective Patient feels a little bit better but still quite tender low abdomen area. Physical Exam Physical Exam: Constitutional: Alert, nontoxic but mildly ill HEENT: Mucous membranes moist. Lungs: Clear to auscultation, decreased, no wheezes rales or rhonchi CV: S1-S2, regular Abdomen: Soft, tender with some mild guarding lower abdomen, no distention, no guarding Extremities: No significant edema Neuro: No focal deficits Psych: Cooperative, normal mood Results & Data Results & Data Vital Signs (Past 12 Hours) Vital Signs Temp Pulse Pulse Resp BP BP Pulse Ox 06/15/25 07:15 37.6 C H 66 18 123/77 92 06/15/25 04:08 75 06/15/25 04:05 37.8 C H 77 18 120/72 94 06/15/25 02:00 117/66 06/15/25 02:00 117/66 06/15/25 02:00 117/66 06/15/25 02:00 117/66 06/15/25 02:00 117/66 06/15/25 02:00 76 16 93 06/15/25 01:33 06/15/25 01:24 78 22 110/74 92 06/15/25 00:01 71 06/15/25 00:00 87 18 110/74 94 06/14/25 23:30 72 20 124/74 95 06/14/25 23:12 73 13 111/60 95 06/14/25 23:00 111/60 06/14/25 23:00 11160 06/14/25 22:51 74 9 L 94 Pulse Ox O2 Del Method O2 Del Method O2 Flow Rate O2 Flow Rate 06/15/25 07:15 06/15/25 04:08 06/15/25 04:05 Room Air 06/15/25 02:00 06/15/25 02:00 06/15/25 02:00 06/15/25 02:00 06/15/25 02:00 06/15/25 02:00 06/15/25 01:33 91 Nasal Cannula 1 06/15/25 01:24 Nasal Cannula 1 06/15/25 00:01 06/15/25 00:00 Nasal Cannula 1 06/14/25 23:30 Nasal Cannula 1 06/14/25 23:12 06/14/25 23:00 06/14/25 23:00 06/14/25 22:51 Diagnostic Findings Reviewed imaging, laboratory and diagnostic studies. Pertinent findings as below. WBCs 12.8 Hemoglobin 14.5 Platelets of 143 Potassium 3.3 Creatinine 0.9
[2025-06-15] MEDS: POTASSIUM CHLORIDE CRTAB 20 MEQ TABCR PO STA (12:28)
[2025-06-15] MEDS: SODIUM CHLOR 0.45% + 20MEQ KCL 20 MEQ/1,000 ML BAG IV SCH (12:30)
[2025-06-15] MEDS ORDERED: Nursing to Pharmacy Communication SCH ×2 (15:15→23:00)
--- NOTE | 2025-06-15 17:31 | Surgery Progress Note ---
<Statement entered by Poli Kaufman, - 06/15/25 18:07> I have seen and examined this patient this am with the surgical PA and I agree with this plan. Date of Service June 15, 2025 Assessment & Plan (1) Abscess of sigmoid colon due to diverticulitis: Plan Patient clinically appears to be doing well, states that her abdominal pain has improved, but white blood cell count still elevated. She has only been on IV antibiotics for approximately 12 hours, so we would like to continue IV antibiotics and trend white blood cell count, temps, and serial abdominal exams. Our hope is to avoid surgical intervention on his admission and treat her diverticulitis with IV antibiotics. We will discuss with interventional radiology tomorrow about the possibility of possible drainage of this fluid collection in the deep pelvis which could potentially speed her recovery. For now, would continue to keep her n.p.o., IV fluids, IV pain medication, continue IV Zosyn, okay from a surgical standpoint for pharmacologic DVT prophylaxis with heparin or Lovenox. Remainder of her care per the primary medicine team, general surgery will continue to follow as well. Admission and Anticipated Discharge Date Admission Date: June 14, 2025 Subjective Patient was seen and examined with patient sitting at bedside chair, states that she feels better than on admission, does admit to some left lower quadrant abdominal pain, worse with movement, better at rest, but states that it is improved. She denies any nausea or vomiting, denies any flatus or bowel movement yet, no chest pain or shortness of breath, no fevers or chills, but did have a Tmax of 37.8. White blood cell count slightly up today at 12.8, up from yesterday at 12.1, on Zosyn for her diverticulitis with a free fluid collection in the pelvis. She otherwise states that she feels well. She states that she has had several episodes of diverticulitis in the past, has seen a colorectal surgeon in the past who recommended resection, but she was unwilling to consent to this due to concerns for the possibility of an ostomy. We had a detailed description of the typical progression of diverticular disease and to the risk of possible perforation and possible need for emergent surgery with colostomy. Patient expresses understanding but would like to avoid surgery if possible. Physical Exam Physical Exam: Gen: Awake and alert, resting comfortably in bed in NAD CV: RRR PULM: non-labored breathing Abd: Abd soft, non-distended, minimal left lower quadrant tenderness with no guarding or rigidity, no overt peritoneal signs. ext: no edema to bilateral lower ext, SCDs in place, non-tender, feet warm and well perfused Results & Data Vital Signs (Past 12 Hours) Vital Signs Temp Pulse Pulse Resp BP BP Pulse Ox 06/15/25 16:00 36.9 C 77 16 158/91 H 95 06/15/25 15:11 36.7 C 72 18 112/69 92 06/15/25 11:01 36.6 C 76 19 103/59 L 91 06/15/25 07:15 37.6 C H 66 18 123/77 92 O2 Del Method 06/15/25 16:00 Room Air 06/15/25 15:11 06/15/25 11:01 06/15/25 07:15 PG Care Time/CCT Total # of Minutes Spent Total Time Spent with Patient: Total time spent is greater than 50% in coordination of care (as documented) at patient's floor/unit and/or counseling patient: Coding [place] [address] SUB INP/OBS CARE 08/10MIN Patient Type Established History Problem Focused Exam Problem Focused Medical Decision Making Straight Forward Diagnoses Abscess of sigmoid colon due to diverticulitis K57.20
[2025-06-15] MEDS ORDERED: INSULIN ASPART PER UNIT CHARGE SC SCH (21:15)
[2025-06-15] MEDS: ATORVASTATIN 40 MG TAB PO SCH (21:41)
[2025-06-15] MEDS: ACETAMINOPHEN 500 MG TAB PO SCH (21:47)
[2025-06-16 06:27] LABS: Hematocrit (blood only) 39.6 % (37.0-47.0); Hemoglobin 12.9 g/dL (12.0-16.0); Mean Corpuscular Hemoglobin 29.9 pg (25.0-34.0); Mean Corpuscular Volume 91.9 fL (80.0-100.0); Platelet Count 160 K/uL (130-400); RDW Standard Deviation 48.3 fL (36.4-46.3); Red Blood Count 4.31 M/uL (4.20-5.40); White Blood Count 10.28 K/ul (4.8-10.8)
[2025-06-16 06:56] LABS: Anion Gap 7.0 (3-11); Blood Urea Nitrogen 10.0 mg/dl (6-23); Calcium 8.9 mg/dl (8.6-10.3); Carbon Dioxide 26.0 mmol/L (21-32); Chloride 108.0 mmol/L (98-107); Creatinine Clr Calc Pharmacy 62.1 ml/min; Glucose 85.0 mg/dl (70-99(Fasting)); Magnesium 1.9 mg/dl (1.7-2.4); Potassium 3.8 mmol/L (3.5-5.1); Sodium 141.0 mmol/L (136-145)
[2025-06-16] MEDS ORDERED: POTASSIUM PHOS 3 MMOL/1 ML INFUSION IV STA (08:54)
--- NOTE | 2025-06-16 09:39 | Surgery Progress Note ---
Date of Service June 16, 2025 Assessment & Plan (1) Abscess of sigmoid colon due to diverticulitis: Plan Continue with conservative management Reviewed imaging with IR, collection too narrow to drain at this time. Continue IV abx Advanced diet to clears Continue IVF for now Ambulate Chemical DVT ppx Warm and cool compresses for arthritis flare up Pt would like to be referred Dr. Goodson [place] [facility] [place]mission and Anticipated Discharge Date Admission Date: June 14, 2025 Subjective Pt seen and examined this am. She denies N/V. She admits to passing flatus. Physical Exam Constitutional: average body habitus; not ill appearing, not in distress and not diaphoretic Respiratory: normal respiratory effort; no respiratory distress, no labored breathing and does not use accessory muscles Cardiovascular: Rate/Rhythm: regular rate; not tachycardic Gastrointestinal (Abdomen): Inspection/Auscultation: abdomen normal to inspection; abdomen not distended Percussion/Palpation: + abdomen tender (minimally TTP lower abdomen) and abdomen soft; no guarding and abdomen not rigid Results & Data Vital Signs (Past 12 Hours) Vital Signs Temp Pulse Pulse Resp BP Pulse Ox O2 Del Method 06/16/25 07:22 37.0 C 77 16 147/81 H 93 Room Air 06/15/25 22:41 37.1 C 82 14 166/79 H 95 Room Air PG Care Time/CCT Total # of Minutes Spent Total Time Spent with Patient: Total time spent is greater than 50% in coordination of care (as documented) at patient's floor/unit and/or counseling patient: Coding Level of Care Code 89689 SUB INP/OBS CARE 2/35MIN Diagnoses Abscess of sigmoid colon due to diverticulitis K57.20
[2025-06-16] MEDS ORDERED: Nursing to Pharmacy Communication SCH (09:45)
[2025-06-16] MEDS: POTASSIUM PHOSPHATE 24 MMOL in SODIUM CHLORIDE 0.9% 500 ML IV ONE (10:26)
--- NOTE | 2025-06-16 12:23 | Hospitalist Progress Note ---
Date of Service June 16, 2025 Assessment & Plan (1) Abscess of sigmoid colon due to diverticulitis: (2) Acute hypokalemia: (3) Ankylosing spondylitis: (4) Hypertension: Plan Patient significantly improved with antibiotic treatment for diverticular abscess. Reviewed surgical notes, discussed case with interventional radiology, not a candidate for IR drainage Continue IV antibiotics Advance diet as tolerated Replace phosphorus Follow electrolytes Encourage activity Admission and Anticipated Discharge Date Admission Date: June 14, 2025 Subjective Patient tolerating clear liquids. Abdominal pain significantly improved. Physical Exam Physical Exam: Constitutional: Alert HEENT: Mucous membranes moist. Lungs: Clear to auscultation, decreased, no wheezes rales or rhonchi CV: S1-S2, regular Abdomen: Soft, minimal tenderness, nondistended Extremities: No significant edema Neuro: No focal deficits Psych: Cooperative, normal mood Results & Data Results & Data Vital Signs (Past 12 Hours) Vital Signs Temp Pulse Resp BP Pulse Ox O2 Del Method 06/16/25 07:22 37.0 C 77 16 147/81 H 93 Room Air Diagnostic Findings Reviewed imaging, laboratory and diagnostic studies. Pertinent findings as below. WBC 10.2 Hemoglobin 12.9 Potassium 3.8 Phosphorus 2.2
[2025-06-16] MEDS: INSULIN ASPART PER UNIT CHARGE SC SCH (12:36)
[2025-06-16] MEDS: ACETAMINOPHEN 325 MG TAB PO PRN (17:23)
[2025-06-17 07:00] LABS: Anion Gap 8.0 (3-11); Blood Urea Nitrogen 7.0 mg/dl (6-23); Calcium 8.6 mg/dl (8.6-10.3); Carbon Dioxide 25.0 mmol/L (21-32); Chloride 108.0 mmol/L (98-107); Creatinine Clr Calc Pharmacy 63.9 ml/min; Glucose 79.0 mg/dl (70-99(Fasting)); Magnesium 2.0 mg/dl (1.7-2.4); Potassium 3.4 mmol/L (3.5-5.1); Sodium 141.0 mmol/L (136-145)
[2025-06-17] MEDS: POTASSIUM CHLORIDE CRTAB 20 MEQ TABCR PO SCH (08:33)
--- NOTE | 2025-06-17 10:49 | Hospitalist Progress Note ---
Date of Service June 17, 2025 Assessment & Plan (1) Abscess of sigmoid colon due to diverticulitis: (2) Acute hypokalemia: (3) Ankylosing spondylitis: (4) Hypertension: Plan Patient slowly seems to be improving with antibiotic intervention for her diverticular abscess. Continue current antibiotics Patient complaining a little bit more abdominal pain this morning, will continue on clear liquids for now, surgery to reassess this afternoon and consider advancing diet Continue to replace potassium Continue other meds as prescribed Activity Admission and Anticipated Discharge Date Admission Date: June 14, 2025 Subjective Patient complaining of a bit more pain and discomfort in the low abdomen and suprapubic area. Some leg cramping. Physical Exam Physical Exam: Constitutional: Alert, sitting in chair, nontoxic HEENT: Mucous membranes moist. Lungs: Clear to auscultation, decreased, no wheezes rales or rhonchi CV: S1-S2, regular Abdomen: Soft, mild distention, hypoactive bowel sounds, tenderness in the left lower quadrant suprapubic area, minimal guarding, no rigidity Extremities: No significant edema, some mild left gastrocnemius muscle tenderness, negative Homans, Neuro: No focal deficits Psych: Cooperative, normal mood Results & Data Results & Data Vital Signs (Past 12 Hours) Vital Signs Temp Pulse Resp BP Pulse Ox O2 Del Method 06/17/25 07:23 36.9 C 63 16 171/89 H 95 Room Air Diagnostic Findings Reviewed imaging, laboratory and diagnostic studies. Pertinent findings as below. Potassium 3.4 Creatinine 0.71 Magnesium 2.0
--- NOTE | 2025-06-17 15:35 | Surgery Progress Note ---
Date of Service June 17, 2025 Assessment & Plan (1) Abscess of sigmoid colon due to diverticulitis: Plan: Reviewed imaging with IR, collection too small to drain at this time. Patient clinically appears to be improving with nonoperative management, recommend advance diet as tolerated, continue with IV antibiotics, ambulate. Consider Hep-Lock IV fluids if continues to improve Plan Continue with conservative management Reviewed imaging with IR, collection too narrow to drain at this time. Continue IV abx Advanced diet to clears Continue IVF for now Ambulate Chemical DVT ppx Warm and cool compresses for arthritis flare up Pt would like to be referred Dr. Goodson [place] [facility] [place]mission and Anticipated Discharge Date Admission Date: June 14, 2025 Subjective Patient reports improvement in her abdominal pain. She stated this morning she had some worsening abdominal pain but feels now it was more due to to some gas and chronic back pain symptoms. This has resolved and she is tolerating liquid diet well. Review of Systems Review of Systems: All systems reviewed & are unremarkable except as noted in HPI & below Physical Exam Constitutional: WD/WN, vitals as above Eyes: PERRL, conjunctivae normal, anicteric sclerae ENMT: external ear and nose normal, oropharynx normal Neck: trachea midline, no thyromegaly Respiratory: Normal effort Cardiovascular: Rate/Rhythm: regular rate Gastrointestinal (Abdomen): Soft, nondistended, nontender Psychiatric: A+Ox3, euthymic affect Results & Data Vital Signs (Past 12 Hours) Vital Signs Temp Pulse Resp BP Pulse Ox O2 Del Method 06/17/25 15:01 36.8 C 61 17 175/88 H 94 Room Air 06/17/25 07:23 36.9 C 63 16 171/89 H 95 Room Air PG Care Time/CCT Total # of Minutes Spent Total Time Spent with Patient: Total time spent is greater than 50% in coordination of care (as documented) at patient's floor/unit and/or counseling patient: Coding Level of Care Code 23361 SUB INP/OBS CARE 35MIN Diagnoses Abscess of sigmoid colon due to diverticulitis K57.20
[2025-06-17] MEDS: PNEUMOCOCCAL VACCINE (PCV20) 20-VAL CONJ-DIP CRM/PF 0.5 ML SYR IM ONE (21:00)
[2025-06-18] MEDS ORDERED: SIMETHICONE 40 MG/0.6 ML 30ML PO PRN (09:44)
[2025-06-18 10:40] LABS: Anion Gap 9.0 (3-11); Blood Urea Nitrogen 5.0 mg/dl (6-23); Calcium 8.7 mg/dl (8.6-10.3); Carbon Dioxide 22.0 mmol/L (21-32); Chloride 107.0 mmol/L (98-107); Creatinine Clr Calc Pharmacy 61.3 ml/min; Glucose 105.0 mg/dl (70-99(Fasting)); Potassium 3.9 mmol/L (3.5-5.1); Sodium 138.0 mmol/L (136-145)
--- NOTE | 2025-06-18 11:00 | Hospitalist Progress Note ---
Date of Service June 18, 2025 Assessment & Plan (1) Abscess of sigmoid colon due to diverticulitis: (2) Acute hypokalemia: (3) Ankylosing spondylitis: (4) Hypertension: Plan Patient with acute diverticulitis and abscess, seems to be steadily improving Continue to advance diet today Mylicon for some bloating and gas symptoms Saline lock IV fluids Potassium has been replaced Blood pressure has been overall increased, will increase bedtime lisinopril Continue IV antibiotics Communication with surgical team agrees with advancing diet Admission and Anticipated Discharge Date Admission Date: June 14, 2025 Subjective Patient is feeling better. Feels a little bit of bloating and gaseous distention, however, her pain is better. Tolerating her liquid diet. Passed gas and had some loose stool Physical Exam Physical Exam: Constitutional: Alert, nontoxic HEENT: Mucous membranes moist. Lungs: Clear to auscultation, decreased, no wheezes rales or rhonchi CV: S1-S2, regular Abdomen: Soft, slightly distended, minimal tenderness, no guarding, no rigidity, no rebound Extremities: No significant edema Neuro: No focal deficits Psych: Cooperative, normal mood Results & Data Results & Data Vital Signs (Past 12 Hours) Vital Signs Temp Pulse Pulse Resp BP Pulse Ox O2 Del Method 06/18/25 09:32 37.1 C 76 14 163/88 H 95 Room Air 06/18/25 07:29 36.8 C 72 16 173/73 H 96 Room Air O2 Flow Rate 06/18/25 09:32 1 06/18/25 07:29 Diagnostic Findings Reviewed imaging, laboratory and diagnostic studies. Pertinent findings as below. Potassium 3.9 Creatinine 0.74
--- NOTE | 2025-06-18 15:34 | Surgery Progress Note ---
Date of Service June 18, 2025 Assessment & Plan (1) Abscess of sigmoid colon due to diverticulitis: Plan: Patient here with sigmoid diverticulitis with abscess. Patient overall doing well and is clinically improving, will continue to treat conservatively. She is afebrile and continues on IV antibiotics at this time. Patient has been tolerating clear liquids without any issues of worsening abdominal pain, nausea or vomiting. She has been advanced to a low fiber diet at this time. If patient is able to tolerate dinner and breakfast tomorrow morning hopeful for potential discharge tomorrow. Patient will need to be transition to oral antibiotics at time of discharge for additional coverage. Admission and Anticipated Discharge Date Admission Date: June 14, 2025 Subjective Patient seen and examined this afternoon, states that she is feeling well today. Has tolerated clears and this afternoon was advanced to a low fiber diet. She is able to tolerate without any issues of worsening abdominal pain, nausea or vomiting. Patient continues to pass gas and has had liquid bowel movements today Afebrile and continues on IV antibiotics at this time Physical Exam Constitutional: WD/WN, vitals as above Respiratory: normal respiratory effort, lungs clear to auscultation Cardiovascular: Rate/Rhythm: regular rate Gastrointestinal (Abdomen): Abdomen soft, nondistended, mild tenderness with deep palpation in the LLQ No rebound, guarding, or signs peritonitis Skin: no rashes, warm and dry Results & Data Vital Signs (Past 12 Hours) Vital Signs Temp Pulse Pulse Resp BP Pulse Ox O2 Del Method 06/18/25 15:01 37.0 C 74 16 151/81 H 95 Room Air 06/18/25 13:16 36.9 C 70 16 170/70 H 95 Room Air 06/18/25 09:32 37.1 C 76 14 162/88 H 95 Room Air 06/18/25 07:29 36.8 C 72 16 173/73 H 96 Room Air PG Care Time/CCT Total # of Minutes Spent Total Time Spent with Patient: Total time spent is greater than 50% in coordination of care (as documented) at patient's floor/unit and/or counseling patient: [place] [address] SUB INP/OBS CARE 08/10MIN Patient Type Established History Problem Focused Exam Problem Focused Medical Decision Making Straight Forward Diagnoses Abscess of sigmoid colon due to diverticulitis K57.20
[2025-06-18 20:07] VITALS: RESP 18
[2025-06-18] MEDS: SIMETHICONE 80 MG CHEW PO PRN (20:11)
[2025-06-19 06:17] LABS: Hematocrit (blood only) 38.0 % (37.0-47.0); Hemoglobin 12.6 g/dL (12.0-16.0); Mean Corpuscular Hemoglobin 29.9 pg (25.0-34.0); Mean Corpuscular Volume 90.3 fL (80.0-100.0); Platelet Count 200 K/uL (130-400); RDW Standard Deviation 45.2 fL (36.4-46.3); Red Blood Count 4.21 M/uL (4.20-5.40); White Blood Count 6.34 K/ul (4.8-10.8)
[2025-06-19 06:36] LABS: Anion Gap 8.0 (3-11); Blood Urea Nitrogen 7.0 mg/dl (6-23); Calcium 8.9 mg/dl (8.6-10.3); Carbon Dioxide 25.0 mmol/L (21-32); Chloride 107.0 mmol/L (98-107); Creatinine Clr Calc Pharmacy 55.3 ml/min; Glucose 82.0 mg/dl (70-99(Fasting)); Potassium 3.6 mmol/L (3.5-5.1); Sodium 140.0 mmol/L (136-145)
[2025-06-19 07:46] VITALS: BP 173/90; PULSE 71; TEMP 98.6; O2SAT 96
--- NOTE | 2025-06-19 09:37 | Surgery Progress Note ---
<Statement entered by Jeffery Castelan MD - 06/19/25 12:56> I independently saw and examined the patient, and I agree with the assessment and plan of care. Date of Service June 19, 2025 Assessment & Plan (1) Abscess of sigmoid colon due to diverticulitis: Plan: Pt here w/ diverticulitis and abscess (not amenable to IR drainage) WBC 6.3. vitals stable, no fevers She has made improvements with conservative measures and IV abx Diet has been advanced to low fiber without issues Would complete at least 2 week course of abx She wished to follow up with a [facility] surgeon, however if that falls through she may always call our office Plan for discharge today Admission and Anticipated Discharge Date Admission Date: June 14, 2025 Subjective Patient feels much better overall. Some mild abdominal discomfort, but overall much improved. She is tolerating a diet and having + bowel function Physical Exam Physical Exam: awake/alert, no distress Gastrointestinal (Abdomen): Percussion/Palpation: + abdomen tender (mild left lower discomfort, much improved) and abdomen soft Results & Data Vital Signs (Past 12 Hours) Vital Signs Temp Pulse BP Pulse Ox O2 Del Method 06/19/25 07:46 98.6 F 71 173/90 H 96 Room Air PG Care Time/CCT Total # of Minutes Spent Total Time Spent with Patient: Total time spent is greater than 50% in coordination of care (as documented) at patient's floor/unit and/or counseling patient: Coding Level of Care Code 19869 SUB INP/OBS CARE 08/10MIN Diagnoses Abscess of sigmoid colon due to diverticulitis K57.20
--- NOTE | 2025-06-19 09:48 | Discharge Summary ---
Discharge Summary Date of Service June 19, 2025 Principal Dx & Hospital Course #1 = Principal Diagnosis (1) Abscess of sigmoid colon due to diverticulitis: (2) Acute hypokalemia: (3) Ankylosing spondylitis: (4) Hypertension: Plan Patient 74-year-old female with history of diverticulitis, presented to the emergency room with increasing lower abdominal pain. Imaging in emergency room consistent with diverticulitis with abscess. Patient was admitted to the hospital. She was placed on IV antibiotics and made NPO. Surgical consultation was obtained. They agreed with ongoing medical management. Through her hospitalization patient steadily improved. Surgery reviewed images with interventional radiology for possible drainage of developing abscess. Reviewing images with interventional radiology there did not appear to be a means for any drainage. And recommended ongoing antibiotics. Patient's WBCs normalized. Her pain significantly improved. Her diet was advanced. She tolerated this and was tolerating her diet. On the day of discharge laboratory studies stable. Been afebrile. Pain is essentially resolved. She can be transition to oral antibiotics and be discharged home and follow-up with her outpatient providers. Notes For Next Care Provider Follow-up with surgery Consider outpatient GI consultation for colonoscopy Medication Changes From Visit Augmentin for diverticulitis Lisinopril dose increased Admission HPI Per Admitting Provider History obtained from patient and records. Medical history significant for hypertension, hyperlipidemia, GERD, recurrent diverticulitis, past history of C. difficile, DM2 diet-controlled, ankylosing spondylitis/sacroiliitis on chronic steroid Rx, past tobacco abuse. Last confinement April 2021 for diverticular abscess which resolved with medical management. Patient woke up last night with achy lower abdominal pain reminiscent of diverticulitis attack. Fever 102 at home. Some nausea symptoms. Denies chest pain, SOB. Poor appetite. Patient consulted ER for worsening symptoms. IV Zosyn administered at the ER. Lowest O2 sats of 80s documented at the ER. 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 Lungs: Clear to auscultation, decreased, no wheezes rales or rhonchi CV: S1-S2, regular Abdomen: Soft, nondistended, minimal lower quadrant tenderness, no guarding, no rigidity Extremities: No significant edema Neuro: No focal deficits Psych: Cooperative, normal mood Updated Medication List Medication Instructions Recorded Confirmed Type atorvastatin 80 mg tablet 80 mg PO QPM #0 tabs 02/22/18 06/14/25 History metoprolol tartrate 50 mg tablet 50 mg PO BID #0 tabs 02/22/18 06/14/25 History oxybutynin chloride 5 mg tablet 5 mg PO QPM #0 tabs 02/22/18 06/14/25 History pantoprazole 40 mg tablet,delayed 40 mg PO QAM #30 tabs 02/22/18 06/14/25 History release furosemide 40 mg tablet 40 mg PO QAM 04/21/21 06/14/25 History lisinopril 5 mg tablet 5 mg PO QPM 04/21/21 06/14/25 History acetaminophen 500 mg tablet 500 mg PO HS 01/28/25 06/14/25 History acetaminophen 650 mg 650 mg PO QAM 01/28/25 06/14/25 History tablet,extended release (Tylenol Arthritis Pain) qxuadler-dhoblnb-wotg-lutein tablet 1 tab PO QAM 01/28/25 06/14/25 History potassium chloride 10 mEq 10 meq PO BID 01/28/25 06/14/25 History capsule,extended release prednisone 5 mg tablet 5 mg PO QAM 01/28/25 06/14/25 History amoxicillin 875 mg-potassium 1 tab PO BID #14 tabs 06/19/25 Rx clavulanate 125 mg tablet lisinopril 10 mg tablet 10 mg PO DAILY #30 tabs 06/19/25 Rx Hospital Stay Data Consultations 06/14/25 22:44 ED Decision to Admit Stat 06/14/25 22:54 Consult General Surgery Stat Diagnostic Imagining Performed 06/14/25 19:50 CT abd pelvis IV con only Stat Reviewed imaging, laboratory and diagnostic studies. Pertinent findings as below. WBC 6.3 Hemoglobin 12.6 Electrolytes within normal range Creatinine 0.82 Pending Results Patient Have Any Pending Studies at Discharge: No Discharge Instructions Given to Patient (Per Discharging Provider) Complete course of antibiotics Follow-up with your PCP, you may need outpatient GI referral for colonoscopy Total Time Total Time Spent Total Time Spent (In Minutes): 25
== END 2025-06-19 12:04 | disposition home or self-care (01) | DRG 392 ==
LOC: ED 19:42 → EDINP 23:54 → 4W 06-15 01:33 → 3E 06-15 16:24